=== PATIENT | female | born 1935 | race American Indian/Alaskan Native ===

== ENCOUNTER 2017-08-05 22:50 | Inpatient (IN) | payer MEDICARE ==
--- NOTE | 2017-08-06 00:02 | Emergency Department Report ---
HPI - General Chief Complaint: Dyspnea/Respdistress Time Seen by Provider: 08/05/17 23:47 - HPI HPI: Room 22 The patient is an 82-year-old female presenting with a chief complaint of chest pain or shortness of breath. The patient is a very poor historian but acknowledges she's felt short of breath the past 3 days. There has been a cough. Patient also acknowledges she has chest pain but will not respond when asked about the details of her chest pain. The patient denies any history of fever. Family states the patient also has lost her appetite for the past 3 days. Location: Lungs, chest, see above Duration: 3 days Quality: Shortness of breath Severity: Moderate Modifying factors: [see above] Context: [see above] Mode of transportation: [not driving] ED Past Medical Hx - Past Medical History Previous Medical History?: Yes Hx Hypertension: Yes - Surgical History Past Surgical History?: Yes Additional Surgical History: left knee replacement. - Family History Family history: no significant - Social History Smoking Status: Never Smoker Substance Use Type: Alcohol (rarely) ED Review of Systems ROS: Stated complaint: CP Other details as noted in HPI Comment: Unobtainable due to pts medical conditions (patient reported historian and does not answer all questions) Respiratory: shortness of breath Cardiovascular: chest pain Physical Exam - Physical Exam Vital Signs: Vital Signs 08/05/17 23:37 Temperature 98.2 F Pulse Rate 99 H Respiratory 24 Rate Blood Pressure 90/59 O2 Sat by Pulse 64 L Oximetry Physical Exam: GENERAL: The patient is well-developed well-nourished elderly female lying on stretcher not appearing to be in acute distress. [] HEENT: Normocephalic. Atraumatic. Extraocular motions are intact. Patient has moist mucous membranes. NECK: Supple. Trachea midline CHEST/LUNGS: Clear to auscultation. There is no respiratory distress noted. HEART/CARDIOVASCULAR: Regular. There is no tachycardia. There is no gallop rub or murmur. ABDOMEN: Abdomen is soft, nontender. Patient has normal bowel sounds. There is no abdominal distention. SKIN: There is no rash. There is 2+ bilateral lower extremity pitting edema. There is no diaphoresis. NEURO: The patient is awake and alert. The patient is intermittently cooperative. The patient has normal speech MUSCULOSKELETAL: There is no evidence of acute injury. ED Course Vital Signs 08/05/17 23:37 Temperature 98.2 F Pulse Rate 99 H Respiratory 24 Rate Blood Pressure 90/59 O2 Sat by Pulse 64 L Oximetry ED Medical Decision Making - Lab Data Result diagrams: 08/06/17 00:21 08/06/17 00:21 - EKG Data -: EKG Interpreted by Me EKG shows normal: sinus rhythm Rate: normal - EKG Data When compared to previous EKG there are: previous EKG unavailable Interpretation: nonspecific ST-T wave eun (T-wave inversion in lead aVL, V2, V3) - Radiology Data Radiology results: report reviewed (VQ scan), image reviewed (chest x-ray, VQ scan) interpreted by me: Chest x-ray- indistinct right hemidiaphragm. Possible early infiltrate versus effusion/CHF [facility] [address] [place] [address] Nuclear Medicine Report Signed Patient: ROSALES BECKHAM MR#: [id number] : 1935 Acct:[id number] Age/Sex: 82 / F ADM Date: 08/05/17 Loc: ED Attending Dr: Ordering Physician: CASA JACOBSEN MD Date of Service: 08/06/17 Procedure(s): NM lung scan perf/vent Accession Number(s): [id number] cc: CASA JACOBSEN MD FINAL REPORT PROCEDURE: NM LUNG SCAN PERF/VENT TECHNIQUE: Five mCi Tc-99m MAA was injected IV for pulmonary perfusion imaging in multiple projections. Fifteen mCi XE-133 was inhaled for pulmonary ventilation imaging in multiple projections. Injection site: RIGHT antecubital fossa. CPT 04758 REGULATORY GUIDELINES: The patient was released based upon guidelines established in [place] State Regulations for Protection Against Radiation, Chapter 1199-04-25-35, Release of Individuals Containing Radioactive Drugs or Implants. HISTORY: hypoxia, chest pain COMPARISON: No prior studies are available for comparison. FINDINGS: Perfusion: No defects . Ventilation: No defects . IMPRESSION: Normal Examination Transcribed By: CO Dictated By: FANTA GU MD Electronically Authenticated By: FANTA GU MD Signed Date/Time: 08/06/17340 DD/ 0 TD/TT: 08/06/17340 - Differential Diagnosis congestive heart failure, ACS, pericarditis, pneumonia Critical care attestation.: If time is entered above; I have spent that time in minutes in the direct care of this critically ill patient, excluding procedure time. ED Disposition Clinical Impression: Chest pain, Shortness of breath, Congestive heart failure, Renal insufficiency , Hypoxia Disposition: OP ADMIT IP TO THIS HOSP Is pt being admited?: Yes Does the pt Need Aspirin: No (renal insufficiency) Condition: Serious Instructions: Chest Pain (ED) Time of Disposition: 03:54 (hospitalist paged (Dr. Larisa Ortiz))
[2017-08-06 00:43] LABS: Hematocrit 35.1 % (30.3-42.9); Hemoglobin 10.8 gm/dl (10.1-14.3); Mean Corpuscular Volume 83 fl (79-97); Red Blood Count 4.21 M/mm3 (3.65-5.03)
[2017-08-06 00:44] LABS: Mean Corpuscular HGB Conc 31 % (30-34); Mean Corpuscular Hemoglobin 26 pg (28-32); Platelet Count 250 K/mm3 (140-440)
[2017-08-06 00:47] LABS: INR 0.96 (0.87-1.13)
[2017-08-06 00:48] LABS: Partial Thromboplastin Time 24.2 Sec. (24.2-36.6)
[2017-08-06 01:02] LABS: BUN/Creatinine Ratio 14; Blood Urea Nitrogen 33 mg/dL (7-17); Calcium 8.6 mg/dL (8.4-10.2); Hemolysis Index 2
[2017-08-06 01:28] LABS: Creatine Kinase MB < 1.0 ng/mL (0.0-4.0)
--- NOTE | 2017-08-06 02:06 | XRay Report ---
FINAL REPORT EXAM: XR CHEST 1V AP HISTORY: Shortness of breath. TECHNIQUE: A single frontal portable radiograph of the chest was obtained. No prior studies are available for comparison. FINDINGS: The heart is enlarged, and the aorta is mildly tortuous. There is mild central pulmonary vascular congestion. There are mild bibasilar patchy infiltrates, and probable small bilateral pleural effusions. There is superimposed mild patchy infiltrate in the lateral right midlung. Taken together, these findings may indicate pulmonary edema/CHF, though superimposed pneumonia is not excluded. There is no pneumothorax. Mild spondylotic changes are seen in the spine. IMPRESSION: Cardiomegaly and mild pulmonary vascular congestion. Bilateral infiltrates, most prominent at the bases, with small bilateral pleural effusions. These findings may be on the basis of pulmonary edema/CHF versus pneumonia.
[2017-08-06 02:38] LABS: Band Neutrophils # (Manual) 0.2 K/mm3; Basophils % (Manual) 0 % (0.0-1.8); Eosinophils % (Manual) 0 % (0.0-4.3); Myelocytes # (Manual) 0.1 K/mm3; Total Cells Counted 100
[2017-08-06 02:39] LABS: Hypochromasia 1+; Platelet Estimate Consistent w Auto; Target Cells Few
[2017-08-06] MEDS ORDERED: LASIX IV ONE (03:26)
--- NOTE | 2017-08-06 03:46 | Nuclear Medicine Report ---
FINAL REPORT PROCEDURE: NM LUNG SCAN PERF/VENT TECHNIQUE: Five mCi Tc-99m MAA was injected IV for pulmonary perfusion imaging in multiple projections. Fifteen mCi XE-133 was inhaled for pulmonary ventilation imaging in multiple projections. Injection site: RIGHT antecubital fossa. CPT 22672 REGULATORY GUIDELINES: The patient was released based upon guidelines established in [place] State Regulations for Protection Against Radiation, Chapter 5203-87-19-35, Release of Individuals Containing Radioactive Drugs or Implants. HISTORY: hypoxia, chest pain COMPARISON: No prior studies are available for comparison. FINDINGS: Perfusion: No defects . Ventilation: No defects . IMPRESSION: Normal Examination
[2017-08-06] MEDS ORDERED: LASIX ONE (04:55)
[2017-08-06] MEDS ORDERED: LEVAQUIN 750MG/150ML 750 MG/150 ML BAG IV SCH ×2 (06:00→11:00)
[2017-08-06] MEDS ORDERED: TYLENOL PO PRN (06:22)
[2017-08-06] MEDS ORDERED: ZOFRAN IV PRN (06:22)
[2017-08-06] MEDS ORDERED: SODIUM CHLORIDE FLUSH SYRINGE 10 ML IV PRN (06:22)
--- NOTE | 2017-08-06 06:28 | History and Physical Report ---
History of Present Illness Date of examination: 08/06/17 Date of admission: 08/06/17 04:21 History of present illness: 82-year-old woman comes emergency room with complaints of shortness of breath. She is unable to give a history, probably has underlying dementia. Her chest x- ray shows she has CHF and pneumonia. Review of system is unobtainable PAST MEDICAL HISTORY: Unknown PAST SURGICAL HISTORY: Unknown SOCIAL HISTORY: Unknown FAMILY HISTORY: Unknown Medications and Allergies Allergies Allergy/AdvReac Type Severity Reaction Status Date / Time No Known Allergies Allergy Verified 08/05/17 23:41 Home Medications Medication Instructions Recorded Confirmed Last Taken Type Unobtainable 08/06/17 08/06/17 Unknown History Active Meds: Active Medications Enoxaparin Sodium (Lovenox) 30 mg SUB-Q QDAY [facility] Levofloxacin/Dextrose (Levaquin 750mg/150ml) 750 mg in 150 mls @ 100 mls/hr IV Q48H [facility]; Protocol Exam - Physical Exam Narrative exam: Gen. appearance: Patient lying in bed, no apparent distress HEENT: Normocephalic, atraumatic, pupils equally round and reactive to light, extraocular movement intact, and no sclericterus,. No JVD or thyromegaly or nodule,neck supple, no carotid bruit ,mucous membranes moist, no exudate or erythema Heart: S1, S2, regular rate and rhythm Lungs: Crackles bilaterally, breathing comfortable Abdomen: Positive bowel sounds, nontender, nondistended, no organomegaly Extremity: No edema, cyanosis, clubbing Skin: No rash, nodules, warm, dry Neuro: Oriented 3, cranial nerves II-12 intact, speech is fluent, motor and sensory intact - Constitutional Vitals: Temp Pulse Resp BP Pulse Ox 97.4 F L 72 20 105/64 95 08/06/17 06:06 08/06/17 06:06 08/06/17 06:06 08/06/17 06:06 08/06/17 06:06 Results - Labs CBC & Chem 7: 08/09/17 16:32 08/09/17 16:32 Labs: Abnormal lab results 08/06/17 08/06/17 08/06/17 Range/Units 00:15 00:21 00:21 MCH 26 L (28-32) pg RDW 18.0 H (13.2-15.2) % Seg Neuts % (Manual) 84.0 H (40.0-70.0) % Lymphocytes % (Manual) 6.0 L (13.4-35.0) % Nucleated RBC % 4.0 H (0.0-0.9) % Seg Neutrophils # Man 8.1 H (1.8-7.7) K/mm3 Lymphocytes # (Manual) 0.6 L (1.2-5.4) K/mm3 D-Dimer (0-234) ng/mlDDU POC ABG pCO2 57.0 H (35-45) POC ABG pO2 41 L (80-105) Chloride 94.5 L (98-107) mmol/L Carbon Dioxide 32 H (22-30) mmol/L BUN 33 H (7-17) mg/dL Creatinine 2.4 H (0.7-1.2) mg/dL Glucose 128 H (65-100) mg/dL 08/06/17 Range/Units 00:21 MCH (28-32) pg RDW (13.2-15.2) % Seg Neuts % (Manual) (40.0-70.0) % Lymphocytes % (Manual) (13.4-35.0) % Nucleated RBC % (0.0-0.9) % Seg Neutrophils # Man (1.8-7.7) K/mm3 Lymphocytes # (Manual) (1.2-5.4) K/mm3 D-Dimer 765.25 H (0-234) ng/mlDDU POC ABG pCO2 (35-45) POC ABG pO2 (80-105) Chloride (98-107) mmol/L Carbon Dioxide (22-30) mmol/L BUN (7-17) mg/dL Creatinine (0.7-1.2) mg/dL Glucose (65-100) mg/dL - Imaging and Cardiology EKG: image reviewed Chest x-ray: image reviewed Assessment and Plan Assessment CHF, probably acute on chronic diastolic dysfunction Community-acquired pneumonia Chronic kidney disease Plan Admit to medicine Start IV Levaquin, obtain blood cultures Diurese with IV Lasix, start aspirin Hold beta elias, MESFIN inhibitor for now, blood pressure will not tolerate Cardiac enzymes, echo 2. She prophylaxis
[2017-08-06 08:00] LABS: Creatine Kinase MB < 1.0 ng/mL (0.0-4.0)
[2017-08-06] MEDS: BABY ASPIRIN PO SCH (10:48)
[2017-08-06] MEDS: LOVENOX SUB-Q SCH (10:50)
--- NOTE | 2017-08-06 12:31 | Consultation ---
History of Present Illness Consult date: 08/06/17 Consult reason: congestive heart failure History of present illness: This is an 82yr old women who was brought in with shortness of breath, admitted with CHF exacerbation. History is unobtainable. There were no reports of chest pain. Labs notable for renal insufficiency, creatinine of 2.4. Chest xray documents cardiomegaly with vascular congestion. 12 lead ECG is atrial fibrillation with a well controlled ventricular rate. It is unclear if the patient is on oral anticoagualtion therapy, there are no home medications listed. A cardiac consultation was requested for CHF management. Medications and Allergies Allergies Allergy/AdvReac Type Severity Reaction Status Date / Time No Known Allergies Allergy Verified 08/05/17 23:41 Home Medications Medication Instructions Recorded Confirmed Last Taken Type Unobtainable 08/06/17 08/06/17 Unknown History Active Meds: Active Medications Acetaminophen (Tylenol) 650 mg PO Q4H PRN PRN Reason: Pain MILD(1-3)/Fever >100.5/HARRISON Aspirin (Baby Aspirin) 81 mg PO QDAY [facility] Last Admin: 08/06/17 10:48 Dose: 81 mg Enoxaparin Sodium (Lovenox) 30 mg SUB-Q QDAY [facility] Last Admin: 08/06/17 10:50 Dose: 30 mg Furosemide (Lasix) 20 mg IV BID@0600,1800 [facility] Levofloxacin/Dextrose (Levaquin 750mg/150ml) 750 mg in 150 mls @ 100 mls/hr IV Q48HR [facility]; Protocol Last Admin: 08/06/17 10:48 Dose: 100 mls/hr Ondansetron HCl (Zofran) 4 mg IV Q8H PRN PRN Reason: Nausea And Vomiting Sodium Chloride (Sodium Chloride Flush Syringe 10 Ml) 10 ml IV BID [facility] Sodium Chloride (Sodium Chloride Flush Syringe 10 Ml) 10 ml IV PRN PRN PRN Reason: LINE FLUSH Physical Examination Vital Signs Temp Pulse Resp BP Pulse Ox 98.2 F 99 H 24 90/59 64 L 08/05/17 23:37 08/05/17 23:37 08/05/17 23:37 08/05/17 23:37 08/05/17 23:37 General appearance: no acute distress Cardiac: Positive: irregularly irregular Results 08/06/17 00:21 05/21/18 00:21 Cardiac Enzymes 08/06/17 08/06/17 Range/Units 00:21 06:36 CK-MB (CK-2) < 1.0 < 1.0 (0.0-4.0) ng/mL Coagulation 08/06/17 Range/Units 00:21 PT 13.3 (12.2-14.9) Sec. INR 0.96 (0.87-1.13) APTT 24.2 (24.2-36.6) Sec. CBC 08/06/17 Range/Units 00:21 WBC 9.7 (4.5-11.0) K/mm3 RBC 4.21 (3.65-5.03) M/mm3 Hgb 10.8 (10.1-14.3) gm/dl Hct 35.1 (30.3-42.9) % Plt Count 250 (140-440) K/mm3 Lymph # Residential Substance Abuse Counselor [place] # Residential Substance Abuse Counselor Eos # Residential Substance Abuse Counselor Baso # Residential Substance Abuse Counselor Comprehensive Metabolic Panel 08/06/17 Range/Units 00:21 Sodium 140 (137-145) mmol/L Potassium 3.7 (3.6-5.0) mmol/L Chloride 94.5 L (98-107) mmol/L Carbon Dioxide 32 H (22-30) mmol/L BUN 33 H (7-17) mg/dL Creatinine 2.4 H (0.7-1.2) mg/dL Glucose 128 H (65-100) mg/dL Calcium 8.6 (8.4-10.2) mg/dL Assessment and Plan Acute heart failure Atrial fibrillation, rate control Acute renal failure
[2017-08-06 14:12] LABS: Creatine Kinase MB < 1.0 ng/mL (0.0-4.0)
--- NOTE | 2017-08-06 16:27 | Event Note ---
Date: 08/06/17 82-year-old -[place] female with medical history significant for dementia, morbid obesity was admitted yesterday after she was presented with shortness of breath. Patient is diagnosed with pneumonia and CHF and A. fib. Patient is on IV antibiotics, IV lasix, cardiology consult appreciated. Continue management per H&P. Patient was seen and evaluated this morning, labs imaging and H&P were reviewed.
[2017-08-06] MEDS: LASIX IV SCH (17:46)
[2017-08-06] MEDS: SODIUM CHLORIDE FLUSH SYRINGE 10 ML IV SCH ×2 (17:47→22:55)
[2017-08-07] MEDS: LASIX IV SCH ×2 (05:55→17:38)
[2017-08-07 08:21] LABS: Calcium 8.4 mg/dL (8.4-10.2)
[2017-08-07 08:24] LABS: Hematocrit 31.9 % (30.3-42.9); Mean Corpuscular HGB Conc 31 % (30-34); Mean Corpuscular Hemoglobin 26 pg (28-32); Mean Corpuscular Volume 83 fl (79-97); Platelet Count 192 K/mm3 (140-440); Red Blood Count 3.83 M/mm3 (3.65-5.03); Red Cell Distribution Width 17.5 % (13.2-15.2)
[2017-08-07 08:26] LABS: Basophils % (Auto) 0.2 % (0.0-1.8); Eosinophils % (Auto) 0.1 % (0.0-4.3); Lymphocytes # (Auto) 0.8 K/mm3 (1.2-5.4); Monocytes # (Auto) 1.2 K/mm3 (0.0-0.8); Monocytes % (Auto) 12.5 % (0.0-7.3)
--- NOTE | 2017-08-07 10:07 | Progress Note ---
Assessment and Plan Assessment and plan: 82 year old -Dominican female with medical history significant for dementia, HIV/AIDS, A. fib on anticoagulation was brought to the emergency department for the complains of shortness of breath. In the emergency department chest x-ray was done and showed pulmonary congestion, elevated creatinine Congestive heart failure - Diastolic CHF - Patient is on IV Lasix - Blood pressure is marginal and couldn't tolerate any other blood pressure medication Atrial fibrillation - EKG showed atrial fibrillation, couldn't get previous EKG - We'll continue Coumadin TREY, ?CKD - No baseline to compare - Creatinine decreased from 2.4 yesterday to 1.7 today, likely due to cardiorenal syndrome Hyperkalemia - Kayexalate - We'll check BMP in the morning Dementia - supportive care HIV/AIDS - Restart home medication DVT prophylaxis - On heparin Disposition -Continue inpatient care History Interval history: Patient is still complaining shortness of breath. Her was in the room and have discussed the management plan with the patient and her . I get the medical record from [facility]. Hospitalist Physical - Physical exam Narrative exam: Not in cardiopulmonary distress. The patient is morbidly obese. Vital signs as documented. Head exam is unremarkable. No scleral icterus . Neck is without jugular venous distension, thyromegaly, or carotid bruits. Lungs are clear to auscultation. Cardiac exam reveals irregular rate and Rhythm. Abdominal exam reveals normal bowel sounds. Extremities are nonedematous and both femoral and pedal pulses are normal. [employer]: Alert and oriented 1. No focal weakness. - Constitutional Vitals: Temp Pulse Resp BP Pulse Ox 98.5 F 91 H 24 146/77 94 08/07/17 07:46 08/07/17 07:46 08/07/17 07:46 08/07/17 07:46 08/07/17 08:19 General appearance: Present: no acute distress Results - Labs CBC & Chem 7: 08/07/17 06:38 08/07/17 06:38 Labs: Laboratory Last Values WBC 9.2 K/mm3 (4.5-11.0) 08/07/17 06:38 RBC 3.83 M/mm3 (3.65-5.03) 08/07/17 06:38 Hgb 10.0 gm/dl (10.1-14.3) L 08/07/17 06:38 Hct 31.9 % (30.3-42.9) 08/07/17 06:38 MCV 83 fl (79-97) 08/07/17 06:38 MCH 26 pg (28-32) L 08/07/17 06:38 MCHC 31 % (30-34) 08/07/17 06:38 RDW 17.5 % (13.2-15.2) H 08/07/17 06:38 Plt Count 192 K/mm3 (140-440) 08/07/17 06:38 Lymph % (Auto) 9.0 % (13.4-35.0) L 08/07/17 06:38 [place] % (Auto) 12.5 % (0.0-7.3) H 08/07/17 06:38 Eos % (Auto) 0.1 % (0.0-4.3) 08/07/17 06:38 Baso % (Auto) 0.2 % (0.0-1.8) 08/07/17 06:38 Lymph # 0.8 K/mm3 (1.2-5.4) L 08/07/17 06:38 [place] # 1.2 K/mm3 (0.0-0.8) H 08/07/17 06:38 Eos # 0.0 K/mm3 (0.0-0.4) 08/07/17 06:38 Baso # 0.0 K/mm3 (0.0-0.1) 08/07/17 06:38 Add Manual Diff Complete 08/06/17 00:21 Total Counted 100 08/06/17 00:21 Seg Neutrophils % 78.2 % (40.0-70.0) H 08/07/17 06:38 Seg Neuts % (Manual) 84.0 % (40.0-70.0) H 08/06/17 00:21 Band Neutrophils % 2.0 % 08/06/17 00:21 Lymphocytes % (Manual) 6.0 % (13.4-35.0) L 08/06/17 00:21 Reactive Lymphs % (Man) 0 % 08/06/17 00:21 Monocytes % (Manual) 7.0 % (0.0-7.3) 08/06/17 00:21 Eosinophils % (Manual) 0 % (0.0-4.3) 08/06/17 00:21 Basophils % (Manual) 0 % (0.0-1.8) 08/06/17 00:21 Metamyelocytes % 0 % 08/06/17 00:21 Myelocytes % 1.0 % 08/06/17 00:21 Promyelocytes % 0 % 08/06/17 00:21 Blast Cells % 0 % 08/06/17 00:21 Nucleated RBC % 4.0 % (0.0-0.9) H 08/06/17 00:21 Seg Neutrophils # 7.2 K/mm3 (1.8-7.7) 08/07/17 06:38 Seg Neutrophils # Man 8.1 K/mm3 (1.8-7.7) H 08/06/17 00:21 Band Neutrophils # 0.2 K/mm3 08/06/17 00:21 Lymphocytes # (Manual) 0.6 K/mm3 (1.2-5.4) L 08/06/17 00:21 Abs React Lymphs (Man) 0.0 K/mm3 08/06/17 00:21 Monocytes # (Manual) 0.7 K/mm3 (0.0-0.8) 08/06/17 00:21 Eosinophils # (Manual) 0.0 K/mm3 (0.0-0.4) 08/06/17 00:21 Basophils # (Manual) 0.0 K/mm3 (0.0-0.1) 08/06/17 00:21 Metamyelocytes # 0.0 K/mm3 08/06/17 00:21 Myelocytes # 0.1 K/mm3 08/06/17 00:21 Promyelocytes # 0.0 K/mm3 08/06/17 00:21 Blast Cells # 0.0 K/mm3 08/06/17 00:21 WBC Morphology Not Reportable 08/06/17 00:21 Hypersegmented Neuts Not Reportable 08/06/17 00:21 Hyposegmented Neuts Not Reportable 08/06/17 00:21 Hypogranular Neuts Not Reportable 08/06/17 00:21 Smudge Cells Not Reportable 08/06/17 00:21 Toxic Granulation Not Reportable 08/06/17 00:21 Toxic Vacuolation Not Reportable 08/06/17 00:21 Dohle Bodies Not Reportable 08/06/17 00:21 Pelger-Huet Anomaly Not Reportable 08/06/17 00:21 Bryant Rods Not Reportable 08/06/17 00:21 Platelet Estimate Consistent w auto 08/06/17 00:21 Clumped Platelets Not Reportable 08/06/17 00:21 Plt Clumps, EDTA Not Reportable 08/06/17 00:21 Large Platelets Not Reportable 08/06/17 00:21 Giant Platelets Not Reportable 08/06/17 00:21 Platelet Satelliting Not Reportable 08/06/17 00:21 Plt Morphology Comment Not Reportable 08/06/17 00:21 RBC Morphology Not Reportable 08/06/17 00:21 Dimorphic RBCs Not Reportable 08/06/17 00:21 Polychromasia Not Reportable 08/06/17 00:21 Hypochromasia 1+ 08/06/17 00:21 Poikilocytosis Not Reportable 08/06/17 00:21 Anisocytosis Not Reportable 08/06/17 00:21 Microcytosis Not Reportable 08/06/17 00:21 Macrocytosis Not Reportable 08/06/17 00:21 Spherocytes Not Reportable 08/06/17 00:21 Pappenheimer Bodies Not Reportable 08/06/17 00:21 Sickle Cells Not Reportable 08/06/17 00:21 Target Cells Few 08/06/17 00:21 Tear Drop Cells Not Reportable 08/06/17 00:21 Ovalocytes Not Reportable 08/06/17 00:21 Helmet Cells Not Reportable 08/06/17 00:21 [place] Bodies Not Reportable 08/06/17 00:21 [place] Rings Not Reportable 08/06/17 00:21 [place] Cells Not Reportable 08/06/17 00:21 Bite Cells Not Reportable 08/06/17 00:21 Crenated Cell Not Reportable 08/06/17 00:21 Elliptocytes Not Reportable 08/06/17 00:21 Acanthocytes (Spur) Not Reportable 08/06/17 00:21 Rouleaux Not Reportable 08/06/17 00:21 Hemoglobin C Crystals Not Reportable 08/06/17 00:21 Schistocytes Not Reportable 08/06/17 00:21 Malaria parasites Not Reportable 08/06/17 00:21 Carlo Bodies Not Reportable 08/06/17 00:21 Hem Pathologist Commnt No 08/06/17 00:21 PT 13.3 Sec. (12.2-14.9) 08/06/17 00:21 INR 0.96 (0.87-1.13) 08/06/17 00:21 APTT 24.2 Sec. (24.2-36.6) 08/06/17 00:21 D-Dimer 765.25 ng/mlDDU (0-234) H 08/06/17 00:21 POC ABG pH 7.395 (7.35-7.45) 08/06/17 00:15 POC ABG pCO2 57.0 (35-45) H 08/06/17 00:15 POC ABG pO2 41 (80-105) L 08/06/17 00:15 POC ABG HCO3 34.9 08/06/17 00:15 POC ABG Total CO2 37 08/06/17 00:15 POC ABG O2 Sat 75 08/06/17 00:15 POC ABG Base Excess 10 08/06/17 00:15 FiO2 21 % 08/06/17 00:15 Sodium 139 mmol/L (137-145) 08/07/17 06:38 Potassium 5.5 mmol/L (3.6-5.0) H D 08/07/17 06:38 Chloride 98.4 mmol/L (98-107) 08/07/17 06:38 Carbon Dioxide 31 mmol/L (22-30) H 08/07/17 06:38 Anion Gap 15 mmol/L 08/07/17 06:38 BUN 41 mg/dL (7-17) H 08/07/17 06:38 Creatinine 1.7 mg/dL (0.7-1.2) H 08/07/17 06:38 Estimated GFR 35 ml/min 08/07/17 06:38 BUN/Creatinine Ratio 24 % 08/07/17 06:38 Glucose 88 mg/dL (65-100) 08/07/17 06:38 Calcium 8.4 mg/dL (8.4-10.2) 08/07/17 06:38 Total Creatine Kinase 37 units/L (30-135) 05/21/18 12:45 CK-MB (CK-2) < 1.0 ng/mL (0.0-4.0) 08/06/17 12:45 CK-MB (CK-2) Rel Index 2.7 (0-4) 08/06/17 12:45 Troponin T < 0.010 ng/mL (0.00-0.029) 08/06/17 12:45
[2017-08-07] MEDS: BABY ASPIRIN PO SCH (10:51)
[2017-08-07] MEDS: LOVENOX SUB-Q SCH (10:51)
[2017-08-07] MEDS: SODIUM CHLORIDE FLUSH SYRINGE 10 ML IV SCH ×2 (10:51→22:00)
--- NOTE | 2017-08-07 13:14 | Progress Note ---
Assessment and Plan Acute heart failure normal LVEF 55-60% by echo 01/2017 Chronic Atrial fibrillation, rate control reports of warfarin for oral anticoagulation as an outpatient. It is unclear on compliance, INR sub-therapeutic at 0.96 on presentation. Acute renal failure Hx of HIV infection Recommendations: Echocardiogram will be done for reassessment of LVEF. Optimal diuretic therapy for heart failure and fluid overload. Resume oral anticoagulation for stroke prevention. Subjective Date of service: 08/07/17 Interval history: No interval changes. Records reviewed from [facility]. Objective Vital Signs Temp Pulse Pulse Resp BP BP Pulse Ox 08/07/17 12:20 98.5 F 107 H 20 110/79 93 08/07/17 08:19 94 08/07/17 07:46 98.5 F 91 H 24 146/77 97 08/07/17 04:57 98.9 F 106 H 18 110/66 96 08/07/17 04:21 116 H 104/46 96 08/07/17 00:21 98.9 F 104 H 18 103/36 95 08/06/17 23:26 103/31 08/06/17 23:00 84 08/06/17 21:50 104 H 26 H 100 08/06/17 21:45 86 08/06/17 21:03 80 16 93 08/06/17 19:54 98.2 F 84 20 97/56 91 08/06/17 19:26 95 H 97/56 92 08/06/17 17:00 97.6 F 74 22 109/79 93 08/06/17 15:10 97.6 F 77 22 109/79 93 - Physical Examination General: No Apparent Distress Cardiac: Positive: irregularly irregular - Labs and Meds Cardiac Enzymes 08/06/17 Range/Units 12:45 CK-MB (CK-2) < 1.0 (0.0-4.0) ng/mL CBC 08/07/17 Range/Units 06:38 WBC 9.2 (4.5-11.0) K/mm3 RBC 3.83 (3.65-5.03) M/mm3 Hgb 10.0 L (10.1-14.3) gm/dl Hct 31.9 (30.3-42.9) % Plt Count 192 (140-440) K/mm3 Lymph # 0.8 L (1.2-5.4) K/mm3 [place] # 1.2 H (0.0-0.8) K/mm3 Eos # 0.0 (0.0-0.4) K/mm3 Baso # 0.0 (0.0-0.1) K/mm3 Comprehensive Metabolic Panel 08/07/17 Range/Units 06:38 Sodium 139 (137-145) mmol/L Potassium 5.5 H D (3.6-5.0) mmol/L Chloride 98.4 (98-107) mmol/L Carbon Dioxide 31 H (22-30) mmol/L BUN 41 H (7-17) mg/dL Creatinine 1.7 H (0.7-1.2) mg/dL Glucose 88 (65-100) mg/dL Calcium 8.4 (8.4-10.2) mg/dL - Imaging and Cardiology EKG: image reviewed
[2017-08-07] MEDS ORDERED: TIVICAY 50 MG PO SCH (16:00)
[2017-08-07] MEDS ORDERED: PREZCOBIX PO SCH (16:00)
[2017-08-07] MEDS ORDERED: KIONEX PO ONE (17:00)
[2017-08-07] MEDS: ZIAGEN PO SCH (17:40)
[2017-08-07] MEDS: TIVICAY (NF) PO SCH (17:40)
[2017-08-07] MEDS: PREZISTA PO SCH (17:41)
[2017-08-07] MEDS: COUMADIN PO SCH (17:42)
[2017-08-08] MEDS: LASIX IV SCH ×2 (06:26→18:24)
[2017-08-08 07:03] LABS: Basophils # (Auto) 0.1 K/mm3 (0.0-0.1); Basophils % (Auto) 0.6 % (0.0-1.8); Hematocrit 28.6 % (30.3-42.9); Hemoglobin 8.9 gm/dl (10.1-14.3); Lymphocytes # (Auto) 1.1 K/mm3 (1.2-5.4); Lymphocytes % (Auto) 10.2 % (13.4-35.0); Mean Corpuscular HGB Conc 31 % (30-34); Mean Corpuscular Volume 82 fl (79-97); Monocytes # (Auto) 1.2 K/mm3 (0.0-0.8); Monocytes % (Auto) 10.9 % (0.0-7.3); Platelet Count 202 K/mm3 (140-440); Red Blood Count 3.47 M/mm3 (3.65-5.03); Red Cell Distribution Width 17.3 % (13.2-15.2)
[2017-08-08 07:08] LABS: INR 1.1 (0.87-1.13)
[2017-08-08 07:22] LABS: BUN/Creatinine Ratio 32; Blood Urea Nitrogen 32 mg/dL (7-17); Calcium 8.5 mg/dL (8.4-10.2); Hemolysis Index 27
[2017-08-08 07:37] LABS: Mean Corpuscular Hemoglobin 26 pg (28-32)
[2017-08-08] MEDS ORDERED: LEVAQUIN PO SCH (10:00)
--- NOTE | 2017-08-08 10:24 | Progress Note ---
Assessment and Plan Pulmonary edema ventilation perfusion study of the lungs was negative for pulmonary embolism. Chronic Atrial fibrillation, rate control reports of warfarin for oral anticoagulation as an outpatient. It is unclear on compliance, INR sub- therapeutic at 0.96 on presentation. Acute renal failure Hx of HIV infection Echocardiogram shows severe dilatation of the right heart chambers, moderate tricuspid regurgitation, and moderate pulmonary hypertension with pulmonary artery systolic pressures of 55 mmHg. Findings are consistent with chronic cor pulmonale. In addition to right heart findings, there is marked dilatation of the left atrium. There is at least mild to moderate mitral regurgitation. Left ventricular chamber size and systolic function are normal with an ejection fraction of 55%. Continue optimal rate controlling agents and oral anticoagulation for chronic atrial fibrillation. Otherwise, conservative cardiac management. Subjective Date of service: 08/08/17 Interval history: Patient reports her breathing is better. Family member at bedside. Objective Vital Signs Temp Pulse Resp BP BP Pulse Ox 08/08/17 08:36 99.7 F H 108 H 22 126/76 94 08/08/17 05:06 97.9 F 111 H 18 104/55 98 08/08/17 02:01 92 H 26 H 100 08/08/17 00:12 98.2 F 114 H 18 127/68 99 08/07/17 23:18 94 H 22 100 08/07/17 23:15 90 08/07/17 22:00 18 08/07/17 19:22 98.2 F 18 138/78 08/07/17 16:55 98.2 F 117 H 20 131/66 93 08/07/17 12:20 98.5 F 107 H 20 110/79 93 - Physical Examination General: No Apparent Distress Cardiac: Positive: irregularly irregular - Labs and Meds Coagulation 08/08/17 Range/Units 06:36 PT 14.8 (12.2-14.9) Sec. INR 1.10 (0.87-1.13) CBC 08/08/17 Range/Units 06:36 WBC 11.2 H (4.5-11.0) K/mm3 RBC 3.47 L (3.65-5.03) M/mm3 Hgb 8.9 L (10.1-14.3) gm/dl Hct 28.6 L (30.3-42.9) % Plt Count 202 (140-440) K/mm3 Lymph # 1.1 L (1.2-5.4) K/mm3 [place] # 1.2 H (0.0-0.8) K/mm3 Eos # 0.0 (0.0-0.4) K/mm3 Baso # 0.1 (0.0-0.1) K/mm3 Comprehensive Metabolic Panel 08/08/17 Range/Units 06:36 Sodium 150 H D (137-145) mmol/L Potassium 4.0 D (3.6-5.0) mmol/L Chloride 100.6 (98-107) mmol/L Carbon Dioxide 41 H* D (22-30) mmol/L BUN 32 H (7-17) mg/dL Creatinine 1.0 (0.7-1.2) mg/dL Glucose 124 H (65-100) mg/dL Calcium 8.5 (8.4-10.2) mg/dL
[2017-08-08] MEDS: PREZISTA PO SCH (10:39)
[2017-08-08] MEDS: BABY ASPIRIN PO SCH (10:39)
[2017-08-08] MEDS: ZIAGEN PO SCH (10:40)
[2017-08-08] MEDS: TIVICAY (NF) PO SCH (10:40)
[2017-08-08] MEDS: SODIUM CHLORIDE FLUSH SYRINGE 10 ML IV SCH ×2 (10:43→22:16)
--- NOTE | 2017-08-08 17:02 | Progress Note ---
Assessment and Plan Assessment and plan: 82 year old -British female with medical history significant for dementia, HIV/AIDS, A. fib on anticoagulation was brought to the emergency department for the complains of shortness of breath. In the emergency department chest x-ray was done and showed pulmonary congestion, elevated creatinine Congestive heart failure - Diastolic CHF - Patient is on IV Lasix - Blood pressure is marginal and couldn't tolerate any other blood pressure medication Cor pulmonale - Pulmonary consulted Atrial fibrillation - EKG showed atrial fibrillation, couldn't get previous EKG - We'll continue Coumadin TREY, ?CKD - No baseline to compare - Creatinine decreased from 2.4 yesterday to 1.7 today, likely due to cardiorenal syndrome Hyperkalemia - Kayexalate - We'll check BMP in the morning Dementia - supportive care HIV/AIDS - Restart home medication DVT prophylaxis - On Coumadin Disposition -Continue inpatient care History Interval history: Patient is still complaining shortness of breath. Her was in the room and have discussed the management plan with the patient and her . Hospitalist Physical - Physical exam Narrative exam: Not in cardiopulmonary distress. The patient is morbidly obese. Vital signs as documented. Head exam is unremarkable. No scleral icterus . Neck is without jugular venous distension, thyromegaly, or carotid bruits. Lungs are clear to auscultation. Cardiac exam reveals irregular rate and Rhythm. Abdominal exam reveals normal bowel sounds. Extremities are nonedematous and both femoral and pedal pulses are normal. 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 No focal weakness. - Constitutional Vitals: Temp Pulse Resp BP Pulse Ox 99.7 F H 108 H 22 126/76 94 08/08/17 08:36 08/08/17 08:36 08/08/17 08:36 08/08/17 08:36 08/08/17 08:36 General appearance: Present: no acute distress Results - Labs CBC & Chem 7: 08/08/17 06:36 08/08/17 06:36 Labs: Laboratory Last Values WBC 11.2 K/mm3 (4.5-11.0) H 08/08/17 06:36 RBC 3.47 M/mm3 (3.65-5.03) L 08/08/17 06:36 Hgb 8.9 gm/dl (10.1-14.3) L 08/08/17 06:36 Hct 28.6 % (30.3-42.9) L 08/08/17 06:36 MCV 82 fl (79-97) 08/08/17 06:36 MCH 26 pg (28-32) L 08/08/17 06:36 MCHC 31 % (30-34) 08/08/17 06:36 RDW 17.3 % (13.2-15.2) H 08/08/17 06:36 Plt Count 202 K/mm3 (140-440) 08/08/17 06:36 Lymph % (Auto) 10.2 % (13.4-35.0) L 08/08/17 06:36 [place] % (Auto) 10.9 % (0.0-7.3) H 08/08/17 06:36 Eos % (Auto) 0.0 % (0.0-4.3) 08/08/17 06:36 Baso % (Auto) 0.6 % (0.0-1.8) 08/08/17 06:36 Lymph # 1.1 K/mm3 (1.2-5.4) L 08/08/17 06:36 [place] # 1.2 K/mm3 (0.0-0.8) H 08/08/17 06:36 Eos # 0.0 K/mm3 (0.0-0.4) 08/08/17 06:36 Baso # 0.1 K/mm3 (0.0-0.1) 08/08/17 06:36 Add Manual Diff Complete 08/06/17 00:21 Total Counted 100 08/06/17 00:21 Seg Neutrophils % 78.3 % (40.0-70.0) H 08/08/17 06:36 Seg Neuts % (Manual) 84.0 % (40.0-70.0) H 08/06/17 00:21 Band Neutrophils % 2.0 % 08/06/17 00:21 Lymphocytes % (Manual) 6.0 % (13.4-35.0) L 08/06/17 00:21 Reactive Lymphs % (Man) 0 % 08/06/17 00:21 Monocytes % (Manual) 7.0 % (0.0-7.3) 08/06/17 00:21 Eosinophils % (Manual) 0 % (0.0-4.3) 08/06/17 00:21 Basophils % (Manual) 0 % (0.0-1.8) 08/06/17 00:21 Metamyelocytes % 0 % 08/06/17 00:21 Myelocytes % 1.0 % 08/06/17 00:21 Promyelocytes % 0 % 08/06/17 00:21 Blast Cells % 0 % 08/06/17 00:21 Nucleated RBC % 4.0 % (0.0-0.9) H 08/06/17 00:21 Seg Neutrophils # 8.8 K/mm3 (1.8-7.7) H 08/08/17 06:36 Seg Neutrophils # Man 8.1 K/mm3 (1.8-7.7) H 08/06/17 00:21 Band Neutrophils # 0.2 K/mm3 08/06/17 00:21 Lymphocytes # (Manual) 0.6 K/mm3 (1.2-5.4) L 08/06/17 00:21 Abs React Lymphs (Man) 0.0 K/mm3 08/06/17 00:21 Monocytes # (Manual) 0.7 K/mm3 (0.0-0.8) 08/06/17 00:21 Eosinophils # (Manual) 0.0 K/mm3 (0.0-0.4) 08/06/17 00:21 Basophils # (Manual) 0.0 K/mm3 (0.0-0.1) 08/06/17 00:21 Metamyelocytes # 0.0 K/mm3 08/06/17 00:21 Myelocytes # 0.1 K/mm3 08/06/17 00:21 Promyelocytes # 0.0 K/mm3 08/06/17 00:21 Blast Cells # 0.0 K/mm3 08/06/17 00:21 WBC Morphology Not Reportable 08/06/17 00:21 Hypersegmented Neuts Not Reportable 08/06/17 00:21 Hyposegmented Neuts Not Reportable 08/06/17 00:21 Hypogranular Neuts Not Reportable 08/06/17 00:21 Smudge Cells Not Reportable 08/06/17 00:21 Toxic Granulation Not Reportable 08/06/17 00:21 Toxic Vacuolation Not Reportable 08/06/17 00:21 Dohle Bodies Not Reportable 08/06/17 00:21 Pelger-Huet Anomaly Not Reportable 08/06/17 00:21 Bryant Rods Not Reportable 08/06/17 00:21 Platelet Estimate Consistent w auto 08/06/17 00:21 Clumped Platelets Not Reportable 08/06/17 00:21 Plt Clumps, EDTA Not Reportable 08/06/17 00:21 Large Platelets Not Reportable 08/06/17 00:21 Giant Platelets Not Reportable 08/06/17 00:21 Platelet Satelliting Not Reportable 08/06/17 00:21 Plt Morphology Comment Not Reportable 08/06/17 00:21 RBC Morphology Not Reportable 08/06/17 00:21 Dimorphic RBCs Not Reportable 08/06/17 00:21 Polychromasia Not Reportable 08/06/17 00:21 Hypochromasia 1+ 08/06/17 00:21 Poikilocytosis Not Reportable 08/06/17 00:21 Anisocytosis Not Reportable 08/06/17 00:21 Microcytosis Not Reportable 08/06/17 00:21 Macrocytosis Not Reportable 08/06/17 00:21 Spherocytes Not Reportable 08/06/17 00:21 Pappenheimer Bodies Not Reportable 08/06/17 00:21 Sickle Cells Not Reportable 08/06/17 00:21 Target Cells Few 08/06/17 00:21 Tear Drop Cells Not Reportable 08/06/17 00:21 Ovalocytes Not Reportable 08/06/17 00:21 Helmet Cells Not Reportable 08/06/17 00:21 Cheek-Lyden Bodies Not Reportable 08/06/17 00:21 [place] Rings Not Reportable 08/06/17 00:21 [place] Cells Not Reportable 08/06/17 00:21 Bite Cells Not Reportable 08/06/17 00:21 Crenated Cell Not Reportable 08/06/17 00:21 Elliptocytes Not Reportable 08/06/17 00:21 Acanthocytes (Spur) Not Reportable 08/06/17 00:21 Rouleaux Not Reportable 08/06/17 00:21 Hemoglobin C Crystals Not Reportable 08/06/17 00:21 Schistocytes Not Reportable 08/06/17 00:21 Malaria parasites Not Reportable 08/06/17 00:21 Carlo Bodies Not Reportable 08/06/17 00:21 Hem Pathologist Commnt No 08/06/17 00:21 PT 14.8 Sec. (12.2-14.9) 08/08/17 06:36 INR 1.10 (0.87-1.13) 08/08/17 06:36 APTT 24.2 Sec. (24.2-36.6) 08/06/17 00:21 D-Dimer 765.25 ng/mlDDU (0-234) H 08/06/17 00:21 POC ABG pH 7.520 (7.35-7.45) H 08/08/17 10:06 POC ABG pCO2 59.5 (35-45) H 08/08/17 10:06 POC ABG pO2 59 (80-105) L 08/08/17 10:06 POC ABG HCO3 48.7 08/08/17 10:06 POC ABG Total CO2 > 50 08/08/17 10:06 POC ABG O2 Sat 92 08/08/17 10:06 POC ABG Base Excess 26 08/08/17 10:06 FiO2 36 % 08/08/17 10:06 Sodium 150 mmol/L (137-145) H D 08/08/17 06:36 Potassium 4.0 mmol/L (3.6-5.0) D 08/08/17 06:36 Chloride 100.6 mmol/L (98-107) 08/08/17 06:36 Carbon Dioxide 41 mmol/L (22-30) H* D 08/08/17 06:36 Anion Gap 12 mmol/L 08/08/17 06:36 BUN 32 mg/dL (7-17) H 08/08/17 06:36 Creatinine 1.0 mg/dL (0.7-1.2) 08/08/17 06:36 Estimated GFR > 60 ml/min 08/08/17 06:36 BUN/Creatinine Ratio 32 % 08/08/17 06:36 Glucose 124 mg/dL (65-100) H 08/08/17 06:36 Calcium 8.5 mg/dL (8.4-10.2) 08/08/17 06:36 Total Creatine Kinase 37 units/L (30-135) 08/06/17 12:45 CK-MB (CK-2) < 1.0 ng/mL (0.0-4.0) 08/06/17 12:45 CK-MB (CK-2) Rel Index 2.7 (0-4) 08/06/17 12:45 Troponin T < 0.010 ng/mL (0.00-0.029) 08/06/17 12:45
[2017-08-08] MEDS: COUMADIN PO SCH (17:23)
--- NOTE | 2017-08-08 17:24 | Consultation ---
History of Present Illness Consult date: 08/08/17 Requesting physician: OMAR LOWE Reason for consult: pulmonary hypertension History of present illness: 82 y/o,morbidly obese female with known HIV and Dementia, admitted with shortness of breath. Patient found to have pulmonary hypertension on echo and pulmonary was consulted. Currently she is in the room, alone, on venti-mask. She cannot provide any history. No family at bedside as mentioned. CXR shows cardiomegaly with some pulmonary vascular congestion. Past History Past Medical History: HIV/AIDS, hypertension Medications and Allergies Allergies Allergy/AdvReac Type Severity Reaction Status Date / Time No Known Allergies Allergy Verified 08/05/17 23:41 Home Medications Medication Instructions Recorded Confirmed Last Taken Type Unobtainable 08/06/17 08/06/17 Unknown History Active Meds: Active Medications Abacavir Sulfate (Ziagen) 600 mg PO DAILY [facility] Last Admin: 08/08/17 10:40 Dose: 600 mg Acetaminophen (Tylenol) 650 mg PO Q4H PRN PRN Reason: Pain MILD(1-3)/Fever >100.5/HARRISON Aspirin (Baby Aspirin) 81 mg PO QDAY [facility] Last Admin: 08/08/17 10:39 Dose: 81 mg Darunavir (Prezista) 800 mg PO QDAY [facility] Last Admin: 08/08/17 10:39 Dose: 800 mg Furosemide (Lasix) 20 mg IV BID@0600,1800 [facility] Last Admin: 08/08/17 06:26 Dose: 20 mg Levofloxacin (Levaquin) 750 mg PO Q24HR [facility] Ondansetron HCl (Zofran) 4 mg IV Q8H PRN PRN Reason: Nausea And Vomiting Sodium Chloride (Sodium Chloride Flush Syringe 10 Ml) 10 ml IV BID [facility] Last Admin: 08/08/17 10:43 Dose: 10 ml Sodium Chloride (Sodium Chloride Flush Syringe 10 Ml) 10 ml IV PRN PRN PRN Reason: LINE FLUSH Warfarin Sodium (Coumadin Pharmacy To Dose) 1 each PO PKCONSULT [facility]; Protocol Warfarin Sodium (Coumadin) 5 mg PO DAILY@1700 [facility] Last Admin: 08/07/17 17:42 Dose: 5 mg Review of Systems ROS unobtainable: due to mental status Physical Examination Vital signs: Vital Signs Temp Pulse Resp BP Pulse Ox 98.2 F 99 H 24 90/59 64 L 08/05/17 23:37 08/05/17 23:37 08/05/17 23:37 08/05/17 23:37 08/05/17 23:37 General appearance: no acute distress, appears uncomfortable, other (morbidly obese) Neck: other (short, large in circumference) Ascultation: Bilateral: diminished breath sounds Percussion: Bilateral: not dull Cardiovascular: regular rate and rhythm Gastrointestinal: other (obese) unable to assess Results - Laboratory Findings CBC and BMP: 08/08/17 06:36 08/08/17 06:36 ABG POC ABG pH 7.520 (7.35-7.45) H 08/08/17 10:06 POC ABG pCO2 59.5 (35-45) H 08/08/17 10:06 POC ABG pO2 59 (80-105) L 08/08/17 10:06 POC ABG HCO3 48.7 08/08/17 10:06 POC ABG Total CO2 > 50 08/08/17 10:06 POC ABG O2 Sat 92 08/08/17 10:06 PT/INR, D-dimer PT 14.8 Sec. (12.2-14.9) 08/08/17 06:36 INR 1.10 (0.87-1.13) 08/08/17 06:36 D-Dimer 765.25 ng/mlDDU (0-234) H 08/06/17 00:21 Abnormal lab findings: Abnormal Labs 08/06/17 08/06/17 08/06/17 00:15 00:21 00:21 WBC RBC Hgb Hct MCH 26 L RDW 18.0 H Lymph % (Auto) [place] % (Auto) Lymph # [place] # Seg Neutrophils % Seg Neuts % (Manual) 84.0 H Lymphocytes % (Manual) 6.0 L Nucleated RBC % 4.0 H Seg Neutrophils # Seg Neutrophils # Man 8.1 H Lymphocytes # (Manual) 0.6 L D-Dimer POC ABG pH POC ABG pCO2 57.0 H POC ABG pO2 41 L Sodium Potassium Chloride 94.5 L Carbon Dioxide 32 H BUN 33 H Creatinine 2.4 H Glucose 128 H 08/06/17 08/07/17 08/07/17 00:21 06:38 06:38 WBC RBC Hgb 10.0 L Hct MCH 26 L RDW 17.5 H Lymph % (Auto) 9.0 L [place] % (Auto) 12.5 H Lymph # 0.8 L [place] # 1.2 H Seg Neutrophils % 78.2 H Seg Neuts % (Manual) Lymphocytes % (Manual) Nucleated RBC % Seg Neutrophils # Seg Neutrophils # Man Lymphocytes # (Manual) D-Dimer 765.25 H POC ABG pH POC ABG pCO2 POC ABG pO2 Sodium Potassium 5.5 H D Chloride Carbon Dioxide 31 H BUN 41 H Creatinine 1.7 H Glucose 08/08/17 08/08/17 08/08/17 06:36 06:36 10:06 WBC 11.2 H RBC 3.47 L Hgb 8.9 L Hct 28.6 L MCH 26 L RDW 17.3 H Lymph % (Auto) 10.2 L [place] % (Auto) 10.9 H Lymph # 1.1 L [place] # 1.2 H Seg Neutrophils % 78.3 H Seg Neuts % (Manual) Lymphocytes % (Manual) Nucleated RBC % Seg Neutrophils # 8.8 H Seg Neutrophils # Man Lymphocytes # (Manual) D-Dimer POC ABG pH 7.520 H POC ABG pCO2 59.5 H POC ABG pO2 59 L Sodium 150 H D Potassium Chloride Carbon Dioxide 41 H* D BUN 32 H Creatinine Glucose 124 H - Diagnostic Findings Chest x-ray: image reviewed (mild cardiomegaly with pulmonary vascular congestion) Assessment and Plan 82 y/o female with HIV, dementia and newly diagnosed pulmonary hypertension with cor pumonale 1. Etiology is likely multifactorial. 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 The patient is not able to give any history to help with diagnosis. She does appear to be volume overloaded and I feel adequate diuresis is the first appropriate step in treating this disease. She is hypoxic based on her ABG from earlier today. We will place patient on nightly bipap starting tonight. Will consider repeat ABG in the am. Agree with HIV therapy. NO definite infiltrate on CXR, if abx therapy is for lungs, would suggest stopping.
[2017-08-09] MEDS: LASIX IV SCH (05:58)
[2017-08-09 07:13] LABS: Hematocrit 24.9 % (30.3-42.9); Hemoglobin 7.9 gm/dl (10.1-14.3); Mean Corpuscular HGB Conc 32 % (30-34); Mean Corpuscular Volume 82 fl (79-97); Platelet Count 175 K/mm3 (140-440); Red Blood Count 3.05 M/mm3 (3.65-5.03); Red Cell Distribution Width 17.2 % (13.2-15.2)
[2017-08-09 07:20] LABS: INR 1.1 (0.87-1.13)
[2017-08-09 07:24] LABS: Mean Corpuscular Hemoglobin 26 pg (28-32)
[2017-08-09] MEDS: BABY ASPIRIN PO SCH (12:11)
[2017-08-09] MEDS: LEVAQUIN PO SCH (12:11)
[2017-08-09] MEDS: TIVICAY (NF) PO SCH (12:11)
[2017-08-09] MEDS: ZIAGEN PO SCH (12:12)
[2017-08-09] MEDS: PREZISTA PO SCH (12:12)
[2017-08-09] MEDS: SODIUM CHLORIDE FLUSH SYRINGE 10 ML IV SCH ×2 (12:13→22:00)
--- NOTE | 2017-08-09 12:29 | Progress Note ---
Assessment and Plan - Patient Problems (1) Cor pulmonale Current Visit: Yes Status: Acute Plan to address problem: Continue optimal medical therapy for chronic cor pulmonale manifested by dilatation of the right heart chambers and moderate severity pulmonary hypertension. (2) Heart failure with preserved ejection fraction Current Visit: Yes Status: Acute Plan to address problem: Continue medical therapy and optimal blood pressure control. (3) Atrial fibrillation Current Visit: Yes Status: Acute Plan to address problem: Coumadin therapy was initiated, but due to the developing anemia, I will place Coumadin and baby aspirin on hold until following optimal GI and hematology evaluation of anemia. Subjective Date of service: 08/09/17 Interval history: Patient is comfortable, no further chest pain, shortness of breath is improved. She is ambulating on the floor with physical therapy. On her laboratory values, there is a progressive developing anemia. Hematocrit was 35 on presentation, currently 24. She is on a baby aspirin and although Coumadin was initiated several days ago, INR is subtherapeutic at 1.1. Objective Vital Signs Temp Pulse Resp BP BP Pulse Ox 08/09/17 09:05 99 08/09/17 08:29 98.7 F 90 28 H 102/49 100 08/09/17 04:56 98.0 F 24 100/57 08/09/17 03:00 115 H 08/08/17 23:30 115 H 27 H 98 08/08/17 21:00 98.5 F 115 H 24 93/54 100 08/08/17 19:54 98.7 F 104 H 24 116/68 99 08/08/17 17:19 98.5 F 129 H 22 128/65 99 08/08/17 12:32 98.3 F 24 124/65 - Physical Examination General: No Apparent Distress HEENT: Positive: PERRL Neck: Positive: neck supple Cardiac: Positive: irregularly irregular Lungs: Positive: Decreased Breath Sounds Neuro: Positive: Grossly Intact Abdomen: Positive: Soft Skin: Positive: Clear Extremities: Present: edema (trace) - Labs and Meds Coagulation 08/09/17 Range/Units 06:07 PT 14.8 (12.2-14.9) Sec. INR 1.10 (0.87-1.13) CBC 08/09/17 Range/Units 06:11 WBC 12.6 H (4.5-11.0) K/mm3 RBC 3.05 L (3.65-5.03) M/mm3 Hgb 7.9 L (10.1-14.3) gm/dl Hct 24.9 L (30.3-42.9) % Plt Count 175 (140-440) K/mm3 - Imaging and Cardiology EKG: image reviewed
--- NOTE | 2017-08-09 14:13 | Progress Note ---
Assessment and Plan 82 y/o female with HIV, dementia and newly diagnosed pulmonary hypertension with cor pumonale 1. Continue PPV, will adjust settings now 2. Continue net negative state daily 3. Wean FiO2 as tolerated 4. if patient does not have PPV at home, suggest asking CM to see if she qualifies for a machine, like a trilogy. 1. Etiology is likely multifactorial. 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 The patient is not able to give any history to help with diagnosis. She does appear to be volume overloaded and I feel adequate diuresis is the first appropriate step in treating this disease. She is hypoxic based on her ABG from earlier today. We will place patient on nightly bipap starting tonight. Will consider repeat ABG in the am. Agree with HIV therapy. NO definite infiltrate on CXR, if abx therapy is for lungs, would suggest stopping. Subjective Date of service: 08/09/17 Interval history: Patient wore PPV last night. ABG this am is likely venous. Patient is stable, down to 3 liters NC. Awake and alert. Appears more comfortable. Objective Vital Signs - 12hr 08/09/17 08/09/17 08/09/17 03:00 04:56 08:29 Temperature 98.0 F 98.7 F Pulse Rate 115 H 90 Respiratory 24 28 H Rate Blood Pressure 100/57 102/49 O2 Sat by Pulse 100 Oximetry 08/09/17 09:05 Temperature Pulse Rate Respiratory Rate Blood Pressure O2 Sat by Pulse 99 Oximetry Constitutional: no acute distress, appears uncomfortable, other (morbidly obese) Neck: other (short, large in circumference) Ascultation: Bilateral: diminished breath sounds Percussion: Bilateral: not dull Cardiovascular: regular rate and rhythm Gastrointestinal: other (obese) Neurologic: unable to assess CBC and BMP: 08/09/17 06:11 08/08/17 06:36 ABG, PT/INR, D-dimer: ABG POC ABG pH 7.625 (7.35-7.45) H 08/09/17 12:46 POC ABG pCO2 45.7 (35-45) H 08/09/17 12:46 POC ABG pO2 30 (80-105) L 08/09/17 12:46 POC ABG HCO3 47.5 08/09/17 12:46 POC ABG Total CO2 49 08/09/17 12:46 POC ABG O2 Sat 69 08/09/17 12:46 PT/INR, D-dimer PT 14.8 Sec. (12.2-14.9) 08/09/17 06:07 INR 1.10 (0.87-1.13) 08/09/17 06:07 D-Dimer 765.25 ng/mlDDU (0-234) H 08/06/17 00:21 Abnormal lab findings: Abnormal Labs 08/06/17 08/06/17 08/06/17 00:15 00:21 00:21 WBC RBC Hgb Hct MCH 26 L RDW 18.0 H Lymph % (Auto) [place] % (Auto) Lymph # [place] # Seg Neutrophils % Seg Neuts % (Manual) 84.0 H Lymphocytes % (Manual) 6.0 L Nucleated RBC % 4.0 H Seg Neutrophils # Seg Neutrophils # Man 8.1 H Lymphocytes # (Manual) 0.6 L D-Dimer POC ABG pH POC ABG pCO2 57.0 H POC ABG pO2 41 L Sodium Potassium Chloride 94.5 L Carbon Dioxide 32 H BUN 33 H Creatinine 2.4 H Glucose 128 H 08/06/17 08/07/17 08/07/17 00:21 06:38 06:38 WBC RBC Hgb 10.0 L Hct MCH 26 L RDW 17.5 H Lymph % (Auto) 9.0 L [place] % (Auto) 12.5 H Lymph # 0.8 L [place] # 1.2 H Seg Neutrophils % 78.2 H Seg Neuts % (Manual) Lymphocytes % (Manual) Nucleated RBC % Seg Neutrophils # Seg Neutrophils # Man Lymphocytes # (Manual) D-Dimer 765.25 H POC ABG pH POC ABG pCO2 POC ABG pO2 Sodium Potassium 5.5 H D Chloride Carbon Dioxide 31 H BUN 41 H Creatinine 1.7 H Glucose 08/08/17 08/08/17 08/08/17 06:36 06:36 10:06 WBC 11.2 H RBC 3.47 L Hgb 8.9 L Hct 28.6 L MCH 26 L RDW 17.3 H Lymph % (Auto) 10.2 L [place] % (Auto) 10.9 H Lymph # 1.1 L [place] # 1.2 H Seg Neutrophils % 78.3 H Seg Neuts % (Manual) Lymphocytes % (Manual) Nucleated RBC % Seg Neutrophils # 8.8 H Seg Neutrophils # Man Lymphocytes # (Manual) D-Dimer POC ABG pH 7.520 H POC ABG pCO2 59.5 H POC ABG pO2 59 L Sodium 150 H D Potassium Chloride Carbon Dioxide 41 H* D BUN 32 H Creatinine Glucose 124 H 08/09/17 08/09/17 06:11 12:46 WBC 12.6 H RBC 3.05 L Hgb 7.9 L Hct 24.9 L MCH 26 L RDW 17.2 H Lymph % (Auto) [place] % (Auto) Lymph # [place] # Seg Neutrophils % Seg Neuts % (Manual) Lymphocytes % (Manual) Nucleated RBC % Seg Neutrophils # Seg Neutrophils # Man Lymphocytes # (Manual) D-Dimer POC ABG pH 7.625 H POC ABG pCO2 45.7 H POC ABG pO2 30 L Sodium Potassium Chloride Carbon Dioxide BUN Creatinine Glucose
--- NOTE | 2017-08-09 14:43 | Gastroenterology Consultation ---
Addendum entered and electronically signed by AMBAR VILLANUEVA COMBINE INSPECTOR 08/09/17 15: 18: Called and spoke with pt's Kristopher Lozano at [phone]. Discussed with him the recommendation for pt to undergo an EGD/colonoscopy to include the nature of the procedure, details of technique, benefits, purpose, and risks including perforation, bleeding, and independent risks of anesthesia. Understanding was voiced and he is in agreement to proceed with procedures. Original Note: <AMBAR VILLANUEVA - Last Filed: 08/09/17 15:02> History of Present Illness - Reason for Consult Consult date: 08/09/17 GI bleed Requesting physician: OMAR LOWE - History of Present Illness Patient is a 82 y/o female with PMH of dementia, HIV/AIDS, and A-Fib who presented to ED with c/o SOB. Chest x-ray showed pulmonary congestion and she was admitted for CHF and TREY. GI has been consulted for a GI bleed with H/H trending down from 10.8/35.1 to now 7.9/24.9. This afternoon patient was resting in bed w/o acute distress with no family at bedside. Alert and oriented to person but noted to be a poor historian. Denies active signs of bleeding such as hematemesis, melena, or hematochezia, however upon rectal exam dark red bloody stool was found. States SOB is now improved. Denies CP, dizziness, wt loss, abd pain, N/V, diarrhea, or constipation. Previous GI history unknown. Past History Past Medical History: HIV/AIDS, hypertension Past Surgical History: Other (unknown) Medications and Allergies Allergies Allergy/AdvReac Type Severity Reaction Status Date / Time No Known Allergies Allergy Verified 08/05/17 23:41 Home Medications Medication Instructions Recorded Confirmed Last Taken Type Unobtainable 08/06/17 08/06/17 Unknown History Active Meds: Active Medications Abacavir Sulfate (Ziagen) 600 mg PO DAILY [facility] Last Admin: 08/09/17 12:12 Dose: 600 mg Acetaminophen (Tylenol) 650 mg PO Q4H PRN PRN Reason: Pain MILD(1-3)/Fever >100.5/HARRISON Darunavir (Prezista) 800 mg PO QDAY [facility] Last Admin: 08/09/17 12:12 Dose: 800 mg Furosemide (Lasix) 20 mg IV BID@0600,1800 [facility] Last Admin: 08/09/17 05:58 Dose: 20 mg Levofloxacin (Levaquin) 750 mg PO Q24HR [facility] Last Admin: 08/09/17 12:11 Dose: 750 mg Ondansetron HCl (Zofran) 4 mg IV Q8H PRN PRN Reason: Nausea And Vomiting Sodium Chloride (Sodium Chloride Flush Syringe 10 Ml) 10 ml IV BID [facility] Last Admin: 08/09/17 12:13 Dose: 10 ml Sodium Chloride (Sodium Chloride Flush Syringe 10 Ml) 10 ml IV PRN PRN PRN Reason: LINE FLUSH Review of Systems - Review of Systems ROS unobtainable: due to mental status Exam - Constitutional Vital Signs: Temp Pulse Resp BP Pulse Ox 98.7 F 90 28 H 102/49 99 08/09/17 08:29 08/09/17 08:29 08/09/17 08:29 08/09/17 08:29 08/09/17 09:05 General appearance: no acute distress - Respiratory Respiratory: bilateral: diminished (anterior) - Cardiovascular Rhythm: irregularly irregular Heart Sounds: Present: S1 & S2 - Gastrointestinal General gastrointestinal: Present: soft, non-tender, normal bowel sounds Rectal Exam: other (dark red bloody stool) - Neurologic Neurological: oriented to person - Labs CBC & Chem 7: 08/09/17 06:11 08/08/17 06:36 Lab Results: Laboratory Results - last 24 hr 08/09/17 08/09/17 08/09/17 06:07 06:11 12:46 WBC 12.6 H RBC 3.05 L Hgb 7.9 L Hct 24.9 L MCV 82 MCH 26 L MCHC 32 RDW 17.2 H Plt Count 175 PT 14.8 INR 1.10 POC ABG pH 7.625 H POC ABG pCO2 45.7 H POC ABG pO2 30 L POC ABG HCO3 47.5 POC ABG Total CO2 49 POC ABG O2 Sat 69 POC ABG Base Excess 26 FiO2 21 Assessment and Plan 1.GI bleed 2.CHF 3.A-fib 4.TREY, CKD? 5.Dementia 6.HIV/AIDS -HGB 7.9-trending down -continue to monitor H/H and transfuse as needed -hold blood thinning medications -rectal exam revealed dark red bloody stool -currently HD stable -etiology unclear -will schedule an EGD/colonoscopy for tomorrow pending family consent -start on PPI -continue supportive care -will follow <CONCHIS PAUL - Last Filed: 08/09/17 16:24> Medications and Allergies Active Meds: Active Medications Abacavir Sulfate (Ziagen) 600 mg PO DAILY [facility] Last Admin: 08/09/17 12:12 Dose: 600 mg Acetaminophen (Tylenol) 650 mg PO Q4H PRN PRN Reason: Pain MILD(1-3)/Fever >100.5/HARRISON Darunavir (Prezista) 800 mg PO QDAY [facility] Last Admin: 08/09/17 12:12 Dose: 800 mg Furosemide (Lasix) 20 mg IV BID@0600,1800 [facility] Last Admin: 08/09/17 05:58 Dose: 20 mg Levofloxacin (Levaquin) 750 mg PO Q24HR [facility] Last Admin: 08/09/17 12:11 Dose: 750 mg Ondansetron HCl (Zofran) 4 mg IV Q8H PRN PRN Reason: Nausea And Vomiting Pantoprazole Sodium (Protonix) 40 mg IV BID [facility] Sodium Chloride (Sodium Chloride Flush Syringe 10 Ml) 10 ml IV BID [facility] Last Admin: 08/09/17 12:13 Dose: 10 ml Sodium Chloride (Sodium Chloride Flush Syringe 10 Ml) 10 ml IV PRN PRN PRN Reason: LINE FLUSH Exam - Constitutional Vital Signs: Temp Pulse Resp BP Pulse Ox 98.7 F 90 28 H 102/49 99 08/09/17 08:29 08/09/17 08:29 08/09/17 08:29 08/09/17 08:29 08/09/17 09:05 - Labs CBC & Chem 7: 08/09/17 06:11 08/08/17 06:36 Lab Results: Laboratory Results - last 24 hr 08/09/17 08/09/17 08/09/17 06:07 06:11 12:46 WBC 12.6 H RBC 3.05 L Hgb 7.9 L Hct 24.9 L MCV 82 MCH 26 L MCHC 32 RDW 17.2 H Plt Count 175 PT 14.8 INR 1.10 POC ABG pH 7.625 H POC ABG pCO2 45.7 H POC ABG pO2 30 L POC ABG HCO3 47.5 POC ABG Total CO2 49 POC ABG O2 Sat 69 POC ABG Base Excess 26 FiO2 21 Assessment and Plan Pt seen and examined. Plan as noted.
[2017-08-09] MEDS ORDERED: GOLYTELY PO ONE (15:16)
--- NOTE | 2017-08-09 16:33 | Progress Note ---
Assessment and Plan Assessment and plan: 82 year old -[place] female with medical history significant for dementia, HIV/AIDS, A. fib on anticoagulation was brought to the emergency department for the complains of shortness of breath. In the emergency department chest x-ray was done and showed pulmonary congestion, elevated creatinine Congestive heart failure - Diastolic CHF - Patient is on IV Lasix - Blood pressure is marginal and couldn't tolerate any other blood pressure medication Cor pulmonale - Pulmonary consulted Atrial fibrillation - Held Coumadin because of A. fib TREY - Resolved Hyperkalemia - Kayexalate - We'll check BMP in the morning Dementia - supportive care HIV/AIDS - Restart home medication GI bleed - Gl was consulted and they going to do EGD and colonoscopy tomorrow - Follow H/H DVT prophylaxis - SCDs because of GI bleed Disposition -Continue inpatient care History Interval history: Patient has rectal bleed overnight. Patient has severe dementia and she can't state her name. Hospitalist Physical - Physical exam Narrative exam: Not in cardiopulmonary distress. The patient is morbidly obese. Vital signs as documented. Head exam is unremarkable. No scleral icterus . Neck is without jugular venous distension, thyromegaly, or carotid bruits. Lungs are clear to auscultation. Cardiac exam reveals irregular rate and Rhythm. Abdominal exam reveals normal bowel sounds. Extremities are nonedematous and both femoral and pedal pulses are normal. STEERER: Alert and not oriented. No focal weakness. - Constitutional Vitals: Temp Pulse Resp BP Pulse Ox 98.7 F 90 28 H 102/49 99 08/09/17 08:29 08/09/17 08:29 08/09/17 08:29 08/09/17 08:29 08/09/17 09:05 General appearance: Present: no acute distress Results - Labs CBC & Chem 7: 08/09/17 06:11 08/08/17 06:36 Labs: Laboratory Last Values WBC 12.6 K/mm3 (4.5-11.0) H 08/09/17 06:11 RBC 3.05 M/mm3 (3.65-5.03) L 08/09/17 06:11 Hgb 7.9 gm/dl (10.1-14.3) L 08/09/17 06:11 Hct 24.9 % (30.3-42.9) L 08/09/17 06:11 MCV 82 fl (79-97) 08/09/17 06:11 MCH 26 pg (28-32) L 08/09/17 06:11 MCHC 32 % (30-34) 08/09/17 06:11 RDW 17.2 % (13.2-15.2) H 08/09/17 06:11 Plt Count 175 K/mm3 (140-440) 08/09/17 06:11 Lymph % (Auto) 10.2 % (13.4-35.0) L 08/08/17 06:36 [place] % (Auto) 10.9 % (0.0-7.3) H 08/08/17 06:36 Eos % (Auto) 0.0 % (0.0-4.3) 08/08/17 06:36 Baso % (Auto) 0.6 % (0.0-1.8) 08/08/17 06:36 Lymph # 1.1 K/mm3 (1.2-5.4) L 08/08/17 06:36 [place] # 1.2 K/mm3 (0.0-0.8) H 08/08/17 06:36 Eos # 0.0 K/mm3 (0.0-0.4) 08/08/17 06:36 Baso # 0.1 K/mm3 (0.0-0.1) 08/08/17 06:36 Add Manual Diff Complete 08/06/17 00:21 Total Counted 100 08/06/17 00:21 Seg Neutrophils % 78.3 % (40.0-70.0) H 08/08/17 06:36 Seg Neuts % (Manual) 84.0 % (40.0-70.0) H 08/06/17 00:21 Band Neutrophils % 2.0 % 08/06/17 00:21 Lymphocytes % (Manual) 6.0 % (13.4-35.0) L 08/06/17 00:21 Reactive Lymphs % (Man) 0 % 08/06/17 00:21 Monocytes % (Manual) 7.0 % (0.0-7.3) 08/06/17 00:21 Eosinophils % (Manual) 0 % (0.0-4.3) 08/06/17 00:21 Basophils % (Manual) 0 % (0.0-1.8) 08/06/17 00:21 Metamyelocytes % 0 % 08/06/17 00:21 Myelocytes % 1.0 % 08/06/17 00:21 Promyelocytes % 0 % 08/06/17 00:21 Blast Cells % 0 % 08/06/17 00:21 Nucleated RBC % 4.0 % (0.0-0.9) H 08/06/17 00:21 Seg Neutrophils # 8.8 K/mm3 (1.8-7.7) H 08/08/17 06:36 Seg Neutrophils # Man 8.1 K/mm3 (1.8-7.7) H 08/06/17 00:21 Band Neutrophils # 0.2 K/mm3 08/06/17 00:21 Lymphocytes # (Manual) 0.6 K/mm3 (1.2-5.4) L 08/06/17 00:21 Abs React Lymphs (Man) 0.0 K/mm3 08/06/17 00:21 Monocytes # (Manual) 0.7 K/mm3 (0.0-0.8) 08/06/17 00:21 Eosinophils # (Manual) 0.0 K/mm3 (0.0-0.4) 08/06/17 00:21 Basophils # (Manual) 0.0 K/mm3 (0.0-0.1) 08/06/17 00:21 Metamyelocytes # 0.0 K/mm3 08/06/17 00:21 Myelocytes # 0.1 K/mm3 08/06/17 00:21 Promyelocytes # 0.0 K/mm3 08/06/17 00:21 Blast Cells # 0.0 K/mm3 08/06/17 00:21 WBC Morphology Not Reportable 08/06/17 00:21 Hypersegmented Neuts Not Reportable 08/06/17 00:21 Hyposegmented Neuts Not Reportable 08/06/17 00:21 Hypogranular Neuts Not Reportable 08/06/17 00:21 Smudge Cells Not Reportable 08/06/17 00:21 Toxic Granulation Not Reportable 08/06/17 00:21 Toxic Vacuolation Not Reportable 08/06/17 00:21 Dohle Bodies Not Reportable 08/06/17 00:21 Pelger-Huet Anomaly Not Reportable 08/06/17 00:21 [place] Rods Not Reportable 08/06/17 00:21 Platelet Estimate Consistent w auto 08/06/17 00:21 Clumped Platelets Not Reportable 08/06/17 00:21 Plt Clumps, EDTA Not Reportable 08/06/17 00:21 Large Platelets Not Reportable 08/06/17 00:21 Giant Platelets Not Reportable 08/06/17 00:21 Platelet Satelliting Not Reportable 08/06/17 00:21 Plt Morphology Comment Not Reportable 08/06/17 00:21 RBC Morphology Not Reportable 08/06/17 00:21 Dimorphic RBCs Not Reportable 08/06/17 00:21 Polychromasia Not Reportable 08/06/17 00:21 Hypochromasia 1+ 08/06/17 00:21 Poikilocytosis Not Reportable 08/06/17 00:21 Anisocytosis Not Reportable 08/06/17 00:21 Microcytosis Not Reportable 08/06/17 00:21 Macrocytosis Not Reportable 08/06/17 00:21 Spherocytes Not Reportable 08/06/17 00:21 Pappenheimer Bodies Not Reportable 08/06/17 00:21 Sickle Cells Not Reportable 08/06/17 00:21 Target Cells Few 08/06/17 00:21 Tear Drop Cells Not Reportable 08/06/17 00:21 Ovalocytes Not Reportable 08/06/17 00:21 Helmet Cells Not Reportable 08/06/17 00:21 Cheek-[place] Bodies Not Reportable 08/06/17 00:21 [place] Rings Not Reportable 08/06/17 00:21 [place] Cells Not Reportable 08/06/17 00:21 Bite Cells Not Reportable 08/06/17 00:21 Crenated Cell Not Reportable 08/06/17 00:21 Elliptocytes Not Reportable 08/06/17 00:21 Acanthocytes (Spur) Not Reportable 08/06/17 00:21 Rouleaux Not Reportable 08/06/17 00:21 Hemoglobin C Crystals Not Reportable 08/06/17 00:21 Schistocytes Not Reportable 08/06/17 00:21 Malaria parasites Not Reportable 08/06/17 00:21 Carlo Bodies Not Reportable 08/06/17 00:21 Hem Pathologist Commnt No 08/06/17 00:21 PT 14.8 Sec. (12.2-14.9) 08/09/17 06:07 INR 1.10 (0.87-1.13) 08/09/17 06:07 APTT 24.2 Sec. (24.2-36.6) 08/06/17 00:21 D-Dimer 765.25 ng/mlDDU (0-234) H 08/06/17 00:21 POC ABG pH 7.625 (7.35-7.45) H 08/09/17 12:46 POC ABG pCO2 45.7 (35-45) H 08/09/17 12:46 POC ABG pO2 30 (80-105) L 08/09/17 12:46 POC ABG HCO3 47.5 08/09/17 12:46 POC ABG Total CO2 49 08/09/17 12:46 POC ABG O2 Sat 69 08/09/17 12:46 POC ABG Base Excess 26 08/09/17 12:46 FiO2 21 % 08/09/17 12:46 Sodium 150 mmol/L (137-145) H D 08/08/17 06:36 Potassium 4.0 mmol/L (3.6-5.0) D 08/08/17 06:36 Chloride 100.6 mmol/L (98-107) 08/08/17 06:36 Carbon Dioxide 41 mmol/L (22-30) H* D 08/08/17 06:36 Anion Gap 12 mmol/L 08/08/17 06:36 BUN 32 mg/dL (7-17) H 08/08/17 06:36 Creatinine 1.0 mg/dL (0.7-1.2) 08/08/17 06:36 Estimated GFR > 60 ml/min 08/08/17 06:36 BUN/Creatinine Ratio 32 % 08/08/17 06:36 Glucose 124 mg/dL (65-100) H 08/08/17 06:36 Calcium 8.5 mg/dL (8.4-10.2) 08/08/17 06:36 Total Creatine Kinase 37 units/L (30-135) 08/06/17 12:45 CK-MB (CK-2) < 1.0 ng/mL (0.0-4.0) 08/06/17 12:45 CK-MB (CK-2) Rel Index 2.7 (0-4) 08/06/17 12:45 Troponin T < 0.010 ng/mL (0.00-0.029) 08/06/17 12:45
[2017-08-09 17:00] LABS: Hematocrit 23.3 % (30.3-42.9); Hemoglobin 7.5 gm/dl (10.1-14.3); Lymphocytes # (Auto) 1.1 K/mm3 (1.2-5.4); Lymphocytes % (Auto) 8.8 % (13.4-35.0); Mean Corpuscular HGB Conc 32 % (30-34); Mean Corpuscular Hemoglobin 26 pg (28-32); Mean Corpuscular Volume 81 fl (79-97); Monocytes # (Auto) 1.8 K/mm3 (0.0-0.8); Monocytes % (Auto) 14.9 % (0.0-7.3); Platelet Count 165 K/mm3 (140-440); Red Blood Count 2.88 M/mm3 (3.65-5.03); Red Cell Distribution Width 17.5 % (13.2-15.2)
[2017-08-09] MEDS ORDERED: NACL 0.9% 500 ML 500 ML IV ONE (17:04)
[2017-08-09 17:12] LABS: BUN/Creatinine Ratio 33; Blood Urea Nitrogen 33 mg/dL (7-17); Calcium 8.5 mg/dL (8.4-10.2); Hemolysis Index 9
[2017-08-10] MEDS ORDERED: NACL 0.9% 500 ML 500 ML IV ONE (01:15)
[2017-08-10 01:28] LABS: Hematocrit 21.7 % (30.3-42.9); Hemoglobin 6.9 gm/dl (10.1-14.3)
[2017-08-10] MEDS: PROTONIX IV SCH ×3 (02:18→20:17)
[2017-08-10] MEDS: LASIX IV SCH ×3 (06:28→20:19)
[2017-08-10] MEDS ORDERED: NACL 0.9% 500 ML 500 ML IV NR (07:56)
[2017-08-10] MEDS ORDERED: D5W 1,000 ML IV SCH (08:00)
[2017-08-10 08:14] LABS: Basophils % (Auto) 0.2 % (0.0-1.8); Eosinophils % (Auto) 0.2 % (0.0-4.3); Hematocrit 25.8 % (30.3-42.9); Hemoglobin 8.2 gm/dl (10.1-14.3); Lymphocytes # (Auto) 1.5 K/mm3 (1.2-5.4); Mean Corpuscular HGB Conc 32 % (30-34); Mean Corpuscular Hemoglobin 26 pg (28-32); Mean Corpuscular Volume 82 fl (79-97); Monocytes # (Auto) 1.2 K/mm3 (0.0-0.8); Monocytes % (Auto) 11.8 % (0.0-7.3); Platelet Count 151 K/mm3 (140-440); Red Blood Count 3.14 M/mm3 (3.65-5.03); Red Cell Distribution Width 17.1 % (13.2-15.2)
[2017-08-10 08:26] LABS: INR 1.12 (0.87-1.13)
[2017-08-10 08:33] LABS: BUN/Creatinine Ratio 23; Blood Urea Nitrogen 21 mg/dL (7-17); Calcium 8.1 mg/dL (8.4-10.2); Hemolysis Index 32
--- NOTE | 2017-08-10 11:57 | Progress Note ---
Assessment and Plan Pulmonary edema ventilation perfusion study of the lungs was negative for pulmonary embolism. Chronic Atrial fibrillation, rate control Warfarin discontinued due to anemia and dropping Hb Cor-pulmonale Obesity hypoventilation syndrome/LINDA Anemia, new onset s/p PRBC transfusion Acute renal failure - resolved Hx of HIV infection Echocardiogram shows severe dilatation of the right heart chambers, moderate tricuspid regurgitation, and moderate pulmonary hypertension with pulmonary artery systolic pressures of 55 mmHg. Findings are consistent with chronic cor pulmonale. In addition to right heart findings, there is marked dilatation of the left atrium. There is at least mild to moderate mitral regurgitation. Left ventricular chamber size and systolic function are normal with an ejection fraction of 55%. Recommendations: Agree with GI work-up for acute drop in H/H Agree with blood transfusion Continue to hold OAC Start low dose metoprolol for rate control Subjective Date of service: 08/10/17 Principal diagnosis: CHF Interval history: Patient denies chest pain or shortness of breath Tele is showing rate controlled afib Objective Vital Signs Temp Pulse Pulse Resp BP Pulse Ox 08/10/17 10:00 97 08/10/17 08:16 98.1 F 88 16 118/60 98 08/10/17 04:25 98.1 F 82 18 115/65 08/10/17 03:55 98.4 F 86 20 112/54 98 08/10/17 03:25 98.0 F 100 H 20 122/57 99 08/10/17 02:55 98.7 F 90 18 105/50 98 08/10/17 02:25 98.7 F 90 18 98/50 98 08/10/17 02:10 98.4 F 92 H 18 110/70 98 08/10/17 00:31 99.0 F 117 H 20 126/58 95 08/09/17 22:00 78 20 97 08/09/17 20:13 98.9 F 112 H 20 90/40 100 08/09/17 17:58 98.2 F 89 22 94/54 97 08/09/17 13:12 98.0 F 103 H 24 95/49 100 - Physical Examination General: No Apparent Distress HEENT: Positive: PERRL Neck: Positive: neck supple Cardiac: Positive: irregularly irregular Lungs: Positive: Decreased Breath Sounds Neuro: Positive: Grossly Intact Abdomen: Positive: Soft Skin: Positive: Clear Extremities: Present: edema (trace) - Labs and Meds Coagulation 08/10/17 Range/Units 07:02 PT 15.0 H (12.2-14.9) Sec. INR 1.12 (0.87-1.13) CBC 08/09/17 08/10/17 08/10/17 Range/Units 16:32 01:00 07:02 WBC 12.0 H 10.5 (4.5-11.0) K/mm3 RBC 2.88 L 3.14 L (3.65-5.03) M/mm3 Hgb 7.5 L 6.9 L 8.2 L (10.1-14.3) gm/dl Hct 23.3 L 21.7 L 25.8 L (30.3-42.9) % Plt Count 165 151 (140-440) K/mm3 Lymph # 1.1 L 1.5 (1.2-5.4) K/mm3 [place] # 1.8 H 1.2 H (0.0-0.8) K/mm3 Eos # 0.0 0.0 (0.0-0.4) K/mm3 Baso # 0.0 0.0 (0.0-0.1) K/mm3 Comprehensive Metabolic Panel 08/09/17 08/10/17 Range/Units 16:32 07:02 Sodium 153 H 152 H (137-145) mmol/L Potassium 4.2 3.5 L (3.6-5.0) mmol/L Chloride 102.3 100.6 (98-107) mmol/L Carbon Dioxide 45 H* 44 H* (22-30) mmol/L BUN 33 H 21 H (7-17) mg/dL Creatinine 1.0 0.9 (0.7-1.2) mg/dL Glucose 109 H 111 H (65-100) mg/dL Calcium 8.5 8.1 L (8.4-10.2) mg/dL - Imaging and Cardiology EKG: image reviewed
[2017-08-10] MEDS ORDERED: WATER FOR IRRIG STERILE IR ONE (12:59)
--- NOTE | 2017-08-10 12:59 | Anesthesia Consultation ---
Anesthesia Consult and Med Hx - Cardiovascular System Hx Hypertension: Yes
[2017-08-10] MEDS ORDERED: XYLOCAINE MPF 2% ONE (13:00)
[2017-08-10] MEDS ORDERED: WATER FOR IRRIG STERILE ONE (13:00)
[2017-08-10] MEDS ORDERED: NACL 0.9% 1000 ML 1,000 ML ONE (13:03)
--- NOTE | 2017-08-10 13:07 | Anesthesia Consultation ---
Anesthesia Consult and Med Hx Date of service: 08/10/17 - Airway Anesthetic Teeth Evaluation: Dentures Mental/Hyoid Distance: Inadequate Mallampati Class: Class III Intubation Access Assessment: Possibly Difficult - Pulmonary Exam CTA: Yes (diminished, essentially clear) - Cardiac Exam Anesthetic Concerns: S1S2, irregular - Pre-Operative Health Status ASA Pre-Surgery Classification: ASA4 Proposed Anesthetic Plan: MAC - Pulmonary Hx Smoking: No Hx Asthma: No Hx Respiratory Symptoms: Yes (pulmonary hypertension) SOB: Yes (admitted w/ SOB, hypoxia) COPD: No Home Oxygen Therapy: No Hx Pneumonia: No Hx Sleep Apnea: No - Cardiovascular System Hx Hypertension: Yes Hx Coronary Artery Disease: No Hx Heart Attack/AMI: No Hx Angina: No Hx Percutaneous Transluminal Coronary Angioplasty (PTCA): No Hx Cardia Arrhythmia: Yes (A-fib; CHF; cor pulmonale) Hx Pacemaker: No Hx Internal Defibrillator: No Hx Valvular Heart Disease: Yes (mild- mod MR, mod TR; EF 50-55%) Hx Heart Murmur: No Hx Peripheral Vascular Disease: No - Central Nervous System Hx Neuromuscular Disorder: No Hx Seizures: No CVA: No Hx Back Pain: No Hx Psychiatric Problems: No - Gastrointestinal Hx Ulcer: No Hx Gastroesophageal Reflux Disease: No - Endocrine Hx Renal Disease: Yes (Renal Insufficiency) Hx End Stage Renal Disease: No Hx Cirrhosis: No Hx Liver Disease: No Hx Insulin Dependent Diabetes: No Hx Non-Insulin Dependent Diabetes: No Hx Thyroid Disease: No Hx Hypothyroidism: No Hx Hyperthyroidism: No - Hematic Hx Anemia: No Hx Sickle Cell Disease: No - Other Systems Hx Alcohol Use: No Hx Substance Use: No Hx Cancer: No Hx Obesity: No
[2017-08-10] MEDS ORDERED: DIPRIVAN 10 MG/ML IV ONE ×2 (13:08)
--- NOTE | 2017-08-10 13:53 | Progress Note ---
Assessment and Plan 82 y/o female with HIV, dementia and newly diagnosed pulmonary hypertension with cor pumonale 1. Continue PPV at night. Can use PRN if needed 2. Continue net negative state daily 3. Wean FiO2 as tolerated 4. if patient does not have PPV at home, suggest asking CM to see if she qualifies for a machine, like a trilogy. 1. Etiology is likely multifactorial. 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 The patient is not able to give any history to help with diagnosis. She does appear to be volume overloaded and I feel adequate diuresis is the first appropriate step in treating this disease. She is hypoxic based on her ABG from earlier today. We will place patient on nightly bipap starting tonight. Will consider repeat ABG in the am. Agree with HIV therapy. NO definite infiltrate on CXR, if abx therapy is for lungs, would suggest stopping. Subjective Date of service: 08/10/17 Principal diagnosis: CHF Interval history: Had an acute drop in H/H Objective Vital Signs - 12hr 08/10/17 08/10/17 08/10/17 02:10 02:25 02:55 Temperature 98.4 F 98.7 F 98.7 F Pulse Rate 92 H 90 90 Respiratory 18 18 18 Rate Blood Pressure 110/70 98/50 105/50 O2 Sat by Pulse 98 98 98 Oximetry 08/10/17 08/10/17 08/10/17 03:25 03:55 04:25 Temperature 98.0 F 98.4 F 98.1 F Pulse Rate 100 H 86 82 Respiratory 20 20 18 Rate Blood Pressure 122/57 112/54 115/65 O2 Sat by Pulse 99 98 Oximetry 08/10/17 08/10/17 08/10/17 08:16 10:00 12:26 Temperature 98.1 F Pulse Rate 88 89 Respiratory 16 91 H Rate Blood Pressure 118/60 110/64 O2 Sat by Pulse 98 97 96 Oximetry Constitutional: no acute distress, appears uncomfortable, other (morbidly obese) Neck: other (short, large in circumference) Ascultation: Bilateral: diminished breath sounds Percussion: Bilateral: not dull Cardiovascular: regular rate and rhythm Gastrointestinal: other (obese) Neurologic: unable to assess CBC and BMP: 08/10/17 07:02 08/10/17 07:02 ABG, PT/INR, D-dimer: ABG POC ABG pH 7.625 (7.35-7.45) H 08/09/17 12:46 POC ABG pCO2 45.7 (35-45) H 08/09/17 12:46 POC ABG pO2 30 (80-105) L 08/09/17 12:46 POC ABG HCO3 47.5 08/09/17 12:46 POC ABG Total CO2 49 08/09/17 12:46 POC ABG O2 Sat 69 08/09/17 12:46 PT/INR, D-dimer PT 15.0 Sec. (12.2-14.9) H 08/10/17 07:02 INR 1.12 (0.87-1.13) 08/10/17 07:02 D-Dimer 765.25 ng/mlDDU (0-234) H 08/06/17 00:21 Abnormal lab findings: Abnormal Labs 08/06/17 08/06/17 08/06/17 00:15 00:21 00:21 WBC RBC Hgb Hct MCH 26 L RDW 18.0 H Lymph % (Auto) [place] % (Auto) Lymph # [place] # Seg Neutrophils % Seg Neuts % (Manual) 84.0 H Lymphocytes % (Manual) 6.0 L Nucleated RBC % 4.0 H Seg Neutrophils # Seg Neutrophils # Man 8.1 H Lymphocytes # (Manual) 0.6 L PT D-Dimer POC ABG pH POC ABG pCO2 57.0 H POC ABG pO2 41 L Sodium Potassium Chloride 94.5 L Carbon Dioxide 32 H BUN 33 H Creatinine 2.4 H Glucose 128 H Calcium Crossmatch 08/06/17 08/07/17 08/07/17 00:21 06:38 06:38 WBC RBC Hgb 10.0 L Hct MCH 26 L RDW 17.5 H Lymph % (Auto) 9.0 L [place] % (Auto) 12.5 H Lymph # 0.8 L [place] # 1.2 H Seg Neutrophils % 78.2 H Seg Neuts % (Manual) Lymphocytes % (Manual) Nucleated RBC % Seg Neutrophils # Seg Neutrophils # Man Lymphocytes # (Manual) PT D-Dimer 765.25 H POC ABG pH POC ABG pCO2 POC ABG pO2 Sodium Potassium 5.5 H D Chloride Carbon Dioxide 31 H BUN 41 H Creatinine 1.7 H Glucose Calcium Crossmatch 08/08/17 08/08/17 08/08/17 06:36 06:36 10:06 WBC 11.2 H RBC 3.47 L Hgb 8.9 L Hct 28.6 L MCH 26 L RDW 17.3 H Lymph % (Auto) 10.2 L [place] % (Auto) 10.9 H Lymph # 1.1 L [place] # 1.2 H Seg Neutrophils % 78.3 H Seg Neuts % (Manual) Lymphocytes % (Manual) Nucleated RBC % Seg Neutrophils # 8.8 H Seg Neutrophils # Man Lymphocytes # (Manual) PT D-Dimer POC ABG pH 7.520 H POC ABG pCO2 59.5 H POC ABG pO2 59 L Sodium 150 H D Potassium Chloride Carbon Dioxide 41 H* D BUN 32 H Creatinine Glucose 124 H Calcium Crossmatch 08/09/17 08/09/17 08/09/17 06:11 12:46 16:32 WBC 12.6 H 12.0 H RBC 3.05 L 2.88 L Hgb 7.9 L 7.5 L Hct 24.9 L 23.3 L MCH 26 L 26 L RDW 17.2 H 17.5 H Lymph % (Auto) 8.8 L [place] % (Auto) 14.9 H Lymph # 1.1 L [place] # 1.8 H Seg Neutrophils % 76.3 H Seg Neuts % (Manual) Lymphocytes % (Manual) Nucleated RBC % Seg Neutrophils # 9.1 H Seg Neutrophils # Man Lymphocytes # (Manual) PT D-Dimer POC ABG pH 7.625 H POC ABG pCO2 45.7 H POC ABG pO2 30 L Sodium Potassium Chloride Carbon Dioxide BUN Creatinine Glucose Calcium Crossmatch 08/09/17 08/09/17 08/10/17 16:32 19:52 01:00 WBC RBC Hgb 6.9 L Hct 21.7 L MCH RDW Lymph % (Auto) [place] % (Auto) Lymph # [place] # Seg Neutrophils % Seg Neuts % (Manual) Lymphocytes % (Manual) Nucleated RBC % Seg Neutrophils # Seg Neutrophils # Man Lymphocytes # (Manual) PT D-Dimer POC ABG pH POC ABG pCO2 POC ABG pO2 Sodium 153 H Potassium Chloride Carbon Dioxide 45 H* BUN 33 H Creatinine Glucose 109 H Calcium Crossmatch See Detail 08/10/17 08/10/17 08/10/17 07:02 07:02 07:02 WBC RBC 3.14 L Hgb 8.2 L Hct 25.8 L MCH 26 L RDW 17.1 H Lymph % (Auto) [place] % (Auto) 11.8 H Lymph # [place] # 1.2 H Seg Neutrophils % 73.8 H Seg Neuts % (Manual) Lymphocytes % (Manual) Nucleated RBC % Seg Neutrophils # Seg Neutrophils # Man Lymphocytes # (Manual) PT 15.0 H D-Dimer POC ABG pH POC ABG pCO2 POC ABG pO2 Sodium 152 H Potassium 3.5 L Chloride Carbon Dioxide 44 H* BUN 21 H Creatinine Glucose 111 H Calcium 8.1 L Crossmatch
--- NOTE | 2017-08-10 13:53 | Post Operative Note ---
Pre-op diagnosis: GI bleed Post-op diagnosis: other (2 large deep duodenal bulb ulcers) Findings: 1. 2 deep 2-3 cm ulcers in duodenal bulb, one with red spot stigmata, no amenable to clipping due to fibrotic base. No active bleeding. 2. Otherwise normal EGD. Procedure: EGD Anesthesia: MAC Surgeon: CONCHIS PAUL Estimated blood loss: none Pathology: none Condition: stable Disposition: floor (Colonoscopy not done due to findings above. Needs to be on PPI drip.)
--- NOTE | 2017-08-10 14:26 | Post Anesthesia Evaluation ---
- Post Anesthesia Evaluation Patient Participated: Yes Airway Patent: Yes Stable Respiratory Function: Yes Nausea/Vomiting: No Temp > 96.8F: Yes Pain Manageable: Yes Adequeate Hydration: Yes Anesthesia Complications: No
--- NOTE | 2017-08-10 15:16 | Operative Report ---
PROCEDURE: Upper endoscopy. PREOPERATIVE DIAGNOSIS: Gastrointestinal bleed. POSTOPERATIVE DIAGNOSIS: Duodenal bulb ulcers. SEDATION: MAC by Anesthesia. HISTORY: The patient is an 82-year-old woman who presents with GI bleed. She has had a hemoglobin that has been dropping slowly. She initially came in with shortness of breath. Procedure, indications, risks, and benefits were explained and consent was obtained from the patient's family by phone. The patient was placed in left lateral decubitus position and sedated. [place] video upper endoscope was passed through the mouth and oropharynx into the descending duodenum. Scope was then gradually withdrawn with close inspection of the mucosa. FINDINGS: 1. Normal appearing esophagus. 2. Normal appearing gastric antrum, fundus, body, and cardia. 3. Two large deep duodenal bulb ulcers noted on either side of the lumen. These measured 2-3 cm in diameter and were deep and excavated with a white fibrotic base. One of them had a red spot stigmata suggestive of a bleeding source. There was no active bleeding noted. 4. Remainder of duodenum was normal appearing. The patient tolerated the procedure well without immediate complication. IMPRESSION: Two deep duodenal bulb ulcers -- likely source of bleeding with stigmata on one of them. They were not actively bleeding. PLAN: 1. IV Protonix drip. 2. Monitor H and H and transfuse as needed. 3. Because of the above findings, a colonoscopy was not performed. JOB# [id number] [facility]
--- NOTE | 2017-08-10 16:01 | Progress Note ---
Assessment and Plan Assessment and plan: 82 year old -[place] female with medical history significant for dementia, HIV/AIDS, A. fib on anticoagulation was brought to the emergency department for the complains of shortness of breath. In the emergency department chest x-ray was done and showed pulmonary congestion, elevated creatinine Congestive heart failure - Diastolic CHF - Patient is on IV Lasix - Blood pressure is marginal and couldn't tolerate any other blood pressure medication Cor pulmonale - Pulmonary consulted Atrial fibrillation - Held Coumadin because of GI bleed TREY - Resolved Hypokalemia - will replace and check in the morning Dementia - supportive care HIV/AIDS - Restart home medication GI bleed - Gl was consulted and they did EGD and showed 2 deep ulcers with fibrous base, no active bleeding - ON Pantoprazole drip - NPO, will start with clear liquid diet in the morning DVT prophylaxis - SCDs because of GI bleed Disposition -Continue inpatient care History Interval history: Patient has severe dementia and she she answer yes to every question. The shunt was transfused with packed RBC overnight. Hospitalist Physical - Physical exam Narrative exam: Not in cardiopulmonary distress. The patient is morbidly obese. Vital signs as documented. Head exam is unremarkable. No scleral icterus . Neck is without jugular venous distension, thyromegaly, or carotid bruits. Lungs are clear to auscultation. Cardiac exam reveals irregular rate and Rhythm. Abdominal exam reveals normal bowel sounds. Extremities are nonedematous and both femoral and pedal pulses are normal. 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 No focal weakness. - Constitutional Vitals: Temp Pulse Resp BP Pulse Ox 98.8 F 91 H 25 H 115/61 94 08/10/17 12:45 08/10/17 12:45 08/10/17 12:45 08/10/17 12:45 08/10/17 12:45 General appearance: Present: no acute distress Results - Labs CBC & Chem 7: 08/10/17 07:02 08/10/17 07:02 Labs: Laboratory Last Values WBC 10.5 K/mm3 (4.5-11.0) 08/10/17 07:02 RBC 3.14 M/mm3 (3.65-5.03) L 08/10/17 07:02 Hgb 8.2 gm/dl (10.1-14.3) L 08/10/17 07:02 Hct 25.8 % (30.3-42.9) L 08/10/17 07:02 MCV 82 fl (79-97) 08/10/17 07:02 MCH 26 pg (28-32) L 08/10/17 07:02 MCHC 32 % (30-34) 08/10/17 07:02 RDW 17.1 % (13.2-15.2) H 08/10/17 07:02 Plt Count 151 K/mm3 (140-440) 08/10/17 07:02 Lymph % (Auto) 14.0 % (13.4-35.0) 08/10/17 07:02 [place] % (Auto) 11.8 % (0.0-7.3) H 08/10/17 07:02 Eos % (Auto) 0.2 % (0.0-4.3) 08/10/17 07:02 Baso % (Auto) 0.2 % (0.0-1.8) 08/10/17 07:02 Lymph # 1.5 K/mm3 (1.2-5.4) 08/10/17 07:02 [place] # 1.2 K/mm3 (0.0-0.8) H 08/10/17 07:02 Eos # 0.0 K/mm3 (0.0-0.4) 08/10/17 07:02 Baso # 0.0 K/mm3 (0.0-0.1) 08/10/17 07:02 Add Manual Diff Complete 08/06/17 00:21 Total Counted 100 08/06/17 00:21 Seg Neutrophils % 73.8 % (40.0-70.0) H 08/10/17 07:02 Seg Neuts % (Manual) 84.0 % (40.0-70.0) H 08/06/17 00:21 Band Neutrophils % 2.0 % 08/06/17 00:21 Lymphocytes % (Manual) 6.0 % (13.4-35.0) L 08/06/17 00:21 Reactive Lymphs % (Man) 0 % 08/06/17 00:21 Monocytes % (Manual) 7.0 % (0.0-7.3) 08/06/17 00:21 Eosinophils % (Manual) 0 % (0.0-4.3) 08/06/17 00:21 Basophils % (Manual) 0 % (0.0-1.8) 08/06/17 00:21 Metamyelocytes % 0 % 08/06/17 00:21 Myelocytes % 1.0 % 08/06/17 00:21 Promyelocytes % 0 % 08/06/17 00:21 Blast Cells % 0 % 08/06/17 00:21 Nucleated RBC % 4.0 % (0.0-0.9) H 08/06/17 00:21 Seg Neutrophils # 7.7 K/mm3 (1.8-7.7) 08/10/17 07:02 Seg Neutrophils # Man 8.1 K/mm3 (1.8-7.7) H 08/06/17 00:21 Band Neutrophils # 0.2 K/mm3 08/06/17 00:21 Lymphocytes # (Manual) 0.6 K/mm3 (1.2-5.4) L 08/06/17 00:21 Abs React Lymphs (Man) 0.0 K/mm3 08/06/17 00:21 Monocytes # (Manual) 0.7 K/mm3 (0.0-0.8) 08/06/17 00:21 Eosinophils # (Manual) 0.0 K/mm3 (0.0-0.4) 08/06/17 00:21 Basophils # (Manual) 0.0 K/mm3 (0.0-0.1) 08/06/17 00:21 Metamyelocytes # 0.0 K/mm3 08/06/17 00:21 Myelocytes # 0.1 K/mm3 08/06/17 00:21 Promyelocytes # 0.0 K/mm3 08/06/17 00:21 Blast Cells # 0.0 K/mm3 08/06/17 00:21 WBC Morphology Not Reportable 08/06/17 00:21 Hypersegmented Neuts Not Reportable 08/06/17 00:21 Hyposegmented Neuts Not Reportable 08/06/17 00:21 Hypogranular Neuts Not Reportable 08/06/17 00:21 Smudge Cells Not Reportable 08/06/17 00:21 Toxic Granulation Not Reportable 08/06/17 00:21 Toxic Vacuolation Not Reportable 08/06/17 00:21 Dohle Bodies Not Reportable 08/06/17 00:21 Pelger-Huet Anomaly Not Reportable 08/06/17 00:21 [place] Rods Not Reportable 08/06/17 00:21 Platelet Estimate Consistent w auto 08/06/17 00:21 Clumped Platelets Not Reportable 08/06/17 00:21 Plt Clumps, EDTA Not Reportable 08/06/17 00:21 Large Platelets Not Reportable 08/06/17 00:21 Giant Platelets Not Reportable 08/06/17 00:21 Platelet Satelliting Not Reportable 08/06/17 00:21 Plt Morphology Comment Not Reportable 08/06/17 00:21 RBC Morphology Not Reportable 08/06/17 00:21 Dimorphic RBCs Not Reportable 08/06/17 00:21 Polychromasia Not Reportable 08/06/17 00:21 Hypochromasia 1+ 08/06/17 00:21 Poikilocytosis Not Reportable 08/06/17 00:21 Anisocytosis Not Reportable 08/06/17 00:21 Microcytosis Not Reportable 08/06/17 00:21 Macrocytosis Not Reportable 08/06/17 00:21 Spherocytes Not Reportable 08/06/17 00:21 Pappenheimer Bodies Not Reportable 08/06/17 00:21 Sickle Cells Not Reportable 08/06/17 00:21 Target Cells Few 08/06/17 00:21 Tear Drop Cells Not Reportable 08/06/17 00:21 Ovalocytes Not Reportable 08/06/17 00:21 Helmet Cells Not Reportable 08/06/17 00:21 Cheek-[place]uthers Bodies Not Reportable 08/06/17 00:21 [place] Rings Not Reportable 08/06/17 00:21 [place] Cells Not Reportable 08/06/17 00:21 Bite Cells Not Reportable 08/06/17 00:21 Crenated Cell Not Reportable 08/06/17 00:21 Elliptocytes Not Reportable 08/06/17 00:21 Acanthocytes (Spur) Not Reportable 08/06/17 00:21 Rouleaux Not Reportable 08/06/17 00:21 Hemoglobin C Crystals Not Reportable 08/06/17 00:21 Schistocytes Not Reportable 08/06/17 00:21 Malaria parasites Not Reportable 08/06/17 00:21 Carlo Bodies Not Reportable 08/06/17 00:21 Hem Pathologist Commnt No 08/06/17 00:21 PT 15.0 Sec. (12.2-14.9) H 08/10/17 07:02 INR 1.12 (0.87-1.13) 08/10/17 07:02 APTT 24.2 Sec. (24.2-36.6) 08/06/17 00:21 D-Dimer 765.25 ng/mlDDU (0-234) H 08/06/17 00:21 POC ABG pH 7.625 (7.35-7.45) H 08/09/17 12:46 POC ABG pCO2 45.7 (35-45) H 08/09/17 12:46 POC ABG pO2 30 (80-105) L 08/09/17 12:46 POC ABG HCO3 47.5 08/09/17 12:46 POC ABG Total CO2 49 08/09/17 12:46 POC ABG O2 Sat 69 08/09/17 12:46 POC ABG Base Excess 26 08/09/17 12:46 FiO2 21 % 08/09/17 12:46 Sodium 152 mmol/L (137-145) H 08/10/17 07:02 Potassium 3.5 mmol/L (3.6-5.0) L 08/10/17 07:02 Chloride 100.6 mmol/L (98-107) 08/10/17 07:02 Carbon Dioxide 44 mmol/L (22-30) H* 08/10/17 07:02 Anion Gap 11 mmol/L 08/10/17 07:02 BUN 21 mg/dL (7-17) H 08/10/17 07:02 Creatinine 0.9 mg/dL (0.7-1.2) 08/10/17 07:02 Estimated GFR > 60 ml/min 08/10/17 07:02 BUN/Creatinine Ratio 23 % 08/10/17 07:02 Glucose 111 mg/dL (65-100) H 08/10/17 07:02 Calcium 8.1 mg/dL (8.4-10.2) L 08/10/17 07:02 Total Creatine Kinase 37 units/L (30-135) 08/06/17 12:45 CK-MB (CK-2) < 1.0 ng/mL (0.0-4.0) 08/06/17 12:45 CK-MB (CK-2) Rel Index 2.7 (0-4) 08/06/17 12:45 Troponin T < 0.010 ng/mL (0.00-0.029) 08/06/17 12:45 Blood Type A POSITIVE 08/09/17 19:52 Antibody Screen Negative 08/09/17 19:52 Crossmatch See Detail 08/09/17 19:52
[2017-08-10 18:05] LABS: Hemoglobin 8.7 gm/dl (10.1-14.3)
[2017-08-10] MEDS: PREZISTA PO SCH (18:11)
[2017-08-10] MEDS: SODIUM CHLORIDE FLUSH SYRINGE 10 ML IV SCH (18:13)
[2017-08-10] MEDS: ZIAGEN PO SCH (18:15)
[2017-08-10] MEDS: TIVICAY (NF) PO SCH (18:15)
[2017-08-10] MEDS: NACL 0.9% 1000 ML 1,000 ML IV SCH (18:16)
[2017-08-10] MEDS: LEVAQUIN PO SCH (20:17)
[2017-08-10] MEDS: LOPRESSOR PO SCH (21:31)
[2017-08-10 21:35] LABS: Hematocrit 25.6 % (30.3-42.9); Hemoglobin 8.2 gm/dl (10.1-14.3)
[2017-08-11] MEDS: SODIUM CHLORIDE FLUSH SYRINGE 10 ML IV SCH ×2 (01:02→18:29)
[2017-08-11] MEDS: PROTONIX 80 MG in NACL 0.9% 100 ML IV SCH ×2 (03:25→14:50)
[2017-08-11] MEDS: LASIX IV SCH ×2 (06:36→18:30)
--- NOTE | 2017-08-11 08:51 | Progress Note ---
Assessment and Plan 1. Chronic atrial fibrillation with controlled ventricular response 2. Chronic cor pulmonale with right sided heart failure and severe pulmonary hypertension. 3. History of HIV 4. Obesity 5. Obstructive sleep apnea Plan. Patient is undergoing GI workup for anemia anticoagulation on hold. Subjective Date of service: 08/11/17 Principal diagnosis: CHF Interval history: No cardiac symptoms Objective Vital Signs Temp Pulse Resp BP BP Pulse Ox 08/11/17 08:21 98.1 F 80 19 127/68 99 08/11/17 05:41 98.5 F 77 18 125/59 99 08/11/17 04:59 79 125/59 99 08/11/17 00:55 97.8 F 86 20 113/64 99 08/10/17 23:30 100 H 21 98 08/10/17 21:31 64 114/58 08/10/17 21:30 18 08/10/17 20:07 98 F 64 18 114/58 94 08/10/17 19:27 102 H 114/58 95 08/10/17 15:37 98.1 F 83 16 114/66 100 08/10/17 12:45 98.8 F 91 H 25 H 115/61 94 08/10/17 12:26 89 91 H 110/64 96 08/10/17 10:00 97 - Physical Examination General: Appears Well, No Apparent Distress HEENT: Positive: PERRL, Normocephaly Neck: Positive: neck supple. Negative: JVD/HJR Cardiac: Positive: Regular Rate, S1/S2, S3. Negative: PMI, Dilated, Laterally Displaced Lungs: Positive: clear to auscultation, No Wheeze, Rales, Rhonchi Neuro: Positive: Grossly Intact Abdomen: Positive: Unremarkable, Soft Skin: Positive: Clear Extremities: Present: edema (trace) - Labs and Meds CBC 08/10/17 08/10/17 Range/Units 17:16 21:20 Hgb 8.7 L 8.2 L (10.1-14.3) gm/dl Hct 27.0 L 25.6 L (30.3-42.9) % Comprehensive Metabolic Panel 08/10/17 Range/Units 07:02 Carbon Dioxide 44 H* (22-30) mmol/L - Imaging and Cardiology EKG: image reviewed
[2017-08-11 09:06] LABS: BUN/Creatinine Ratio 19; Basophils % (Auto) 0.3 % (0.0-1.8); Blood Urea Nitrogen 17 mg/dL (7-17); Eosinophils % (Auto) 0.5 % (0.0-4.3); Hematocrit 25.7 % (30.3-42.9); Hemoglobin 8.2 gm/dl (10.1-14.3); Hemolysis Index 18; Lymphocytes # (Auto) 1.4 K/mm3 (1.2-5.4); Mean Corpuscular HGB Conc 32 % (30-34); Mean Corpuscular Hemoglobin 27 pg (28-32); Mean Corpuscular Volume 83 fl (79-97); Monocytes # (Auto) 1.2 K/mm3 (0.0-0.8); Monocytes % (Auto) 12.1 % (0.0-7.3); Platelet Count 142 K/mm3 (140-440); Red Blood Count 3.09 M/mm3 (3.65-5.03); Red Cell Distribution Width 16.7 % (13.2-15.2)
[2017-08-11 09:31] LABS: INR 1.08 (0.87-1.13)
--- NOTE | 2017-08-11 10:04 | Progress Note ---
Assessment and Plan 82 y/o female with HIV, dementia and newly diagnosed pulmonary hypertension with cor pumonale No new recs for today 1. Continue PPV at night. Can use PRN if needed 2. Continue net negative state daily 3. Wean FiO2 as tolerated 4. if patient does not have PPV at home, suggest asking CM to see if she qualifies for a machine, like a trilogy. 1. Etiology is likely multifactorial. 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 The patient is not able to give any history to help with diagnosis. She does appear to be volume overloaded and I feel adequate diuresis is the first appropriate step in treating this disease. She is hypoxic based on her ABG from earlier today. We will place patient on nightly bipap starting tonight. Will consider repeat ABG in the am. Agree with HIV therapy. NO definite infiltrate on CXR, if abx therapy is for lungs, would suggest stopping. Subjective Date of service: 08/11/17 Principal diagnosis: CHF Interval history: Asleep and at bedside asleep. Had scope yesterday by GI. Objective Vital Signs - 12hr 08/10/17 08/11/17 08/11/17 23:30 00:55 04:59 Temperature 97.8 F Pulse Rate 100 H 86 79 Respiratory 21 20 Rate Blood Pressure 125/59 Blood Pressure 113/64 [Left] O2 Sat by Pulse 98 99 99 Oximetry 08/11/17 08/11/17 05:41 08:21 Temperature 98.5 F 98.1 F Pulse Rate 77 80 Respiratory 18 19 Rate Blood Pressure 127/68 Blood Pressure 125/59 [Left] O2 Sat by Pulse 99 99 Oximetry Constitutional: no acute distress, appears uncomfortable, other (morbidly obese) Neck: other (short, large in circumference) Ascultation: Bilateral: diminished breath sounds Percussion: Bilateral: not dull Cardiovascular: regular rate and rhythm Gastrointestinal: other (obese) Neurologic: unable to assess CBC and BMP: 08/11/17 07:51 08/11/17 07:51 ABG, PT/INR, D-dimer: ABG POC ABG pH 7.625 (7.35-7.45) H 08/09/17 12:46 POC ABG pCO2 45.7 (35-45) H 08/09/17 12:46 POC ABG pO2 30 (80-105) L 08/09/17 12:46 POC ABG HCO3 47.5 08/09/17 12:46 POC ABG Total CO2 49 08/09/17 12:46 POC ABG O2 Sat 69 08/09/17 12:46 PT/INR, D-dimer PT 14.6 Sec. (12.2-14.9) 08/11/17 07:51 INR 1.08 (0.87-1.13) 08/11/17 07:51 D-Dimer 765.25 ng/mlDDU (0-234) H 08/06/17 00:21 Abnormal lab findings: Abnormal Labs 08/06/17 08/06/17 08/06/17 00:15 00:21 00:21 WBC RBC Hgb Hct MCH 26 L RDW 18.0 H Lymph % (Auto) [place] % (Auto) Lymph # [place] # Seg Neutrophils % Seg Neuts % (Manual) 84.0 H Lymphocytes % (Manual) 6.0 L Nucleated RBC % 4.0 H Seg Neutrophils # Seg Neutrophils # Man 8.1 H Lymphocytes # (Manual) 0.6 L PT D-Dimer POC ABG pH POC ABG pCO2 57.0 H POC ABG pO2 41 L Sodium Potassium Chloride 94.5 L Carbon Dioxide 32 H BUN 33 H Creatinine 2.4 H Glucose 128 H Calcium Crossmatch 08/06/17 08/07/17 08/07/17 00:21 06:38 06:38 WBC RBC Hgb 10.0 L Hct MCH 26 L RDW 17.5 H Lymph % (Auto) 9.0 L [place] % (Auto) 12.5 H Lymph # 0.8 L [place] # 1.2 H Seg Neutrophils % 78.2 H Seg Neuts % (Manual) Lymphocytes % (Manual) Nucleated RBC % Seg Neutrophils # Seg Neutrophils # Man Lymphocytes # (Manual) PT D-Dimer 765.25 H POC ABG pH POC ABG pCO2 POC ABG pO2 Sodium Potassium 5.5 H D Chloride Carbon Dioxide 31 H BUN 41 H Creatinine 1.7 H Glucose Calcium Crossmatch 08/08/17 08/08/17 08/08/17 06:36 06:36 10:06 WBC 11.2 H RBC 3.47 L Hgb 8.9 L Hct 28.6 L MCH 26 L RDW 17.3 H Lymph % (Auto) 10.2 L [place] % (Auto) 10.9 H Lymph # 1.1 L [place] # 1.2 H Seg Neutrophils % 78.3 H Seg Neuts % (Manual) Lymphocytes % (Manual) Nucleated RBC % Seg Neutrophils # 8.8 H Seg Neutrophils # Man Lymphocytes # (Manual) PT D-Dimer POC ABG pH 7.520 H POC ABG pCO2 59.5 H POC ABG pO2 59 L Sodium 150 H D Potassium Chloride Carbon Dioxide 41 H* D BUN 32 H Creatinine Glucose 124 H Calcium Crossmatch 08/09/17 08/09/17 08/09/17 06:11 12:46 16:32 WBC 12.6 H 12.0 H RBC 3.05 L 2.88 L Hgb 7.9 L 7.5 L Hct 24.9 L 23.3 L MCH 26 L 26 L RDW 17.2 H 17.5 H Lymph % (Auto) 8.8 L [place] % (Auto) 14.9 H Lymph # 1.1 L [place] # 1.8 H Seg Neutrophils % 76.3 H Seg Neuts % (Manual) Lymphocytes % (Manual) Nucleated RBC % Seg Neutrophils # 9.1 H Seg Neutrophils # Man Lymphocytes # (Manual) PT D-Dimer POC ABG pH 7.625 H POC ABG pCO2 45.7 H POC ABG pO2 30 L Sodium Potassium Chloride Carbon Dioxide BUN Creatinine Glucose Calcium Crossmatch 08/09/17 08/09/17 08/10/17 16:32 19:52 01:00 WBC RBC Hgb 6.9 L Hct 21.7 L MCH RDW Lymph % (Auto) [place] % (Auto) Lymph # [place] # Seg Neutrophils % Seg Neuts % (Manual) Lymphocytes % (Manual) Nucleated RBC % Seg Neutrophils # Seg Neutrophils # Man Lymphocytes # (Manual) PT D-Dimer POC ABG pH POC ABG pCO2 POC ABG pO2 Sodium 153 H Potassium Chloride Carbon Dioxide 45 H* BUN 33 H Creatinine Glucose 109 H Calcium Crossmatch See Detail 08/10/17 08/10/17 08/10/17 07:02 07:02 07:02 WBC RBC 3.14 L Hgb 8.2 L Hct 25.8 L MCH 26 L RDW 17.1 H Lymph % (Auto) [place] % (Auto) 11.8 H Lymph # [place] # 1.2 H Seg Neutrophils % 73.8 H Seg Neuts % (Manual) Lymphocytes % (Manual) Nucleated RBC % Seg Neutrophils # Seg Neutrophils # Man Lymphocytes # (Manual) PT 15.0 H D-Dimer POC ABG pH POC ABG pCO2 POC ABG pO2 Sodium 152 H Potassium 3.5 L Chloride Carbon Dioxide 44 H* BUN 21 H Creatinine Glucose 111 H Calcium 8.1 L Crossmatch 08/10/17 08/10/17 08/11/17 17:16 21:20 07:51 WBC RBC 3.09 L Hgb 8.7 L 8.2 L 8.2 L Hct 27.0 L 25.6 L 25.7 L MCH 27 L RDW 16.7 H Lymph % (Auto) [place] % (Auto) 12.1 H Lymph # [place] # 1.2 H Seg Neutrophils % 73.1 H Seg Neuts % (Manual) Lymphocytes % (Manual) Nucleated RBC % Seg Neutrophils # Seg Neutrophils # Man Lymphocytes # (Manual) PT D-Dimer POC ABG pH POC ABG pCO2 POC ABG pO2 Sodium Potassium Chloride Carbon Dioxide BUN Creatinine Glucose Calcium Crossmatch 08/11/17 07:51 WBC RBC Hgb Hct MCH RDW Lymph % (Auto) [place] % (Auto) Lymph # [place] # Seg Neutrophils % Seg Neuts % (Manual) Lymphocytes % (Manual) Nucleated RBC % Seg Neutrophils # Seg Neutrophils # Man Lymphocytes # (Manual) PT D-Dimer POC ABG pH POC ABG pCO2 POC ABG pO2 Sodium 149 H Potassium Chloride Carbon Dioxide 40 H BUN Creatinine Glucose Calcium 8.0 L Crossmatch
[2017-08-11] MEDS: PREZISTA PO SCH (11:19)
[2017-08-11] MEDS: LOPRESSOR PO SCH ×2 (11:19→21:53)
[2017-08-11] MEDS: TIVICAY (NF) PO SCH (11:21)
[2017-08-11] MEDS: ZIAGEN PO SCH (11:21)
--- NOTE | 2017-08-11 12:51 | Gastroenterology Progress Note ---
Assessment and Plan GI: UGI bleed w/ PUD on egd - continue PPI iv - follow h/h, transfuse as needed - advance diet - if stable in am ok to d/c from GI standpoint Subjective Date of service: 08/11/17 Principal diagnosis: CHF Interval history: - no signs bleeding overnight. Denies GI complaints Objective - Constitutional Vitals: Temp Pulse Resp BP Pulse Ox 98.1 F 80 19 127/68 99 08/11/17 08:21 08/11/17 08:21 08/11/17 08:21 08/11/17 08:21 08/11/17 08:21 General appearance: no acute distress - EENT Eyes: PERRL - Respiratory Respiratory: bilateral: CTA - Cardiovascular Rhythm: regular Heart Sounds: Present: S1 & S2 - Gastrointestinal General gastrointestinal: Present: soft, non-tender, non-distended - Labs CBC & Chem 7: 08/11/17 07:51 08/11/17 07:51 Labs: Laboratory Results - last 24 hr 08/10/17 08/10/17 08/11/17 17:16 21:20 07:51 WBC RBC Hgb 8.7 L 8.2 L Hct 27.0 L 25.6 L MCV MCH MCHC RDW Plt Count Lymph % (Auto) [place] % (Auto) Eos % (Auto) Baso % (Auto) Lymph # [place] # Eos # Baso # Seg Neutrophils % Seg Neutrophils # PT 14.6 INR 1.08 Sodium Potassium Chloride Carbon Dioxide Anion Gap BUN Creatinine Estimated GFR BUN/Creatinine Ratio Glucose Calcium 08/11/17 08/11/17 07:51 07:51 WBC 10.3 RBC 3.09 L Hgb 8.2 L Hct 25.7 L MCV 83 MCH 27 L MCHC 32 RDW 16.7 H Plt Count 142 Lymph % (Auto) 14.0 [place] % (Auto) 12.1 H Eos % (Auto) 0.5 Baso % (Auto) 0.3 Lymph # 1.4 [place] # 1.2 H Eos # 0.0 Baso # 0.0 Seg Neutrophils % 73.1 H Seg Neutrophils # 7.5 PT INR Sodium 149 H Potassium 3.8 Chloride 100.5 Carbon Dioxide 40 H Anion Gap 12 BUN 17 Creatinine 0.9 Estimated GFR > 60 BUN/Creatinine Ratio 19 Glucose 90 Calcium 8.0 L
--- NOTE | 2017-08-11 16:29 | Progress Note ---
Assessment and Plan Assessment and plan: 82 year old -[place] female with medical history significant for dementia, HIV/AIDS, A. fib on anticoagulation was brought to the emergency department for the complains of shortness of breath. In the emergency department chest x-ray was done and showed pulmonary congestion, elevated creatinine Congestive heart failure - Diastolic CHF - Patient is on IV Lasix - Blood pressure is marginal and couldn't tolerate any other blood pressure medication Cor pulmonale - Pulmonary consulted Atrial fibrillation - Held Coumadin because of GI bleed TREY - Resolved Hypokalemia - will replace and check in the morning Dementia - supportive care HIV/AIDS - Restart home medication GI bleed - Gl was consulted and they did EGD and showed 2 deep ulcers with fibrous base, no active bleeding - ON Pantoprazole drip - NPO, will start with clear liquid diet in the morning DVT prophylaxis - SCDs because of GI bleed Disposition -Continue inpatient care History Interval history: Patient has severe dementia and she she answer yes to every question. Hospitalist Physical - Physical exam Narrative exam: Not in cardiopulmonary distress. The patient is morbidly obese. Vital signs as documented. Head exam is unremarkable. No scleral icterus . Neck is without jugular venous distension, thyromegaly, or carotid bruits. Lungs are clear to auscultation. Cardiac exam reveals irregular rate and Rhythm. Abdominal exam reveals normal bowel sounds. Extremities are nonedematous and both femoral and pedal pulses are normal. TRAPEZE ARTIST: Alert and not oriented. No focal weakness. - Constitutional Vitals: Temp Pulse Resp BP Pulse Ox 98.1 F 84 19 116/57 92 08/11/17 12:31 08/11/17 12:31 08/11/17 12:31 08/11/17 12:31 08/11/17 12:31 General appearance: Present: no acute distress Results - Labs CBC & Chem 7: 08/11/17 07:51 08/11/17 07:51 Labs: Laboratory Last Values WBC 10.3 K/mm3 (4.5-11.0) 08/11/17 07:51 RBC 3.09 M/mm3 (3.65-5.03) L 08/11/17 07:51 Hgb 8.2 gm/dl (10.1-14.3) L 08/11/17 07:51 Hct 25.7 % (30.3-42.9) L 08/11/17 07:51 MCV 83 fl (79-97) 08/11/17 07:51 MCH 27 pg (28-32) L 08/11/17 07:51 MCHC 32 % (30-34) 08/11/17 07:51 RDW 16.7 % (13.2-15.2) H 08/11/17 07:51 Plt Count 142 K/mm3 (140-440) 08/11/17 07:51 Lymph % (Auto) 14.0 % (13.4-35.0) 08/11/17 07:51 [place] % (Auto) 12.1 % (0.0-7.3) H 08/11/17 07:51 Eos % (Auto) 0.5 % (0.0-4.3) 08/11/17 07:51 Baso % (Auto) 0.3 % (0.0-1.8) 08/11/17 07:51 Lymph # 1.4 K/mm3 (1.2-5.4) 08/11/17 07:51 [place] # 1.2 K/mm3 (0.0-0.8) H 08/11/17 07:51 Eos # 0.0 K/mm3 (0.0-0.4) 08/11/17 07:51 Baso # 0.0 K/mm3 (0.0-0.1) 08/11/17 07:51 Add Manual Diff Complete 08/06/17 00:21 Total Counted 100 08/06/17 00:21 Seg Neutrophils % 73.1 % (40.0-70.0) H 08/11/17 07:51 Seg Neuts % (Manual) 84.0 % (40.0-70.0) H 08/06/17 00:21 Band Neutrophils % 2.0 % 08/06/17 00:21 Lymphocytes % (Manual) 6.0 % (13.4-35.0) L 08/06/17 00:21 Reactive Lymphs % (Man) 0 % 08/06/17 00:21 Monocytes % (Manual) 7.0 % (0.0-7.3) 08/06/17 00:21 Eosinophils % (Manual) 0 % (0.0-4.3) 08/06/17 00:21 Basophils % (Manual) 0 % (0.0-1.8) 08/06/17 00:21 Metamyelocytes % 0 % 08/06/17 00:21 Myelocytes % 1.0 % 08/06/17 00:21 Promyelocytes % 0 % 08/06/17 00:21 Blast Cells % 0 % 08/06/17 00:21 Nucleated RBC % 4.0 % (0.0-0.9) H 08/06/17 00:21 Seg Neutrophils # 7.5 K/mm3 (1.8-7.7) 08/11/17 07:51 Seg Neutrophils # Man 8.1 K/mm3 (1.8-7.7) H 08/06/17 00:21 Band Neutrophils # 0.2 K/mm3 08/06/17 00:21 Lymphocytes # (Manual) 0.6 K/mm3 (1.2-5.4) L 08/06/17 00:21 Abs React Lymphs (Man) 0.0 K/mm3 08/06/17 00:21 Monocytes # (Manual) 0.7 K/mm3 (0.0-0.8) 08/06/17 00:21 Eosinophils # (Manual) 0.0 K/mm3 (0.0-0.4) 08/06/17 00:21 Basophils # (Manual) 0.0 K/mm3 (0.0-0.1) 08/06/17 00:21 Metamyelocytes # 0.0 K/mm3 08/06/17 00:21 Myelocytes # 0.1 K/mm3 08/06/17 00:21 Promyelocytes # 0.0 K/mm3 08/06/17 00:21 Blast Cells # 0.0 K/mm3 08/06/17 00:21 WBC Morphology Not Reportable 08/06/17 00:21 Hypersegmented Neuts Not Reportable 08/06/17 00:21 Hyposegmented Neuts Not Reportable 08/06/17 00:21 Hypogranular Neuts Not Reportable 08/06/17 00:21 Smudge Cells Not Reportable 08/06/17 00:21 Toxic Granulation Not Reportable 08/06/17 00:21 Toxic Vacuolation Not Reportable 08/06/17 00:21 Dohle Bodies Not Reportable 08/06/17 00:21 Pelger-Huet Anomaly Not Reportable 08/06/17 00:21 Bryant Rods Not Reportable 08/06/17 00:21 Platelet Estimate Consistent w auto 08/06/17 00:21 Clumped Platelets Not Reportable 08/06/17 00:21 Plt Clumps, EDTA Not Reportable 08/06/17 00:21 Large Platelets Not Reportable 08/06/17 00:21 Giant Platelets Not Reportable 08/06/17 00:21 Platelet Satelliting Not Reportable 08/06/17 00:21 Plt Morphology Comment Not Reportable 08/06/17 00:21 RBC Morphology Not Reportable 08/06/17 00:21 Dimorphic RBCs Not Reportable 08/06/17 00:21 Polychromasia Not Reportable 08/06/17 00:21 Hypochromasia 1+ 08/06/17 00:21 Poikilocytosis Not Reportable 08/06/17 00:21 Anisocytosis Not Reportable 08/06/17 00:21 Microcytosis Not Reportable 08/06/17 00:21 Macrocytosis Not Reportable 08/06/17 00:21 Spherocytes Not Reportable 08/06/17 00:21 Pappenheimer Bodies Not Reportable 08/06/17 00:21 Sickle Cells Not Reportable 08/06/17 00:21 Target Cells Few 08/06/17 00:21 Tear Drop Cells Not Reportable 08/06/17 00:21 Ovalocytes Not Reportable 08/06/17 00:21 Helmet Cells Not Reportable 08/06/17 00:21 Cheek-Chamberlain Bodies Not Reportable 08/06/17 00:21 [place] Rings Not Reportable 08/06/17 00:21 Hermes Cells Not Reportable 08/06/17 00:21 Bite Cells Not Reportable 08/06/17 00:21 Crenated Cell Not Reportable 08/06/17 00:21 Elliptocytes Not Reportable 08/06/17 00:21 Acanthocytes (Spur) Not Reportable 08/06/17 00:21 Rouleaux Not Reportable 08/06/17 00:21 Hemoglobin C Crystals Not Reportable 08/06/17 00:21 Schistocytes Not Reportable 08/06/17 00:21 Malaria parasites Not Reportable 08/06/17 00:21 Carlo Bodies Not Reportable 08/06/17 00:21 Hem Pathologist Commnt No 08/06/17 00:21 PT 14.6 Sec. (12.2-14.9) 08/11/17 07:51 INR 1.08 (0.87-1.13) 08/11/17 07:51 APTT 24.2 Sec. (24.2-36.6) 08/06/17 00:21 D-Dimer 765.25 ng/mlDDU (0-234) H 08/06/17 00:21 POC ABG pH 7.625 (7.35-7.45) H 08/09/17 12:46 POC ABG pCO2 45.7 (35-45) H 08/09/17 12:46 POC ABG pO2 30 (80-105) L 08/09/17 12:46 POC ABG HCO3 47.5 08/09/17 12:46 POC ABG Total CO2 49 08/09/17 12:46 POC ABG O2 Sat 69 08/09/17 12:46 POC ABG Base Excess 26 08/09/17 12:46 FiO2 21 % 08/09/17 12:46 Sodium 149 mmol/L (137-145) H 08/11/17 07:51 Potassium 3.8 mmol/L (3.6-5.0) 08/11/17 07:51 Chloride 100.5 mmol/L (98-107) 08/11/17 07:51 Carbon Dioxide 40 mmol/L (22-30) H 08/11/17 07:51 Anion Gap 12 mmol/L 08/11/17 07:51 BUN 17 mg/dL (7-17) 08/11/17 07:51 Creatinine 0.9 mg/dL (0.7-1.2) 08/11/17 07:51 Estimated GFR > 60 ml/min 08/11/17 07:51 BUN/Creatinine Ratio 19 % 08/11/17 07:51 Glucose 90 mg/dL (65-100) 08/11/17 07:51 Calcium 8.0 mg/dL (8.4-10.2) L 08/11/17 07:51 Total Creatine Kinase 37 units/L (30-135) 08/06/17 12:45 CK-MB (CK-2) < 1.0 ng/mL (0.0-4.0) 08/06/17 12:45 CK-MB (CK-2) Rel Index 2.7 (0-4) 08/06/17 12:45 Troponin T < 0.010 ng/mL (0.00-0.029) 08/06/17 12:45 Blood Type A POSITIVE 08/09/17 19:52 Antibody Screen Negative 08/09/17 19:52 Crossmatch See Detail 08/09/17 19:52
[2017-08-11] MEDS: NACL 0.9% 1000 ML 1,000 ML IV SCH (18:31)
[2017-08-12] MEDS: LASIX IV SCH ×2 (05:40→17:57)
[2017-08-12 08:29] LABS: Basophils % (Auto) 0.4 % (0.0-1.8); Eosinophils # (Auto) 0.1 K/mm3 (0.0-0.4); Hematocrit 26.5 % (30.3-42.9); Hemoglobin 8.2 gm/dl (10.1-14.3); Lymphocytes # (Auto) 1.5 K/mm3 (1.2-5.4); Lymphocytes % (Auto) 12.9 % (13.4-35.0); Mean Corpuscular HGB Conc 31 % (30-34); Mean Corpuscular Volume 84 fl (79-97); Monocytes # (Auto) 1.3 K/mm3 (0.0-0.8); Monocytes % (Auto) 11.4 % (0.0-7.3); Platelet Count 147 K/mm3 (140-440); Red Blood Count 3.17 M/mm3 (3.65-5.03); Red Cell Distribution Width 16.9 % (13.2-15.2)
[2017-08-12 08:37] LABS: INR 1.11 (0.87-1.13)
[2017-08-12 08:42] LABS: Mean Corpuscular Hemoglobin 26 pg (28-32)
[2017-08-12 08:55] LABS: BUN/Creatinine Ratio 19; Blood Urea Nitrogen 17 mg/dL (7-17); Calcium 7.9 mg/dL (8.4-10.2); Hemolysis Index 20
--- NOTE | 2017-08-12 09:08 | Progress Note ---
Assessment and Plan 1. Chronic atrial fibrillation with controlled ventricular response 2. Chronic cor pulmonale with right sided heart failure and severe pulmonary hypertension. 3. History of HIV 4. Obesity 5. Obstructive sleep apnea Plan. Patient is undergoing GI workup for anemia anticoagulation on hold. Subjective Date of service: 08/12/17 Principal diagnosis: CHF Interval history: No cardiac symptoms wants to go home Objective Vital Signs Temp Pulse Resp BP BP Pulse Ox 08/12/17 08:00 98.4 F 81 20 105/62 95 08/12/17 04:31 98.0 F 85 18 117/65 99 08/12/17 00:24 71 23 100 08/11/17 22:56 98.2 F 74 18 116/65 100 08/11/17 22:26 98 08/11/17 20:07 98.2 F 93 H 20 115/67 93 08/11/17 17:32 98.4 F 83 20 102/49 98 08/11/17 12:31 98.1 F 84 19 116/57 92 - Physical Examination General: Appears Well, No Apparent Distress, Other (obese) HEENT: Positive: PERRL, Normocephaly Neck: Positive: neck supple. Negative: JVD/HJR Cardiac: Positive: Reg Rate and Rhythm, Regular Rate, S1/S2, S3, PMI, Laterally Displaced Lungs: Positive: clear to auscultation, No Wheeze, Rales, Rhonchi Neuro: Positive: Grossly Intact Abdomen: Positive: Unremarkable, Soft Skin: Positive: Clear Extremities: Present: edema (trace) - Labs and Meds Coagulation 08/11/17 08/12/17 Range/Units 07:51 07:29 PT 14.6 14.9 (12.2-14.9) Sec. INR 1.08 1.11 (0.87-1.13) CBC 08/11/17 08/12/17 Range/Units 07:51 07:29 WBC 10.3 11.3 H (4.5-11.0) K/mm3 RBC 3.09 L 3.17 L (3.65-5.03) M/mm3 Hgb 8.2 L 8.2 L (10.1-14.3) gm/dl Hct 25.7 L 26.5 L (30.3-42.9) % Plt Count 142 147 (140-440) K/mm3 Lymph # 1.4 1.5 (1.2-5.4) K/mm3 [place] # 1.2 H 1.3 H (0.0-0.8) K/mm3 Eos # 0.0 0.1 (0.0-0.4) K/mm3 Baso # 0.0 0.0 (0.0-0.1) K/mm3 Comprehensive Metabolic Panel 08/11/17 08/12/17 Range/Units 07:51 07:29 Sodium 149 H 159 H D (137-145) mmol/L Potassium 3.8 3.9 (3.6-5.0) mmol/L Chloride 100.5 109.9 H (98-107) mmol/L Carbon Dioxide 40 H 37 H (22-30) mmol/L BUN 17 17 (7-17) mg/dL Creatinine 0.9 0.9 (0.7-1.2) mg/dL Glucose 90 86 (65-100) mg/dL Calcium 8.0 L 7.9 L (8.4-10.2) mg/dL - Imaging and Cardiology EKG: image reviewed
[2017-08-12] MEDS: LOPRESSOR PO SCH ×2 (09:44→21:59)
[2017-08-12] MEDS: PREZISTA PO SCH (09:45)
[2017-08-12] MEDS: ZIAGEN PO SCH (09:45)
[2017-08-12] MEDS: SODIUM CHLORIDE FLUSH SYRINGE 10 ML IV SCH (09:48)
[2017-08-12] MEDS: TIVICAY (NF) PO SCH (10:54)
[2017-08-12] MEDS: PROTONIX 80 MG in NACL 0.9% 100 ML IV SCH (10:54)
--- NOTE | 2017-08-12 12:55 | Progress Note ---
Assessment and Plan 82 y/o female with HIV, dementia and newly diagnosed pulmonary hypertension with cor pumonale No new recs for today 1. Continue PPV at night. Can use PRN if needed 2. Continue net negative state daily 3. Wean FiO2 as tolerated 4. if patient does not have PPV at home, suggest asking CM to see if she qualifies for a machine, like a trilogy. 1. Etiology is likely multifactorial. 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 The patient is not able to give any history to help with diagnosis. She does appear to be volume overloaded and I feel adequate diuresis is the first appropriate step in treating this disease. She is hypoxic based on her ABG from earlier today. We will place patient on nightly bipap starting tonight. Will consider repeat ABG in the am. Agree with HIV therapy. NO definite infiltrate on CXR, if abx therapy is for lungs, would suggest stopping. Subjective Date of service: 08/12/17 Principal diagnosis: CHF Interval history: No acute events Objective Vital Signs - 12hr 08/12/17 08/12/17 08/12/17 04:31 08:00 09:44 Temperature 98.0 F 98.4 F Pulse Rate 85 81 81 Respiratory 18 20 Rate Blood Pressure 117/65 105/62 Blood Pressure 105/62 [Left] O2 Sat by Pulse 99 95 Oximetry 08/12/17 09:55 Temperature Pulse Rate Respiratory Rate Blood Pressure Blood Pressure [Left] O2 Sat by Pulse 92 Oximetry Constitutional: no acute distress, appears uncomfortable, other (morbidly obese) Neck: other (short, large in circumference) Ascultation: Bilateral: diminished breath sounds Percussion: Bilateral: not dull Cardiovascular: regular rate and rhythm Gastrointestinal: other (obese) Neurologic: unable to assess CBC and BMP: 08/12/17 07:29 08/12/17 07:29 ABG, PT/INR, D-dimer: ABG POC ABG pH 7.625 (7.35-7.45) H 08/09/17 12:46 POC ABG pCO2 45.7 (35-45) H 08/09/17 12:46 POC ABG pO2 30 (80-105) L 08/09/17 12:46 POC ABG HCO3 47.5 08/09/17 12:46 POC ABG Total CO2 49 08/09/17 12:46 POC ABG O2 Sat 69 08/09/17 12:46 PT/INR, D-dimer PT 14.9 Sec. (12.2-14.9) 08/12/17 07:29 INR 1.11 (0.87-1.13) 08/12/17 07:29 D-Dimer 765.25 ng/mlDDU (0-234) H 08/06/17 00:21 Abnormal lab findings: Abnormal Labs 08/06/17 08/06/17 08/06/17 00:15 00:21 00:21 WBC RBC Hgb Hct MCH 26 L RDW 18.0 H Lymph % (Auto) [place] % (Auto) Lymph # [place] # Seg Neutrophils % Seg Neuts % (Manual) 84.0 H Lymphocytes % (Manual) 6.0 L Nucleated RBC % 4.0 H Seg Neutrophils # Seg Neutrophils # Man 8.1 H Lymphocytes # (Manual) 0.6 L PT D-Dimer POC ABG pH POC ABG pCO2 57.0 H POC ABG pO2 41 L Sodium Potassium Chloride 94.5 L Carbon Dioxide 32 H BUN 33 H Creatinine 2.4 H Glucose 128 H Calcium Crossmatch 08/06/17 08/07/17 08/07/17 00:21 06:38 06:38 WBC RBC Hgb 10.0 L Hct MCH 26 L RDW 17.5 H Lymph % (Auto) 9.0 L [place] % (Auto) 12.5 H Lymph # 0.8 L [place] # 1.2 H Seg Neutrophils % 78.2 H Seg Neuts % (Manual) Lymphocytes % (Manual) Nucleated RBC % Seg Neutrophils # Seg Neutrophils # Man Lymphocytes # (Manual) PT D-Dimer 765.25 H POC ABG pH POC ABG pCO2 POC ABG pO2 Sodium Potassium 5.5 H D Chloride Carbon Dioxide 31 H BUN 41 H Creatinine 1.7 H Glucose Calcium Crossmatch 08/08/17 08/08/17 08/08/17 06:36 06:36 10:06 WBC 11.2 H RBC 3.47 L Hgb 8.9 L Hct 28.6 L MCH 26 L RDW 17.3 H Lymph % (Auto) 10.2 L [place] % (Auto) 10.9 H Lymph # 1.1 L [place] # 1.2 H Seg Neutrophils % 78.3 H Seg Neuts % (Manual) Lymphocytes % (Manual) Nucleated RBC % Seg Neutrophils # 8.8 H Seg Neutrophils # Man Lymphocytes # (Manual) PT D-Dimer POC ABG pH 7.520 H POC ABG pCO2 59.5 H POC ABG pO2 59 L Sodium 150 H D Potassium Chloride Carbon Dioxide 41 H* D BUN 32 H Creatinine Glucose 124 H Calcium Crossmatch 08/09/17 08/09/17 08/09/17 06:11 12:46 16:32 WBC 12.6 H 12.0 H RBC 3.05 L 2.88 L Hgb 7.9 L 7.5 L Hct 24.9 L 23.3 L MCH 26 L 26 L RDW 17.2 H 17.5 H Lymph % (Auto) 8.8 L [place] % (Auto) 14.9 H Lymph # 1.1 L [place] # 1.8 H Seg Neutrophils % 76.3 H Seg Neuts % (Manual) Lymphocytes % (Manual) Nucleated RBC % Seg Neutrophils # 9.1 H Seg Neutrophils # Man Lymphocytes # (Manual) PT D-Dimer POC ABG pH 7.625 H POC ABG pCO2 45.7 H POC ABG pO2 30 L Sodium Potassium Chloride Carbon Dioxide BUN Creatinine Glucose Calcium Crossmatch 08/09/17 08/09/17 08/10/17 16:32 19:52 01:00 WBC RBC Hgb 6.9 L Hct 21.7 L MCH RDW Lymph % (Auto) [place] % (Auto) Lymph # [place] # Seg Neutrophils % Seg Neuts % (Manual) Lymphocytes % (Manual) Nucleated RBC % Seg Neutrophils # Seg Neutrophils # Man Lymphocytes # (Manual) PT D-Dimer POC ABG pH POC ABG pCO2 POC ABG pO2 Sodium 153 H Potassium Chloride Carbon Dioxide 45 H* BUN 33 H Creatinine Glucose 109 H Calcium Crossmatch See Detail 08/10/17 08/10/17 08/10/17 07:02 07:02 07:02 WBC RBC 3.14 L Hgb 8.2 L Hct 25.8 L MCH 26 L RDW 17.1 H Lymph % (Auto) [place] % (Auto) 11.8 H Lymph # [place] # 1.2 H Seg Neutrophils % 73.8 H Seg Neuts % (Manual) Lymphocytes % (Manual) Nucleated RBC % Seg Neutrophils # Seg Neutrophils # Man Lymphocytes # (Manual) PT 15.0 H D-Dimer POC ABG pH POC ABG pCO2 POC ABG pO2 Sodium 152 H Potassium 3.5 L Chloride Carbon Dioxide 44 H* BUN 21 H Creatinine Glucose 111 H Calcium 8.1 L Crossmatch 08/10/17 08/10/17 08/11/17 17:16 21:20 07:51 WBC RBC 3.09 L Hgb 8.7 L 8.2 L 8.2 L Hct 27.0 L 25.6 L 25.7 L MCH 27 L RDW 16.7 H Lymph % (Auto) [place] % (Auto) 12.1 H Lymph # [place] # 1.2 H Seg Neutrophils % 73.1 H Seg Neuts % (Manual) Lymphocytes % (Manual) Nucleated RBC % Seg Neutrophils # Seg Neutrophils # Man Lymphocytes # (Manual) PT D-Dimer POC ABG pH POC ABG pCO2 POC ABG pO2 Sodium Potassium Chloride Carbon Dioxide BUN Creatinine Glucose Calcium Crossmatch 08/11/17 08/12/17 08/12/17 07:51 07:29 07:29 WBC 11.3 H RBC 3.17 L Hgb 8.2 L Hct 26.5 L MCH 26 L RDW 16.9 H Lymph % (Auto) 12.9 L [place] % (Auto) 11.4 H Lymph # [place] # 1.3 H Seg Neutrophils % 74.3 H Seg Neuts % (Manual) Lymphocytes % (Manual) Nucleated RBC % Seg Neutrophils # 8.4 H Seg Neutrophils # Man Lymphocytes # (Manual) PT D-Dimer POC ABG pH POC ABG pCO2 POC ABG pO2 Sodium 149 H 159 H D Potassium Chloride 109.9 H Carbon Dioxide 40 H 37 H BUN Creatinine Glucose Calcium 8.0 L 7.9 L Crossmatch
--- NOTE | 2017-08-12 13:30 | Gastroenterology Progress Note ---
Assessment and Plan GI: pt w/o further signs bleeding - continue PPI bid - diet as tolerated - ok to d/c from GI standpoint - will sign off, call if needed Subjective Date of service: 08/12/17 Principal diagnosis: CHF Interval history: - no GI issues overnight Objective - Constitutional Vitals: Temp Pulse Resp BP Pulse Ox 98.4 F 81 20 105/62 92 08/12/17 08:00 08/12/17 09:44 08/12/17 08:00 08/12/17 09:44 08/12/17 09:55 General appearance: no acute distress - EENT Eyes: PERRL - Respiratory Respiratory: bilateral: CTA - Cardiovascular Rhythm: regular Heart Sounds: Present: S1 & S2 - Gastrointestinal General gastrointestinal: Present: soft, non-tender, non-distended - Labs CBC & Chem 7: 08/12/17 07:29 08/12/17 07:29 Labs: Laboratory Results - last 24 hr 08/12/17 08/12/17 08/12/17 07:29 07:29 07:29 WBC 11.3 H RBC 3.17 L Hgb 8.2 L Hct 26.5 L MCV 84 MCH 26 L MCHC 31 RDW 16.9 H Plt Count 147 Lymph % (Auto) 12.9 L [place] % (Auto) 11.4 H Eos % (Auto) 1.0 Baso % (Auto) 0.4 Lymph # 1.5 [place] # 1.3 H Eos # 0.1 Baso # 0.0 Seg Neutrophils % 74.3 H Seg Neutrophils # 8.4 H PT 14.9 INR 1.11 Sodium 159 H D Potassium 3.9 Chloride 109.9 H Carbon Dioxide 37 H Anion Gap 16 BUN 17 Creatinine 0.9 Estimated GFR > 60 BUN/Creatinine Ratio 19 Glucose 86 Calcium 7.9 L
--- NOTE | 2017-08-12 16:37 | Progress Note ---
Assessment and Plan Assessment and plan: 82 year old -Thai female with medical history significant for dementia, HIV/AIDS, A. fib on anticoagulation was brought to the emergency department for the complains of shortness of breath. In the emergency department chest x-ray was done and showed pulmonary congestion, elevated creatinine Congestive heart failure - Diastolic CHF - Patient is on IV Lasix - Blood pressure is marginal and couldn't tolerate any other blood pressure medication Cor pulmonale - Pulmonary consulted Atrial fibrillation - Held Coumadin because of GI bleed TREY - Resolved Hypokalemia - will replace and check in the morning Dementia - supportive care HIV/AIDS - Restart home medication GI bleed - Gl was consulted and they did EGD and showed 2 deep ulcers with fibrous base, no active bleeding - ON Pantoprazole drip - Advance diet Hypernatremia - D5W DVT prophylaxis - SCDs because of GI bleed Disposition -Continue inpatient care History Interval history: Patient has severe dementia and she she answer yes to every question. Hospitalist Physical - Physical exam Narrative exam: Not in cardiopulmonary distress. The patient is morbidly obese. Vital signs as documented. Head exam is unremarkable. No scleral icterus . Neck is without jugular venous distension, thyromegaly, or carotid bruits. Lungs are clear to auscultation. Cardiac exam reveals irregular rate and Rhythm. Abdominal exam reveals normal bowel sounds. Extremities are nonedematous and both femoral and pedal pulses are normal. ORTHOPEDIC DENTIST: Alert and not oriented. No focal weakness. - Constitutional Vitals: Temp Pulse Resp BP Pulse Ox 98.4 F 81 20 105/62 92 08/12/17 08:00 08/12/17 09:44 08/12/17 08:00 08/12/17 09:44 08/12/17 09:55 General appearance: Present: no acute distress Results - Labs CBC & Chem 7: 08/12/17 07:29 08/12/17 07:29 Labs: Laboratory Last Values WBC 11.3 K/mm3 (4.5-11.0) H 08/12/17 07:29 RBC 3.17 M/mm3 (3.65-5.03) L 08/12/17 07:29 Hgb 8.2 gm/dl (10.1-14.3) L 08/12/17 07:29 Hct 26.5 % (30.3-42.9) L 08/12/17 07: MCV 84 fl (79-97) 08/12/17 07: MCH 26 pg (28-32) L 08/12/17 07: MCHC 31 % (30-34) 08/12/17 07: RDW 16.9 % (13.2-15.2) H 08/12/17 07:29 Plt Count 147 K/mm3 (140-440) 08/12/17 07: Lymph % (Auto) 12.9 % (13.4-35.0) L 08/12/17 07: [place] % (Auto) 11.4 % (0.0-7.3) H 08/12/17 07: Eos % (Auto) 1.0 % (0.0-4.3) 08/12/17 07: Baso % (Auto) 0.4 % (0.0-1.8) 08/12/17 07: Lymph # 1.5 K/mm3 (1.2-5.4) 08/12/17 07: [place] # 1.3 K/mm3 (0.0-0.8) H 08/12/17 07: Eos # 0.1 K/mm3 (0.0-0.4) 08/12/17 07: Baso # 0.0 K/mm3 (0.0-0.1) 08/12/17 07:29 Add Manual Diff Complete 08/06/17 00:21 Total Counted 100 08/06/17 00:21 Seg Neutrophils % 74.3 % (40.0-70.0) H 08/12/17 07:29 Seg Neuts % (Manual) 84.0 % (40.0-70.0) H 08/06/17 00:21 Band Neutrophils % 2.0 % 08/06/17 00:21 Lymphocytes % (Manual) 6.0 % (13.4-35.0) L 08/06/17 00:21 Reactive Lymphs % (Man) 0 % 08/06/17 00:21 Monocytes % (Manual) 7.0 % (0.0-7.3) 08/06/17 00:21 Eosinophils % (Manual) 0 % (0.0-4.3) 08/06/17 00:21 Basophils % (Manual) 0 % (0.0-1.8) 08/06/17 00:21 Metamyelocytes % 0 % 08/06/17 00:21 Myelocytes % 1.0 % 08/06/17 00:21 Promyelocytes % 0 % 08/06/17 00:21 Blast Cells % 0 % 08/06/17 00:21 Nucleated RBC % 4.0 % (0.0-0.9) H 08/06/17 00:21 Seg Neutrophils # 8.4 K/mm3 (1.8-7.7) H 08/12/17 07:29 Seg Neutrophils # Man 8.1 K/mm3 (1.8-7.7) H 08/06/17 00:21 Band Neutrophils # 0.2 K/mm3 08/06/17 00:21 Lymphocytes # (Manual) 0.6 K/mm3 (1.2-5.4) L 08/06/17 00:21 Abs React Lymphs (Man) 0.0 K/mm3 08/06/17 00:21 Monocytes # (Manual) 0.7 K/mm3 (0.0-0.8) 08/06/17 00:21 Eosinophils # (Manual) 0.0 K/mm3 (0.0-0.4) 08/06/17 00:21 Basophils # (Manual) 0.0 K/mm3 (0.0-0.1) 08/06/17 00:21 Metamyelocytes # 0.0 K/mm3 08/06/17 00:21 Myelocytes # 0.1 K/mm3 08/06/17 00:21 Promyelocytes # 0.0 K/mm3 08/06/17 00:21 Blast Cells # 0.0 K/mm3 08/06/17 00:21 WBC Morphology Not Reportable 08/06/17 00:21 Hypersegmented Neuts Not Reportable 08/06/17 00:21 Hyposegmented Neuts Not Reportable 08/06/17 00:21 Hypogranular Neuts Not Reportable 08/06/17 00:21 Smudge Cells Not Reportable 08/06/17 00:21 Toxic Granulation Not Reportable 08/06/17 00:21 Toxic Vacuolation Not Reportable 08/06/17 00:21 Dohle Bodies Not Reportable 08/06/17 00:21 Pelger-Huet Anomaly Not Reportable 08/06/17 00:21 Bryant Rods Not Reportable 08/06/17 00:21 Platelet Estimate Consistent w auto 08/06/17 00:21 Clumped Platelets Not Reportable 08/06/17 00:21 Plt Clumps, EDTA Not Reportable 08/06/17 00:21 Large Platelets Not Reportable 08/06/17 00:21 Giant Platelets Not Reportable 08/06/17 00:21 Platelet Satelliting Not Reportable 08/06/17 00:21 Plt Morphology Comment Not Reportable 08/06/17 00:21 RBC Morphology Not Reportable 08/06/17 00:21 Dimorphic RBCs Not Reportable 08/06/17 00:21 Polychromasia Not Reportable 08/06/17 00:21 Hypochromasia 1+ 08/06/17 00:21 Poikilocytosis Not Reportable 08/06/17 00:21 Anisocytosis Not Reportable 08/06/17 00:21 Microcytosis Not Reportable 08/06/17 00:21 Macrocytosis Not Reportable 08/06/17 00:21 Spherocytes Not Reportable 08/06/17 00:21 Pappenheimer Bodies Not Reportable 08/06/17 00:21 Sickle Cells Not Reportable 08/06/17 00:21 Target Cells Few 08/06/17 00:21 Tear Drop Cells Not Reportable 08/06/17 00:21 Ovalocytes Not Reportable 08/06/17 00:21 Helmet Cells Not Reportable 08/06/17 00:21 [place] Bodies Not Reportable 08/06/17 00:21 [place] Rings Not Reportable 08/06/17 00:21 [place] Cells Not Reportable 08/06/17 00:21 Bite Cells Not Reportable 08/06/17 00:21 Crenated Cell Not Reportable 08/06/17 00:21 Elliptocytes Not Reportable 08/06/17 00:21 Acanthocytes (Spur) Not Reportable 08/06/17 00:21 Rouleaux Not Reportable 08/06/17 00:21 Hemoglobin C Crystals Not Reportable 08/06/17 00:21 Schistocytes Not Reportable 08/06/17 00:21 Malaria parasites Not Reportable 08/06/17 00:21 [place] Bodies Not Reportable 08/06/17 00:21 Hem Pathologist Commnt No 08/06/17 00:21 PT 14.9 Sec. (12.2-14.9) 08/12/17 07:29 INR 1.11 (0.87-1.13) 08/12/17 07:29 APTT 24.2 Sec. (24.2-36.6) 08/06/17 00:21 D-Dimer 765.25 ng/mlDDU (0-234) H 08/06/17 00:21 POC ABG pH 7.625 (7.35-7.45) H 08/09/17 12:46 POC ABG pCO2 45.7 (35-45) H 08/09/17 12:46 POC ABG pO2 30 (80-105) L 08/09/17 12:46 POC ABG HCO3 47.5 08/09/17 12:46 POC ABG Total CO2 49 08/09/17 12:46 POC ABG O2 Sat 69 08/09/17 12:46 POC ABG Base Excess 26 08/09/17 12:46 FiO2 21 % 08/09/17 12:46 Sodium 159 mmol/L (137-145) H D 08/12/17 07:29 Potassium 3.9 mmol/L (3.6-5.0) 08/12/17 07:29 Chloride 109.9 mmol/L (98-107) H 08/12/17 07:29 Carbon Dioxide 37 mmol/L (22-30) H 08/12/17 07:29 Anion Gap 16 mmol/L 08/12/17 07:29 BUN 17 mg/dL (7-17) 08/12/17 07:29 Creatinine 0.9 mg/dL (0.7-1.2) 08/12/17 07:29 Estimated GFR > 60 ml/min 08/12/17 07:29 BUN/Creatinine Ratio 19 % 08/12/17 07:29 Glucose 86 mg/dL (65-100) 08/12/17 07:29 Calcium 7.9 mg/dL (8.4-10.2) L 08/12/17 07:29 Total Creatine Kinase 37 units/L (30-135) 08/06/17 12:45 CK-MB (CK-2) < 1.0 ng/mL (0.0-4.0) 08/06/17 12:45 CK-MB (CK-2) Rel Index 2.7 (0-4) 08/06/17 12:45 Troponin T < 0.010 ng/mL (0.00-0.029) 08/06/17 12:45 Blood Type A POSITIVE 08/09/17 19:52 Antibody Screen Negative 08/09/17 19:52 Crossmatch See Detail 08/09/17 19:52
[2017-08-13] MEDS: PROTONIX 80 MG in NACL 0.9% 100 ML IV SCH (00:11)
[2017-08-13] MEDS: SODIUM CHLORIDE FLUSH SYRINGE 10 ML IV SCH ×4 (00:13→22:22)
[2017-08-13] MEDS: LOPRESSOR PO SCH ×3 (00:17→22:22)
[2017-08-13 08:05] LABS: Hemoglobin 8.3 gm/dl (10.1-14.3)
[2017-08-13 08:12] LABS: INR 1.01 (0.87-1.13)
[2017-08-13 08:18] LABS: BUN/Creatinine Ratio 13; Blood Urea Nitrogen 13 mg/dL (7-17); Calcium 7.4 mg/dL (8.4-10.2); Hemolysis Index 5
[2017-08-13] MEDS ORDERED: POTASSIUM CHLORIDE FEEDTUBE ONE ×2 (09:21→12:00)
--- NOTE | 2017-08-13 09:28 | Progress Note ---
Assessment and Plan 1. Chronic atrial fibrillation with controlled ventricular response 2. Chronic cor pulmonale with right sided heart failure and severe pulmonary hypertension. 3. History of HIV 4. Obesity 5. Obstructive sleep apnea Plan. Patient is undergoing GI workup for anemia anticoagulation on hold. Subjective Date of service: 08/13/17 Principal diagnosis: CHF Interval history: No cardiac symptoms wants to go home Objective Vital Signs Temp Pulse Resp BP BP Pulse Ox 08/13/17 05:31 98.9 F 69 20 100/59 100 08/13/17 01:34 97.6 F 64 18 121/68 99 08/13/17 00:44 20 08/12/17 22:00 96 08/12/17 20:09 98.6 F 68 20 101/50 99 08/12/17 20:00 68 08/12/17 16:35 85 18 102/58 100 08/12/17 16:00 98.2 F 08/12/17 13:00 88 08/12/17 11:49 75 20 97 08/12/17 09:55 92 08/12/17 09:44 81 105/62 - Physical Examination General: Appears Well, No Apparent Distress, Other (obese) HEENT: Positive: PERRL, Normocephaly Neck: Positive: neck supple. Negative: JVD/HJR Cardiac: Positive: Regular Rate, S1/S2, PMI, Laterally Displaced Lungs: Positive: clear to auscultation, No Wheeze, Rales, Rhonchi Neuro: Positive: Grossly Intact Abdomen: Positive: Unremarkable, Soft Skin: Positive: Clear Extremities: Present: edema (trace) - Labs and Meds Coagulation 08/13/17 Range/Units 07:34 PT 13.8 (12.2-14.9) Sec. INR 1.01 (0.87-1.13) CBC 08/13/17 Range/Units 07:34 Hgb 8.3 L (10.1-14.3) gm/dl Hct 25.0 L (30.3-42.9) % Comprehensive Metabolic Panel 08/13/17 Range/Units 07:34 Sodium 139 D (137-145) mmol/L Potassium 2.9 L* D (3.6-5.0) mmol/L Chloride 93.6 L (98-107) mmol/L Carbon Dioxide 38 H (22-30) mmol/L BUN 13 (7-17) mg/dL Creatinine 1.0 (0.7-1.2) mg/dL Glucose 124 H (65-100) mg/dL Calcium 7.4 L (8.4-10.2) mg/dL - Imaging and Cardiology EKG: image reviewed - Telemetry EKG Rhythm: Sinus Rhythm
[2017-08-13] MEDS: PROTONIX PO SCH ×2 (11:51→22:22)
[2017-08-13] MEDS: ZIAGEN PO SCH (12:19)
[2017-08-13] MEDS: PREZISTA PO SCH (12:19)
[2017-08-13] MEDS: TIVICAY (NF) PO SCH (12:40)
--- NOTE | 2017-08-13 13:06 | Progress Note ---
Assessment and Plan Chronic atrial fibrillation with controlled ventricular response Chronic cor pulmonale Severe pulmonary hypertension. Both group 2, 3 findings per ABG/echocardiogram History of HIV. PAH is also a consideration. No recent heart catheterization data Dementia Morbid obesity Obesity hypoventilation syndrome. Patient with hypercapnia on presentation Obstructive sleep apnea Recommendations Continue oxygen during daytime. Avoid sustained hypoxemia, especially at nighttime Continue BiPAP at nighttime. If there is no prior sleep study data, she will need an outpatient sleep study evaluation. This assuming patient is able to comply with CPAP therapy The patient is not able to comply with CPAP/BiPAP treatment due to dementia problems, recommend to use support oxygen nighttime Outpatient pulmonary hypertension/PAH workup Follow-up in cardiology recommendations DVT prophylaxis May give empirically Spiriva respiratory inhaler 1-2 inhalations daily, if any history of smoking exposure in the past. Outpatient PFT for COPD evaluation Subjective Date of service: 08/13/17 Principal diagnosis: CHF, HIV, severe morbid obesity, pulmonary hypertension Interval history: Reports no respiratory complaints at this time. Objective Vital Signs - 12hr 08/13/17 08/13/17 08/13/17 01:34 05:31 09:03 Temperature 97.6 F 98.9 F 97.9 F Pulse Rate 64 69 72 Respiratory 18 20 18 Rate Blood Pressure 107/59 Blood Pressure 121/68 100/59 [Left] O2 Sat by Pulse 99 100 98 Oximetry 08/13/17 11:54 Temperature Pulse Rate 72 Respiratory Rate Blood Pressure 107/59 Blood Pressure [Left] O2 Sat by Pulse Oximetry Constitutional: no acute distress, other (morbidly obese) ENT: oropharynx moist Neck: no JVD Ascultation: Bilateral: clear, diminished breath sounds Percussion: Bilateral: not dull Cardiovascular: regular rate and rhythm Gastrointestinal: other (obese) Extremities: no cyanosis, no edema, pink and warm Neurologic: normal mental status, non-focal exam, pupils equal and round, CN II- XII normal Psychiatric: mood appropriate CBC and BMP: 08/13/17 07:34 08/13/17 07:34 ABG, PT/INR, D-dimer: ABG POC ABG pH 7.625 (7.35-7.45) H 08/09/17 12:46 POC ABG pCO2 45.7 (35-45) H 08/09/17 12:46 POC ABG pO2 30 (80-105) L 08/09/17 12:46 POC ABG HCO3 47.5 08/09/17 12:46 POC ABG Total CO2 49 08/09/17 12:46 POC ABG O2 Sat 69 08/09/17 12:46 PT/INR, D-dimer PT 13.8 Sec. (12.2-14.9) 08/13/17 07:34 INR 1.01 (0.87-1.13) 08/13/17 07:34 D-Dimer 765.25 ng/mlDDU (0-234) H 08/06/17 00:21 Abnormal lab findings: Abnormal Labs 08/06/17 08/06/17 08/06/17 00:15 00:21 00:21 WBC RBC Hgb Hct MCH 26 L RDW 18.0 H Lymph % (Auto) [place] % (Auto) Lymph # [place] # Seg Neutrophils % Seg Neuts % (Manual) 84.0 H Lymphocytes % (Manual) 6.0 L Nucleated RBC % 4.0 H Seg Neutrophils # Seg Neutrophils # Man 8.1 H Lymphocytes # (Manual) 0.6 L PT D-Dimer POC ABG pH POC ABG pCO2 57.0 H POC ABG pO2 41 L Sodium Potassium Chloride 94.5 L Carbon Dioxide 32 H BUN 33 H Creatinine 2.4 H Glucose 128 H Calcium Crossmatch 08/06/17 08/07/17 08/07/17 00:21 06:38 06:38 WBC RBC Hgb 10.0 L Hct MCH 26 L RDW 17.5 H Lymph % (Auto) 9.0 L [place] % (Auto) 12.5 H Lymph # 0.8 L [place] # 1.2 H Seg Neutrophils % 78.2 H Seg Neuts % (Manual) Lymphocytes % (Manual) Nucleated RBC % Seg Neutrophils # Seg Neutrophils # Man Lymphocytes # (Manual) PT D-Dimer 765.25 H POC ABG pH POC ABG pCO2 POC ABG pO2 Sodium Potassium 5.5 H D Chloride Carbon Dioxide 31 H BUN 41 H Creatinine 1.7 H Glucose Calcium Crossmatch 08/08/17 08/08/17 08/08/17 06:36 06:36 10:06 WBC 11.2 H RBC 3.47 L Hgb 8.9 L Hct 28.6 L MCH 26 L RDW 17.3 H Lymph % (Auto) 10.2 L [place] % (Auto) 10.9 H Lymph # 1.1 L [place] # 1.2 H Seg Neutrophils % 78.3 H Seg Neuts % (Manual) Lymphocytes % (Manual) Nucleated RBC % Seg Neutrophils # 8.8 H Seg Neutrophils # Man Lymphocytes # (Manual) PT D-Dimer POC ABG pH 7.520 H POC ABG pCO2 59.5 H POC ABG pO2 59 L Sodium 150 H D Potassium Chloride Carbon Dioxide 41 H* D BUN 32 H Creatinine Glucose 124 H Calcium Crossmatch 08/09/17 08/09/17 08/09/17 06:11 12:46 16:32 WBC 12.6 H 12.0 H RBC 3.05 L 2.88 L Hgb 7.9 L 7.5 L Hct 24.9 L 23.3 L MCH 26 L 26 L RDW 17.2 H 17.5 H Lymph % (Auto) 8.8 L [place] % (Auto) 14.9 H Lymph # 1.1 L [place] # 1.8 H Seg Neutrophils % 76.3 H Seg Neuts % (Manual) Lymphocytes % (Manual) Nucleated RBC % Seg Neutrophils # 9.1 H Seg Neutrophils # Man Lymphocytes # (Manual) PT D-Dimer POC ABG pH 7.625 H POC ABG pCO2 45.7 H POC ABG pO2 30 L Sodium Potassium Chloride Carbon Dioxide BUN Creatinine Glucose Calcium Crossmatch 08/09/17 08/09/17 08/10/17 16:32 19:52 01:00 WBC RBC Hgb 6.9 L Hct 21.7 L MCH RDW Lymph % (Auto) [place] % (Auto) Lymph # [place] # Seg Neutrophils % Seg Neuts % (Manual) Lymphocytes % (Manual) Nucleated RBC % Seg Neutrophils # Seg Neutrophils # Man Lymphocytes # (Manual) PT D-Dimer POC ABG pH POC ABG pCO2 POC ABG pO2 Sodium 153 H Potassium Chloride Carbon Dioxide 45 H* BUN 33 H Creatinine Glucose 109 H Calcium Crossmatch See Detail 08/10/17 08/10/17 08/10/17 07:02 07:02 07:02 WBC RBC 3.14 L Hgb 8.2 L Hct 25.8 L MCH 26 L RDW 17.1 H Lymph % (Auto) [place] % (Auto) 11.8 H Lymph # [place] # 1.2 H Seg Neutrophils % 73.8 H Seg Neuts % (Manual) Lymphocytes % (Manual) Nucleated RBC % Seg Neutrophils # Seg Neutrophils # Man Lymphocytes # (Manual) PT 15.0 H D-Dimer POC ABG pH POC ABG pCO2 POC ABG pO2 Sodium 152 H Potassium 3.5 L Chloride Carbon Dioxide 44 H* BUN 21 H Creatinine Glucose 111 H Calcium 8.1 L Crossmatch 08/10/17 08/10/17 08/11/17 17:16 21:20 07:51 WBC RBC 3.09 L Hgb 8.7 L 8.2 L 8.2 L Hct 27.0 L 25.6 L 25.7 L MCH 27 L RDW 16.7 H Lymph % (Auto) [place] % (Auto) 12.1 H Lymph # [place] # 1.2 H Seg Neutrophils % 73.1 H Seg Neuts % (Manual) Lymphocytes % (Manual) Nucleated RBC % Seg Neutrophils # Seg Neutrophils # Man Lymphocytes # (Manual) PT D-Dimer POC ABG pH POC ABG pCO2 POC ABG pO2 Sodium Potassium Chloride Carbon Dioxide BUN Creatinine Glucose Calcium Crossmatch 08/11/17 08/12/17 08/12/17 07:51 07:29 07:29 WBC 11.3 H RBC 3.17 L Hgb 8.2 L Hct 26.5 L MCH 26 L RDW 16.9 H Lymph % (Auto) 12.9 L [place] % (Auto) 11.4 H Lymph # [place] # 1.3 H Seg Neutrophils % 74.3 H Seg Neuts % (Manual) Lymphocytes % (Manual) Nucleated RBC % Seg Neutrophils # 8.4 H Seg Neutrophils # Man Lymphocytes # (Manual) PT D-Dimer POC ABG pH POC ABG pCO2 POC ABG pO2 Sodium 149 H 159 H D Potassium Chloride 109.9 H Carbon Dioxide 40 H 37 H BUN Creatinine Glucose Calcium 8.0 L 7.9 L Crossmatch 08/13/17 08/13/17 07:34 07:34 WBC RBC Hgb 8.3 L Hct 25.0 L MCH RDW Lymph % (Auto) [place] % (Auto) Lymph # [place] # Seg Neutrophils % Seg Neuts % (Manual) Lymphocytes % (Manual) Nucleated RBC % Seg Neutrophils # Seg Neutrophils # Man Lymphocytes # (Manual) PT D-Dimer POC ABG pH POC ABG pCO2 POC ABG pO2 Sodium Potassium 2.9 L* D Chloride 93.6 L Carbon Dioxide 38 H BUN Creatinine Glucose 124 H Calcium 7.4 L Crossmatch
--- NOTE | 2017-08-13 15:31 | Progress Note ---
Assessment and Plan Assessment and plan: 82 year old -[place] female with medical history significant for dementia, HIV/AIDS, A. fib on anticoagulation was brought to the emergency department for the complains of shortness of breath. In the emergency department chest x-ray was done and showed pulmonary congestion, elevated creatinine Congestive heart failure - Diastolic CHF - Patient is on IV Lasix - Blood pressure is marginal and couldn't tolerate any other blood pressure medication Cor pulmonale - Pulmonary consulted Atrial fibrillation - Held Coumadin because of GI bleed TREY - Resolved Hypokalemia - will replace and check potassium Dementia - supportive care HIV/AIDS - Restart home medication GI bleed - Gl was consulted and they did EGD and showed 2 deep ulcers with fibrous base, no active bleeding - ON Pantoprazole drip - Advance diet Hypernatremia - Resolved DVT prophylaxis - SCDs because of GI bleed Disposition -Continue inpatient care History Interval history: Patient has severe dementia and she answer yes to every question. Hospitalist Physical - Physical exam Narrative exam: Not in cardiopulmonary distress. The patient is morbidly obese. Vital signs as documented. Head exam is unremarkable. No scleral icterus . Neck is without jugular venous distension, thyromegaly, or carotid bruits. Lungs are clear to auscultation. Cardiac exam reveals irregular rate and Rhythm. Abdominal exam reveals normal bowel sounds. Extremities are nonedematous and both femoral and pedal pulses are normal. VENDING TECHNICIAN: Alert and not oriented. No focal weakness. - Constitutional Vitals: Temp Pulse Resp BP Pulse Ox 97.9 F 72 18 107/59 98 08/13/17 09:03 08/13/17 11:54 08/13/17 09:03 08/13/17 11:54 08/13/17 09:03 General appearance: Present: no acute distress Results - Labs CBC & Chem 7: 08/13/17 07:34 08/13/17 07:34 Labs: Laboratory Last Values WBC 11.3 K/mm3 (4.5-11.0) H 08/12/17 07:29 RBC 3.17 M/mm3 (3.65-5.03) L 08/12/17 07:29 Hgb 8.3 gm/dl (10.1-14.3) L 08/13/17 07:34 Hct 25.0 % (30.3-42.9) L 08/13/17 07:34 MCV 84 fl (79-97) 08/12/17 07:29 MCH 26 pg (28-32) L 08/12/17 07:29 MCHC 31 % (30-34) 08/12/17 07: RDW 16.9 % (13.2-15.2) H 08/12/17 07:29 Plt Count 147 K/mm3 (140-440) 08/12/17 07:29 Lymph % (Auto) 12.9 % (13.4-35.0) L 08/12/17 07:29 [place] % (Auto) 11.4 % (0.0-7.3) H 08/12/17 07:29 Eos % (Auto) 1.0 % (0.0-4.3) 08/12/17 07: Baso % (Auto) 0.4 % (0.0-1.8) 08/12/17 07: Lymph # 1.5 K/mm3 (1.2-5.4) 08/12/17 07: [place] # 1.3 K/mm3 (0.0-0.8) H 08/12/17 07:29 Eos # 0.1 K/mm3 (0.0-0.4) 08/12/17 07:29 Baso # 0.0 K/mm3 (0.0-0.1) 08/12/17 07:29 Add Manual Diff Complete 08/06/17 00:21 Total Counted 100 08/06/17 00:21 Seg Neutrophils % 74.3 % (40.0-70.0) H 08/12/17 07:29 Seg Neuts % (Manual) 84.0 % (40.0-70.0) H 08/06/17 00:21 Band Neutrophils % 2.0 % 08/06/17 00:21 Lymphocytes % (Manual) 6.0 % (13.4-35.0) L 08/06/17 00:21 Reactive Lymphs % (Man) 0 % 08/06/17 00:21 Monocytes % (Manual) 7.0 % (0.0-7.3) 08/06/17 00:21 Eosinophils % (Manual) 0 % (0.0-4.3) 08/06/17 00:21 Basophils % (Manual) 0 % (0.0-1.8) 08/06/17 00:21 Metamyelocytes % 0 % 08/06/17 00:21 Myelocytes % 1.0 % 08/06/17 00:21 Promyelocytes % 0 % 08/06/17 00:21 Blast Cells % 0 % 08/06/17 00:21 Nucleated RBC % 4.0 % (0.0-0.9) H 08/06/17 00:21 Seg Neutrophils # 8.4 K/mm3 (1.8-7.7) H 08/12/17 07:29 Seg Neutrophils # Man 8.1 K/mm3 (1.8-7.7) H 08/06/17 00:21 Band Neutrophils # 0.2 K/mm3 08/06/17 00:21 Lymphocytes # (Manual) 0.6 K/mm3 (1.2-5.4) L 08/06/17 00:21 Abs React Lymphs (Man) 0.0 K/mm3 08/06/17 00:21 Monocytes # (Manual) 0.7 K/mm3 (0.0-0.8) 08/06/17 00:21 Eosinophils # (Manual) 0.0 K/mm3 (0.0-0.4) 08/06/17 00:21 Basophils # (Manual) 0.0 K/mm3 (0.0-0.1) 08/06/17 00:21 Metamyelocytes # 0.0 K/mm3 08/06/17 00:21 Myelocytes # 0.1 K/mm3 08/06/17 00:21 Promyelocytes # 0.0 K/mm3 08/06/17 00:21 Blast Cells # 0.0 K/mm3 08/06/17 00:21 WBC Morphology Not Reportable 08/06/17 00:21 Hypersegmented Neuts Not Reportable 08/06/17 00:21 Hyposegmented Neuts Not Reportable 08/06/17 00:21 Hypogranular Neuts Not Reportable 08/06/17 00:21 Smudge Cells Not Reportable 08/06/17 00:21 Toxic Granulation Not Reportable 08/06/17 00:21 Toxic Vacuolation Not Reportable 08/06/17 00:21 Dohle Bodies Not Reportable 08/06/17 00:21 Pelger-Huet Anomaly Not Reportable 08/06/17 00:21 Bryant Rods Not Reportable 08/06/17 00:21 Platelet Estimate Consistent w auto 08/06/17 00:21 Clumped Platelets Not Reportable 08/06/17 00:21 Plt Clumps, EDTA Not Reportable 08/06/17 00:21 Large Platelets Not Reportable 08/06/17 00:21 Giant Platelets Not Reportable 08/06/17 00:21 Platelet Satelliting Not Reportable 08/06/17 00:21 Plt Morphology Comment Not Reportable 08/06/17 00:21 RBC Morphology Not Reportable 08/06/17 00:21 Dimorphic RBCs Not Reportable 08/06/17 00:21 Polychromasia Not Reportable 08/06/17 00:21 Hypochromasia 1+ 08/06/17 00:21 Poikilocytosis Not Reportable 08/06/17 00:21 Anisocytosis Not Reportable 08/06/17 00:21 Microcytosis Not Reportable 08/06/17 00:21 Macrocytosis Not Reportable 08/06/17 00:21 Spherocytes Not Reportable 08/06/17 00:21 Pappenheimer Bodies Not Reportable 08/06/17 00:21 Sickle Cells Not Reportable 08/06/17 00:21 Target Cells Few 08/06/17 00:21 Tear Drop Cells Not Reportable 08/06/17 00:21 Ovalocytes Not Reportable 08/06/17 00:21 Helmet Cells Not Reportable 08/06/17 00:21 [place] Bodies Not Reportable 08/06/17 00:21 [place] Rings Not Reportable 08/06/17 00:21 [place] Cells Not Reportable 08/06/17 00:21 Bite Cells Not Reportable 08/06/17 00:21 Crenated Cell Not Reportable 08/06/17 00:21 Elliptocytes Not Reportable 08/06/17 00:21 Acanthocytes (Spur) Not Reportable 08/06/17 00:21 Rouleaux Not Reportable 08/06/17 00:21 Hemoglobin C Crystals Not Reportable 08/06/17 00:21 Schistocytes Not Reportable 08/06/17 00:21 Malaria parasites Not Reportable 08/06/17 00:21 Carlo Bodies Not Reportable 08/06/17 00:21 Hem Pathologist Commnt No 08/06/17 00:21 PT 13.8 Sec. (12.2-14.9) 08/13/17 07:34 INR 1.01 (0.87-1.13) 08/13/17 07:34 APTT 24.2 Sec. (24.2-36.6) 08/06/17 00:21 D-Dimer 765.25 ng/mlDDU (0-234) H 08/06/17 00:21 POC ABG pH 7.625 (7.35-7.45) H 08/09/17 12:46 POC ABG pCO2 45.7 (35-45) H 08/09/17 12:46 POC ABG pO2 30 (80-105) L 08/09/17 12:46 POC ABG HCO3 47.5 08/09/17 12:46 POC ABG Total CO2 49 08/09/17 12:46 POC ABG O2 Sat 69 08/09/17 12:46 POC ABG Base Excess 26 08/09/17 12:46 FiO2 21 % 08/09/17 12:46 Sodium 139 mmol/L (137-145) D 08/13/17 07:34 Potassium 2.9 mmol/L (3.6-5.0) L* D 08/13/17 07:34 Chloride 93.6 mmol/L (98-107) L 08/13/17 07:34 Carbon Dioxide 38 mmol/L (22-30) H 08/13/17 07:34 Anion Gap 10 mmol/L 08/13/17 07:34 BUN 13 mg/dL (7-17) 08/13/17 07:34 Creatinine 1.0 mg/dL (0.7-1.2) 08/13/17 07:34 Estimated GFR > 60 ml/min 08/13/17 07:34 BUN/Creatinine Ratio 13 % 08/13/17 07:34 Glucose 124 mg/dL (65-100) H 08/13/17 07:34 Calcium 7.4 mg/dL (8.4-10.2) L 08/13/17 07:34 Total Creatine Kinase 37 units/L (30-135) 08/06/17 12:45 CK-MB (CK-2) < 1.0 ng/mL (0.0-4.0) 08/06/17 12:45 CK-MB (CK-2) Rel Index 2.7 (0-4) 08/06/17 12:45 Troponin T < 0.010 ng/mL (0.00-0.029) 08/06/17 12:45 Blood Type A POSITIVE 08/09/17 19:52 Antibody Screen Negative 08/09/17 19:52 Crossmatch See Detail 08/09/17 19:52
[2017-08-13] MEDS: LASIX IV SCH (19:32)
[2017-08-14] MEDS: LASIX IV SCH ×3 (05:35→18:18)
[2017-08-14 08:31] LABS: Basophils % (Auto) 0.2 % (0.0-1.8); Eosinophils # (Auto) 0.1 K/mm3 (0.0-0.4); Eosinophils % (Auto) 1.6 % (0.0-4.3); Hematocrit 26.3 % (30.3-42.9); Hemoglobin 8.6 gm/dl (10.1-14.3); Lymphocytes # (Auto) 1.5 K/mm3 (1.2-5.4); Lymphocytes % (Auto) 15.6 % (13.4-35.0); Mean Corpuscular HGB Conc 33 % (30-34); Mean Corpuscular Hemoglobin 27 pg (28-32); Mean Corpuscular Volume 81 fl (79-97); Monocytes # (Auto) 1.1 K/mm3 (0.0-0.8); Monocytes % (Auto) 11.9 % (0.0-7.3); Platelet Count 157 K/mm3 (140-440); Red Blood Count 3.25 M/mm3 (3.65-5.03); Red Cell Distribution Width 16.8 % (13.2-15.2)
[2017-08-14 08:44] LABS: INR 1.01 (0.87-1.13)
[2017-08-14 08:47] LABS: BUN/Creatinine Ratio 16; Blood Urea Nitrogen 14 mg/dL (7-17); Calcium 7.7 mg/dL (8.4-10.2); Hemolysis Index 25
[2017-08-14] MEDS: LOPRESSOR PO SCH ×2 (10:08→21:38)
[2017-08-14] MEDS: ZIAGEN PO SCH (10:09)
[2017-08-14] MEDS: TIVICAY (NF) PO SCH (10:10)
[2017-08-14] MEDS: PREZISTA PO SCH (10:10)
[2017-08-14] MEDS: PROTONIX PO SCH ×2 (10:10→21:38)
[2017-08-14] MEDS: SODIUM CHLORIDE FLUSH SYRINGE 10 ML IV SCH ×2 (10:50→21:38)
--- NOTE | 2017-08-14 11:23 | Progress Note ---
Assessment and Plan Pulmonary edema ventilation perfusion study of the lungs was negative for pulmonary embolism. Chronic Atrial fibrillation, rate control Warfarin discontinued due to anemia requiring blood transfusion Acute renal failure -resolved Anemia s/p PRBC transfusion EGD- 2 large, duodenal bulb ulcers Hx of HIV infection Echocardiogram shows severe dilatation of the right heart chambers, moderate tricuspid regurgitation, and moderate pulmonary hypertension with pulmonary artery systolic pressures of 55 mmHg. Findings are consistent with chronic cor pulmonale. In addition to right heart findings, there is marked dilatation of the left atrium. There is at least mild to moderate mitral regurgitation. Left ventricular chamber size and systolic function are normal with an ejection fraction of 55%. Continue rate controlling agents for chronic atrial fibrillation. Otherwise, conservative cardiac management. Subjective Date of service: 08/14/17 Principal diagnosis: CHF, HIV, severe morbid obesity, pulmonary hypertension Interval history: Patient is resting in bed comfortably. She denies shortness of breath. Family member at bedside. Objective Vital Signs Temp Pulse Resp BP BP Pulse Ox 08/14/17 10:08 86 104/58 08/14/17 10:00 98 08/14/17 08:18 98.1 F 73 18 104/58 98 08/14/17 05:07 98.1 F 74 18 96/53 91 08/14/17 00:00 98.3 F 75 18 105/49 93 08/13/17 22:00 18 98 08/13/17 21:59 68 27 H 98 08/13/17 19:21 97.8 F 77 18 111/44 99 08/13/17 16:58 98.6 F 18 102/61 08/13/17 12:08 71 112/53 90 08/13/17 11:54 72 107/59 - Physical Examination General: No Apparent Distress HEENT: Positive: PERRL Cardiac: Positive: irregularly irregular Extremities: Absent: edema - Labs and Meds Coagulation 08/14/17 Range/Units 06:54 PT 13.8 (12.2-14.9) Sec. INR 1.01 (0.87-1.13) CBC 08/14/17 Range/Units 06:54 WBC 9.3 (4.5-11.0) K/mm3 RBC 3.25 L (3.65-5.03) M/mm3 Hgb 8.6 L (10.1-14.3) gm/dl Hct 26.3 L (30.3-42.9) % Plt Count 157 (140-440) K/mm3 Lymph # 1.5 (1.2-5.4) K/mm3 [place] # 1.1 H (0.0-0.8) K/mm3 Eos # 0.1 (0.0-0.4) K/mm3 Baso # 0.0 (0.0-0.1) K/mm3 Comprehensive Metabolic Panel 08/13/17 08/14/17 Range/Units 15:49 06:54 Sodium 139 (137-145) mmol/L Potassium 3.4 L 3.3 L (3.6-5.0) mmol/L Chloride 96.1 L (98-107) mmol/L Carbon Dioxide 37 H (22-30) mmol/L BUN 14 (7-17) mg/dL Creatinine 0.9 (0.7-1.2) mg/dL Glucose 96 (65-100) mg/dL Calcium 7.7 L (8.4-10.2) mg/dL
--- NOTE | 2017-08-14 11:24 | Progress Note ---
Assessment and Plan Pulmonary edema - resolved ventilation perfusion study of the lungs was negative for pulmonary embolism. Chronic Atrial fibrillation, rate control Warfarin discontinued due to anemia and dropping Hb Cor-pulmonale Obesity hypoventilation syndrome/LINDA Anemia, new onset s/p PRBC transfusion EGD showing 2 deep base ulcers Acute renal failure - resolved Hx of HIV infection Echocardiogram shows severe dilatation of the right heart chambers, moderate tricuspid regurgitation, and moderate pulmonary hypertension with pulmonary artery systolic pressures of 55 mmHg. Findings are consistent with chronic cor pulmonale. In addition to right heart findings, there is marked dilatation of the left atrium. There is at least mild to moderate mitral regurgitation. Left ventricular chamber size and systolic function are normal with an ejection fraction of 55%. Recommendations: Resume anticoagulation when cleared by GI Continue metoprolol for rate control Switch to po lasix upon discharge Will sign off Please call back if needed Subjective Date of service: 08/14/17 Principal diagnosis: CHF, HIV, severe morbid obesity, pulmonary hypertension Interval history: Patient seen and examined No cardiac events overnight Objective Vital Signs Temp Pulse Resp BP BP Pulse Ox 08/14/17 10:08 86 104/58 08/14/17 10:00 98 08/14/17 08:18 98.1 F 73 18 104/58 98 08/14/17 05:07 98.1 F 74 18 96/53 91 08/14/17 00:00 98.3 F 75 18 105/49 93 08/13/17 22:00 18 98 08/13/17 21:59 68 27 H 98 08/13/17 19:21 97.8 F 77 18 111/44 99 08/13/17 16:58 98.6 F 18 102/61 08/13/17 12:08 71 112/53 90 08/13/17 11:54 72 107/59 - Physical Examination General: Appears Well, No Apparent Distress, Other (obese) HEENT: Positive: PERRL, Normocephaly Neck: Positive: neck supple. Negative: JVD/HJR Cardiac: Positive: irregularly irregular Lungs: Positive: Decreased Breath Sounds Neuro: Positive: Grossly Intact Abdomen: Positive: Unremarkable, Soft Skin: Positive: Clear Extremities: Present: edema (trace) - Labs and Meds Coagulation 08/14/17 Range/Units 06:54 PT 13.8 (12.2-14.9) Sec. INR 1.01 (0.87-1.13) CBC 08/14/17 Range/Units 06:54 WBC 9.3 (4.5-11.0) K/mm3 RBC 3.25 L (3.65-5.03) M/mm3 Hgb 8.6 L (10.1-14.3) gm/dl Hct 26.3 L (30.3-42.9) % Plt Count 157 (140-440) K/mm3 Lymph # 1.5 (1.2-5.4) K/mm3 [place] # 1.1 H (0.0-0.8) K/mm3 Eos # 0.1 (0.0-0.4) K/mm3 Baso # 0.0 (0.0-0.1) K/mm3 Comprehensive Metabolic Panel 08/13/17 08/14/17 Range/Units 15:49 06:54 Sodium 139 (137-145) mmol/L Potassium 3.4 L 3.3 L (3.6-5.0) mmol/L Chloride 96.1 L (98-107) mmol/L Carbon Dioxide 37 H (22-30) mmol/L BUN 14 (7-17) mg/dL Creatinine 0.9 (0.7-1.2) mg/dL Glucose 96 (65-100) mg/dL Calcium 7.7 L (8.4-10.2) mg/dL - Imaging and Cardiology EKG: image reviewed
--- NOTE | 2017-08-14 14:35 | Progress Note ---
Assessment and Plan Chronic atrial fibrillation with controlled ventricular response Chronic cor pulmonale Severe pulmonary hypertension. Both group 2, 3 findings per ABG/echocardiogram History of HIV. PAH is also a consideration. No recent heart catheterization data Dementia Morbid obesity Obesity hypoventilation syndrome. Patient with hypercapnia on presentation Obstructive sleep apnea Recommendations Continue oxygen during daytime. Avoid sustained hypoxemia, especially at nighttime Continue BiPAP at nighttime. If there is no prior sleep study data, she will need an outpatient sleep study evaluation, assuming patient is able to comply with CPAP therapy The patient is not able to comply with CPAP/BiPAP treatment due to dementia problems, recommend to use support oxygen nighttime Outpatient pulmonary hypertension/PAH workup Follow-up in cardiology recommendations DVT prophylaxis May give empirically Spiriva respiratory inhaler 1-2 inhalations daily, if any history of smoking exposure in the past. Outpatient PFT for COPD evaluation Subjective Date of service: 08/14/17 Principal diagnosis: CHF, HIV, severe morbid obesity, pulmonary hypertension Interval history: Reports no radiological complaints. Currently using her oxygen, not her BiPAP Objective Vital Signs - 12hr 08/14/17 08/14/17 08/14/17 05:07 08:18 10:00 Temperature 98.1 F 98.1 F Pulse Rate 74 73 Respiratory 18 18 Rate Blood Pressure 96/53 104/58 O2 Sat by Pulse 91 98 98 Oximetry 08/14/17 10:08 Temperature Pulse Rate 86 Respiratory Rate Blood Pressure 104/58 O2 Sat by Pulse Oximetry Constitutional: no acute distress, alert, other (morbidly obese) ENT: oropharynx moist Neck: no JVD Ascultation: Bilateral: clear, diminished breath sounds Percussion: Bilateral: not dull Cardiovascular: regular rate and rhythm Gastrointestinal: other (obese) Extremities: no cyanosis, no edema, pink and warm Neurologic: normal mental status, non-focal exam, pupils equal and round, CN II- XII normal Psychiatric: mood appropriate CBC and BMP: 08/14/17 06:54 08/14/17 06:54 ABG, PT/INR, D-dimer: ABG POC ABG pH 7.625 (7.35-7.45) H 08/09/17 12:46 POC ABG pCO2 45.7 (35-45) H 08/09/17 12:46 POC ABG pO2 30 (80-105) L 08/09/17 12:46 POC ABG HCO3 47.5 08/09/17 12:46 POC ABG Total CO2 49 08/09/17 12:46 POC ABG O2 Sat 69 08/09/17 12:46 PT/INR, D-dimer PT 13.8 Sec. (12.2-14.9) 08/14/17 06:54 INR 1.01 (0.87-1.13) 08/14/17 06:54 D-Dimer 765.25 ng/mlDDU (0-234) H 08/06/17 00:21 Abnormal lab findings: Abnormal Labs 08/06/17 08/06/17 08/06/17 00:15 00:21 00:21 WBC RBC Hgb Hct MCH 26 L RDW 18.0 H Lymph % (Auto) [place] % (Auto) Lymph # [place] # Seg Neutrophils % Seg Neuts % (Manual) 84.0 H Lymphocytes % (Manual) 6.0 L Nucleated RBC % 4.0 H Seg Neutrophils # Seg Neutrophils # Man 8.1 H Lymphocytes # (Manual) 0.6 L PT D-Dimer POC ABG pH POC ABG pCO2 57.0 H POC ABG pO2 41 L Sodium Potassium Chloride 94.5 L Carbon Dioxide 32 H BUN 33 H Creatinine 2.4 H Glucose 128 H Calcium Crossmatch 08/06/17 08/07/17 08/07/17 00:21 06:38 06:38 WBC RBC Hgb 10.0 L Hct MCH 26 L RDW 17.5 H Lymph % (Auto) 9.0 L [place] % (Auto) 12.5 H Lymph # 0.8 L [place] # 1.2 H Seg Neutrophils % 78.2 H Seg Neuts % (Manual) Lymphocytes % (Manual) Nucleated RBC % Seg Neutrophils # Seg Neutrophils # Man Lymphocytes # (Manual) PT D-Dimer 765.25 H POC ABG pH POC ABG pCO2 POC ABG pO2 Sodium Potassium 5.5 H D Chloride Carbon Dioxide 31 H BUN 41 H Creatinine 1.7 H Glucose Calcium Crossmatch 08/08/17 08/08/17 08/08/17 06:36 06:36 10:06 WBC 11.2 H RBC 3.47 L Hgb 8.9 L Hct 28.6 L MCH 26 L RDW 17.3 H Lymph % (Auto) 10.2 L [place] % (Auto) 10.9 H Lymph # 1.1 L [place] # 1.2 H Seg Neutrophils % 78.3 H Seg Neuts % (Manual) Lymphocytes % (Manual) Nucleated RBC % Seg Neutrophils # 8.8 H Seg Neutrophils # Man Lymphocytes # (Manual) PT D-Dimer POC ABG pH 7.520 H POC ABG pCO2 59.5 H POC ABG pO2 59 L Sodium 150 H D Potassium Chloride Carbon Dioxide 41 H* D BUN 32 H Creatinine Glucose 124 H Calcium Crossmatch 08/09/17 08/09/17 08/09/17 06:11 12:46 16:32 WBC 12.6 H 12.0 H RBC 3.05 L 2.88 L Hgb 7.9 L 7.5 L Hct 24.9 L 23.3 L MCH 26 L 26 L RDW 17.2 H 17.5 H Lymph % (Auto) 8.8 L [place] % (Auto) 14.9 H Lymph # 1.1 L [place] # 1.8 H Seg Neutrophils % 76.3 H Seg Neuts % (Manual) Lymphocytes % (Manual) Nucleated RBC % Seg Neutrophils # 9.1 H Seg Neutrophils # Man Lymphocytes # (Manual) PT D-Dimer POC ABG pH 7.625 H POC ABG pCO2 45.7 H POC ABG pO2 30 L Sodium Potassium Chloride Carbon Dioxide BUN Creatinine Glucose Calcium Crossmatch 08/09/17 08/09/17 08/10/17 16:32 19:52 01:00 WBC RBC Hgb 6.9 L Hct 21.7 L MCH RDW Lymph % (Auto) [place] % (Auto) Lymph # [place] # Seg Neutrophils % Seg Neuts % (Manual) Lymphocytes % (Manual) Nucleated RBC % Seg Neutrophils # Seg Neutrophils # Man Lymphocytes # (Manual) PT D-Dimer POC ABG pH POC ABG pCO2 POC ABG pO2 Sodium 153 H Potassium Chloride Carbon Dioxide 45 H* BUN 33 H Creatinine Glucose 109 H Calcium Crossmatch See Detail 08/10/17 08/10/17 08/10/17 07:02 07:02 07:02 WBC RBC 3.14 L Hgb 8.2 L Hct 25.8 L MCH 26 L RDW 17.1 H Lymph % (Auto) [place] % (Auto) 11.8 H Lymph # [place] # 1.2 H Seg Neutrophils % 73.8 H Seg Neuts % (Manual) Lymphocytes % (Manual) Nucleated RBC % Seg Neutrophils # Seg Neutrophils # Man Lymphocytes # (Manual) PT 15.0 H D-Dimer POC ABG pH POC ABG pCO2 POC ABG pO2 Sodium 152 H Potassium 3.5 L Chloride Carbon Dioxide 44 H* BUN 21 H Creatinine Glucose 111 H Calcium 8.1 L Crossmatch 08/10/17 08/10/17 08/11/17 17:16 21:20 07:51 WBC RBC 3.09 L Hgb 8.7 L 8.2 L 8.2 L Hct 27.0 L 25.6 L 25.7 L MCH 27 L RDW 16.7 H Lymph % (Auto) [place] % (Auto) 12.1 H Lymph # [place] # 1.2 H Seg Neutrophils % 73.1 H Seg Neuts % (Manual) Lymphocytes % (Manual) Nucleated RBC % Seg Neutrophils # Seg Neutrophils # Man Lymphocytes # (Manual) PT D-Dimer POC ABG pH POC ABG pCO2 POC ABG pO2 Sodium Potassium Chloride Carbon Dioxide BUN Creatinine Glucose Calcium Crossmatch 08/11/17 08/12/17 08/12/17 07:51 07:29 07:29 WBC 11.3 H RBC 3.17 L Hgb 8.2 L Hct 26.5 L MCH 26 L RDW 16.9 H Lymph % (Auto) 12.9 L [place] % (Auto) 11.4 H Lymph # [place] # 1.3 H Seg Neutrophils % 74.3 H Seg Neuts % (Manual) Lymphocytes % (Manual) Nucleated RBC % Seg Neutrophils # 8.4 H Seg Neutrophils # Man Lymphocytes # (Manual) PT D-Dimer POC ABG pH POC ABG pCO2 POC ABG pO2 Sodium 149 H 159 H D Potassium Chloride 109.9 H Carbon Dioxide 40 H 37 H BUN Creatinine Glucose Calcium 8.0 L 7.9 L Crossmatch 08/13/17 08/13/17 08/13/17 07:34 07:34 15:49 WBC RBC Hgb 8.3 L Hct 25.0 L MCH RDW Lymph % (Auto) [place] % (Auto) Lymph # [place] # Seg Neutrophils % Seg Neuts % (Manual) Lymphocytes % (Manual) Nucleated RBC % Seg Neutrophils # Seg Neutrophils # Man Lymphocytes # (Manual) PT D-Dimer POC ABG pH POC ABG pCO2 POC ABG pO2 Sodium Potassium 2.9 L* D 3.4 L Chloride 93.6 L Carbon Dioxide 38 H BUN Creatinine Glucose 124 H Calcium 7.4 L Crossmatch 08/14/17 08/14/17 06:54 06:54 WBC RBC 3.25 L Hgb 8.6 L Hct 26.3 L MCH 27 L RDW 16.8 H Lymph % (Auto) [place] % (Auto) 11.9 H Lymph # [place] # 1.1 H Seg Neutrophils % 70.7 H Seg Neuts % (Manual) Lymphocytes % (Manual) Nucleated RBC % Seg Neutrophils # Seg Neutrophils # Man Lymphocytes # (Manual) PT D-Dimer POC ABG pH POC ABG pCO2 POC ABG pO2 Sodium Potassium 3.3 L Chloride 96.1 L Carbon Dioxide 37 H BUN Creatinine Glucose Calcium 7.7 L Crossmatch
[2017-08-14] MEDS ORDERED: POTASSIUM CHLORIDE FEEDTUBE ONE ×2 (14:47→18:00)
--- NOTE | 2017-08-14 14:55 | Progress Note ---
Assessment and Plan Assessment and plan: 82 year old -[place] female with medical history significant for dementia, HIV/AIDS, A. fib on anticoagulation was brought to the emergency department for the complains of shortness of breath. In the emergency department chest x-ray was done and showed pulmonary congestion, elevated creatinine Congestive heart failure - Diastolic CHF - Patient is on IV Lasix - Blood pressure is marginal and couldn't tolerate any other blood pressure medication Cor pulmonale - Pulmonary consulted Atrial fibrillation - Held Coumadin because of GI bleed TREY - Resolved Hypokalemia - will replace and check potassium Dementia - supportive care HIV/AIDS - Restart home medication GI bleed - Gl was consulted and they did EGD and showed 2 deep ulcers with fibrous base, no active bleeding - on PPI - Advance diet Hypernatremia - Resolved DVT prophylaxis - SCDs because of GI bleed Disposition -Pending placement to rehabilitation. History Interval history: Patient has severe dementia and she answer yes to every question. Her was in the room while I examined the patient. Hospitalist Physical - Physical exam Narrative exam: Not in cardiopulmonary distress. The patient is morbidly obese. Vital signs as documented. Head exam is unremarkable. No scleral icterus . Neck is without jugular venous distension, thyromegaly, or carotid bruits. Lungs are clear to auscultation. Cardiac exam reveals irregular rate and Rhythm. Abdominal exam reveals normal bowel sounds. Extremities are nonedematous and both femoral and pedal pulses are normal. [employer]: Alert and not oriented. No focal weakness. - Constitutional Vitals: Temp Pulse Resp BP Pulse Ox 98.1 F 86 18 104/58 98 08/14/17 08:18 08/14/17 10:08 08/14/17 08:18 08/14/17 10:08 08/14/17 10:00 General appearance: Present: no acute distress Results - Labs CBC & Chem 7: 08/14/17 06:54 08/14/17 06:54 Labs: Laboratory Last Values WBC 9.3 K/mm3 (4.5-11.0) 08/14/17 06:54 RBC 3.25 M/mm3 (3.65-5.03) L 08/14/17 06:54 Hgb 8.6 gm/dl (10.1-14.3) L 08/14/17 06:54 Hct 26.3 % (30.3-42.9) L 08/14/17 06:54 MCV 81 fl (79-97) 08/14/17 06:54 MCH 27 pg (28-32) L 08/14/17 06:54 MCHC 33 % (30-34) 08/14/17 06:54 RDW 16.8 % (13.2-15.2) H 08/14/17 06:54 Plt Count 157 K/mm3 (140-440) 08/14/17 06:54 Lymph % (Auto) 15.6 % (13.4-35.0) 08/14/17 06:54 [place] % (Auto) 11.9 % (0.0-7.3) H 08/14/17 06:54 E[place] % (Auto) 1.6 % (0.0-4.3) 08/14/17 06:54 Baso % (Auto) 0.2 % (0.0-1.8) 08/14/17 06:54 Lymph # 1.5 K/mm3 (1.2-5.4) 08/14/17 06:54 [place] # 1.1 K/mm3 (0.0-0.8) H 08/14/17 06:54 Eos # 0.1 K/mm3 (0.0-0.4) 08/14/17 06:54 Baso # 0.0 K/mm3 (0.0-0.1) 08/14/17 06:54 Add Manual Diff Complete 08/06/17 00:21 Total Counted 100 08/06/17 00:21 Seg Neutrophils % 70.7 % (40.0-70.0) H 08/14/17 06:54 Seg Neuts % (Manual) 84.0 % (40.0-70.0) H 08/06/17 00:21 Band Neutrophils % 2.0 % 08/06/17 00:21 Lymphocytes % (Manual) 6.0 % (13.4-35.0) L 08/06/17 00:21 Reactive Lymphs % (Man) 0 % 08/06/17 00:21 Monocytes % (Manual) 7.0 % (0.0-7.3) 08/06/17 00:21 Eosinophils % (Manual) 0 % (0.0-4.3) 08/06/17 00:21 Basophils % (Manual) 0 % (0.0-1.8) 08/06/17 00:21 Metamyelocytes % 0 % 08/06/17 00:21 Myelocytes % 1.0 % 08/06/17 00:21 Promyelocytes % 0 % 08/06/17 00:21 Blast Cells % 0 % 08/06/17 00:21 Nucleated RBC % 4.0 % (0.0-0.9) H 08/06/17 00:21 Seg Neutrophils # 6.6 K/mm3 (1.8-7.7) 08/14/17 06:54 Seg Neutrophils # Man 8.1 K/mm3 (1.8-7.7) H 08/06/17 00:21 Band Neutrophils # 0.2 K/mm3 08/06/17 00:21 Lymphocytes # (Manual) 0.6 K/mm3 (1.2-5.4) L 08/06/17 00:21 Abs React Lymphs (Man) 0.0 K/mm3 08/06/17 00:21 Monocytes # (Manual) 0.7 K/mm3 (0.0-0.8) 08/06/17 00:21 Eosinophils # (Manual) 0.0 K/mm3 (0.0-0.4) 08/06/17 00:21 Basophils # (Manual) 0.0 K/mm3 (0.0-0.1) 08/06/17 00:21 Metamyelocytes # 0.0 K/mm3 08/06/17 00:21 Myelocytes # 0.1 K/mm3 08/06/17 00:21 Promyelocytes # 0.0 K/mm3 08/06/17 00:21 Blast Cells # 0.0 K/mm3 08/06/17 00:21 WBC Morphology Not Reportable 08/06/17 00:21 Hypersegmented Neuts Not Reportable 08/06/17 00:21 Hyposegmented Neuts Not Reportable 08/06/17 00:21 Hypogranular Neuts Not Reportable 08/06/17 00:21 Smudge Cells Not Reportable 08/06/17 00:21 Toxic Granulation Not Reportable 08/06/17 00:21 Toxic Vacuolation Not Reportable 08/06/17 00:21 Dohle Bodies Not Reportable 08/06/17 00:21 Pelger-Huet Anomaly Not Reportable 08/06/17 00:21 [place] Rods Not Reportable 08/06/17 00:21 Platelet Estimate Consistent w auto 08/06/17 00:21 Clumped Platelets Not Reportable 08/06/17 00:21 Plt Clumps, EDTA Not Reportable 08/06/17 00:21 Large Platelets Not Reportable 08/06/17 00:21 Giant Platelets Not Reportable 08/06/17 00:21 Platelet Satelliting Not Reportable 08/06/17 00:21 Plt Morphology Comment Not Reportable 08/06/17 00:21 RBC Morphology Not Reportable 08/06/17 00:21 Dimorphic RBCs Not Reportable 08/06/17 00:21 Polychromasia Not Reportable 08/06/17 00:21 Hypochromasia 1+ 08/06/17 00:21 Poikilocytosis Not Reportable 08/06/17 00:21 Anisocytosis Not Reportable 08/06/17 00:21 Microcytosis Not Reportable 08/06/17 00:21 Macrocytosis Not Reportable 08/06/17 00:21 Spherocytes Not Reportable 08/06/17 00:21 Pappenheimer Bodies Not Reportable 08/06/17 00:21 Sickle Cells Not Reportable 08/06/17 00:21 Target Cells Few 08/06/17 00:21 Tear Drop Cells Not Reportable 08/06/17 00:21 Ovalocytes Not Reportable 08/06/17 00:21 Helmet Cells Not Reportable 08/06/17 00:21 [place] Bodies Not Reportable 08/06/17 00:21 [place] Rings Not Reportable 08/06/17 00:21 [place] Cells Not Reportable 08/06/17 00:21 Bite Cells Not Reportable 08/06/17 00:21 Crenated Cell Not Reportable 08/06/17 00:21 Elliptocytes Not Reportable 08/06/17 00:21 Acanthocytes (Spur) Not Reportable 08/06/17 00:21 Rouleaux Not Reportable 08/06/17 00:21 Hemoglobin C Crystals Not Reportable 08/06/17 00:21 Schistocytes Not Reportable 08/06/17 00:21 Malaria parasites Not Reportable 08/06/17 00:21 Carlo Bodies Not Reportable 08/06/17 00:21 Hem Pathologist Commnt No 08/06/17 00:21 PT 13.8 Sec. (12.2-14.9) 08/14/17 06:54 INR 1.01 (0.87-1.13) 08/14/17 06:54 APTT 24.2 Sec. (24.2-36.6) 08/06/17 00:21 D-Dimer 765.25 ng/mlDDU (0-234) H 08/06/17 00:21 POC ABG pH 7.625 (7.35-7.45) H 08/09/17 12:46 POC ABG pCO2 45.7 (35-45) H 08/09/17 12:46 POC ABG pO2 30 (80-105) L 08/09/17 12:46 POC ABG HCO3 47.5 08/09/17 12:46 POC ABG Total CO2 49 08/09/17 12:46 POC ABG O2 Sat 69 08/09/17 12:46 POC ABG Base Excess 26 08/09/17 12:46 FiO2 21 % 08/09/17 12:46 Sodium 139 mmol/L (137-145) 08/14/17 06:54 Potassium 3.3 mmol/L (3.6-5.0) L 08/14/17 06:54 Chloride 96.1 mmol/L (98-107) L 08/14/17 06:54 Carbon Dioxide 37 mmol/L (22-30) H 08/14/17 06:54 Anion Gap 9 mmol/L 08/14/17 06:54 BUN 14 mg/dL (7-17) 08/14/17 06:54 Creatinine 0.9 mg/dL (0.7-1.2) 08/14/17 06:54 Estimated GFR > 60 ml/min 08/14/17 06:54 BUN/Creatinine Ratio 16 % 08/14/17 06:54 Glucose 96 mg/dL (65-100) 08/14/17 06:54 Calcium 7.7 mg/dL (8.4-10.2) L 08/14/17 06:54 Total Creatine Kinase 37 units/L (30-135) 08/06/17 12:45 CK-MB (CK-2) < 1.0 ng/mL (0.0-4.0) 08/06/17 12:45 CK-MB (CK-2) Rel Index 2.7 (0-4) 08/06/17 12:45 Troponin T < 0.010 ng/mL (0.00-0.029) 08/06/17 12:45 Blood Type A POSITIVE 08/09/17 19:52 Antibody Screen Negative 08/09/17 19:52 Crossmatch See Detail 08/09/17 19:52
[2017-08-15] MEDS: LASIX IV SCH ×2 (05:51→19:43)
[2017-08-15 07:38] LABS: INR 0.99 (0.87-1.13)
[2017-08-15 07:46] LABS: BUN/Creatinine Ratio 13; Blood Urea Nitrogen 13 mg/dL (7-17); Calcium 7.6 mg/dL (8.4-10.2); Hemolysis Index 29
[2017-08-15] MEDS ORDERED: POTASSIUM CHLORIDE FEEDTUBE NR (09:11)
[2017-08-15] MEDS: ZIAGEN PO SCH (10:46)
[2017-08-15] MEDS: PROTONIX PO SCH ×2 (10:47→21:35)
[2017-08-15] MEDS: PREZISTA PO SCH (10:47)
[2017-08-15] MEDS: LOPRESSOR PO SCH ×2 (10:47→22:00)
[2017-08-15] MEDS: TIVICAY (NF) PO SCH (10:48)
[2017-08-15] MEDS: SODIUM CHLORIDE FLUSH SYRINGE 10 ML IV SCH ×2 (10:50→21:35)
--- NOTE | 2017-08-15 14:09 | Progress Note ---
Assessment and Plan Chronic atrial fibrillation with controlled ventricular response Chronic cor pulmonale Severe pulmonary hypertension. Both group 2, 3 findings per ABG/echocardiogram History of HIV. PAH is also a consideration. No recent heart catheterization data Dementia Morbid obesity Obesity hypoventilation syndrome. Patient with hypercapnia on presentation Obstructive sleep apnea Recommendations Continue oxygen during daytime. Continue BiPAP at nighttime. Outpatient sleep study evaluation, assuming patient is able to comply with CPAP therapy Outpatient pulmonary hypertension/PAH workup Follow-up in cardiology recommendations DVT prophylaxis Spiriva respiratory inhaler 1-2 inhalations daily, if any history of smoking exposure in the past. Outpatient PFT for COPD evaluation Subjective Date of service: 08/15/17 Principal diagnosis: CHF, HIV, severe morbid obesity, pulmonary hypertension Interval history: Reports no complaints. Objective Vital Signs - 12hr 08/15/17 08/15/17 08/15/17 05:20 07:46 09:14 Temperature 98.8 F 97.9 F Pulse Rate 72 77 Respiratory 18 20 Rate Blood Pressure 105/61 Blood Pressure 116/52 [Left] O2 Sat by Pulse 93 97 99 Oximetry 08/15/17 08/15/17 10:47 11:45 Temperature 98.2 F Pulse Rate 77 79 Respiratory 20 Rate Blood Pressure 105/61 135/77 Blood Pressure [Left] O2 Sat by Pulse 97 Oximetry Constitutional: no acute distress, alert, other (morbidly obese) ENT: oropharynx moist Neck: no JVD Ascultation: Bilateral: clear, diminished breath sounds Percussion: Bilateral: not dull Cardiovascular: regular rate and rhythm Gastrointestinal: other (obese) Extremities: no cyanosis, no edema, pink and warm Neurologic: normal mental status, non-focal exam, pupils equal and round, CN II- XII normal Psychiatric: mood appropriate CBC and BMP: 08/15/17 06:27 08/15/17 06:27 ABG, PT/INR, D-dimer: ABG POC ABG pH 7.625 (7.35-7.45) H 08/09/17 12:46 POC ABG pCO2 45.7 (35-45) H 08/09/17 12:46 POC ABG pO2 30 (80-105) L 08/09/17 12:46 POC ABG HCO3 47.5 08/09/17 12:46 POC ABG Total CO2 49 08/09/17 12:46 POC ABG O2 Sat 69 08/09/17 12:46 PT/INR, D-dimer PT 13.6 Sec. (12.2-14.9) 08/15/17 06:27 INR 0.99 (0.87-1.13) 08/15/17 06:27 D-Dimer 765.25 ng/mlDDU (0-234) H 08/06/17 00:21 Abnormal lab findings: Abnormal Labs 08/06/17 08/06/17 08/06/17 00:15 00:21 00:21 WBC RBC Hgb Hct MCH 26 L RDW 18.0 H Lymph % (Auto) [place] % (Auto) Lymph # [place] # Seg Neutrophils % Seg Neuts % (Manual) 84.0 H Lymphocytes % (Manual) 6.0 L Nucleated RBC % 4.0 H Seg Neutrophils # Seg Neutrophils # Man 8.1 H Lymphocytes # (Manual) 0.6 L PT D-Dimer POC ABG pH POC ABG pCO2 57.0 H POC ABG pO2 41 L Sodium Potassium Chloride 94.5 L Carbon Dioxide 32 H BUN 33 H Creatinine 2.4 H Glucose 128 H Calcium Crossmatch 08/06/17 08/07/17 08/07/17 00:21 06:38 06:38 WBC RBC Hgb 10.0 L Hct MCH 26 L RDW 17.5 H Lymph % (Auto) 9.0 L [place] % (Auto) 12.5 H Lymph # 0.8 L [place] # 1.2 H Seg Neutrophils % 78.2 H Seg Neuts % (Manual) Lymphocytes % (Manual) Nucleated RBC % Seg Neutrophils # Seg Neutrophils # Man Lymphocytes # (Manual) PT D-Dimer 765.25 H POC ABG pH POC ABG pCO2 POC ABG pO2 Sodium Potassium 5.5 H D Chloride Carbon Dioxide 31 H BUN 41 H Creatinine 1.7 H Glucose Calcium Crossmatch 08/08/17 08/08/17 08/08/17 06:36 06:36 10:06 WBC 11.2 H RBC 3.47 L Hgb 8.9 L Hct 28.6 L MCH 26 L RDW 17.3 H Lymph % (Auto) 10.2 L [place] % (Auto) 10.9 H Lymph # 1.1 L [place] # 1.2 H Seg Neutrophils % 78.3 H Seg Neuts % (Manual) Lymphocytes % (Manual) Nucleated RBC % Seg Neutrophils # 8.8 H Seg Neutrophils # Man Lymphocytes # (Manual) PT D-Dimer POC ABG pH 7.520 H POC ABG pCO2 59.5 H POC ABG pO2 59 L Sodium 150 H D Potassium Chloride Carbon Dioxide 41 H* D BUN 32 H Creatinine Glucose 124 H Calcium Crossmatch 08/09/17 08/09/17 08/09/17 06:11 12:46 16:32 WBC 12.6 H 12.0 H RBC 3.05 L 2.88 L Hgb 7.9 L 7.5 L Hct 24.9 L 23.3 L MCH 26 L 26 L RDW 17.2 H 17.5 H Lymph % (Auto) 8.8 L [place] % (Auto) 14.9 H Lymph # 1.1 L [place] # 1.8 H Seg Neutrophils % 76.3 H Seg Neuts % (Manual) Lymphocytes % (Manual) Nucleated RBC % Seg Neutrophils # 9.1 H Seg Neutrophils # Man Lymphocytes # (Manual) PT D-Dimer POC ABG pH 7.625 H POC ABG pCO2 45.7 H POC ABG pO2 30 L Sodium Potassium Chloride Carbon Dioxide BUN Creatinine Glucose Calcium Crossmatch 08/09/17 08/09/17 08/10/17 16:32 19:52 01:00 WBC RBC Hgb 6.9 L Hct 21.7 L MCH RDW Lymph % (Auto) [place] % (Auto) Lymph # [place] # Seg Neutrophils % Seg Neuts % (Manual) Lymphocytes % (Manual) Nucleated RBC % Seg Neutrophils # Seg Neutrophils # Man Lymphocytes # (Manual) PT D-Dimer POC ABG pH POC ABG pCO2 POC ABG pO2 Sodium 153 H Potassium Chloride Carbon Dioxide 45 H* BUN 33 H Creatinine Glucose 109 H Calcium Crossmatch See Detail 08/10/17 08/10/17 08/10/17 07:02 07:02 07:02 WBC RBC 3.14 L Hgb 8.2 L Hct 25.8 L MCH 26 L RDW 17.1 H Lymph % (Auto) [place] % (Auto) 11.8 H Lymph # [place] # 1.2 H Seg Neutrophils % 73.8 H Seg Neuts % (Manual) Lymphocytes % (Manual) Nucleated RBC % Seg Neutrophils # Seg Neutrophils # Man Lymphocytes # (Manual) PT 15.0 H D-Dimer POC ABG pH POC ABG pCO2 POC ABG pO2 Sodium 152 H Potassium 3.5 L Chloride Carbon Dioxide 44 H* BUN 21 H Creatinine Glucose 111 H Calcium 8.1 L Crossmatch 08/10/17 08/10/17 08/11/17 17:16 21:20 07:51 WBC RBC 3.09 L Hgb 8.7 L 8.2 L 8.2 L Hct 27.0 L 25.6 L 25.7 L MCH 27 L RDW 16.7 H Lymph % (Auto) [place] % (Auto) 12.1 H Lymph # [place] # 1.2 H Seg Neutrophils % 73.1 H Seg Neuts % (Manual) Lymphocytes % (Manual) Nucleated RBC % Seg Neutrophils # Seg Neutrophils # Man Lymphocytes # (Manual) PT D-Dimer POC ABG pH POC ABG pCO2 POC ABG pO2 Sodium Potassium Chloride Carbon Dioxide BUN Creatinine Glucose Calcium Crossmatch 08/11/17 08/12/17 08/12/17 07:51 07:29 07:29 WBC 11.3 H RBC 3.17 L Hgb 8.2 L Hct 26.5 L MCH 26 L RDW 16.9 H Lymph % (Auto) 12.9 L [place] % (Auto) 11.4 H Lymph # [place] # 1.3 H Seg Neutrophils % 74.3 H Seg Neuts % (Manual) Lymphocytes % (Manual) Nucleated RBC % Seg Neutrophils # 8.4 H Seg Neutrophils # Man Lymphocytes # (Manual) PT D-Dimer POC ABG pH POC ABG pCO2 POC ABG pO2 Sodium 149 H 159 H D Potassium Chloride 109.9 H Carbon Dioxide 40 H 37 H BUN Creatinine Glucose Calcium 8.0 L 7.9 L Crossmatch 08/13/17 08/13/17 08/13/17 07:34 07:34 15:49 WBC RBC Hgb 8.3 L Hct 25.0 L MCH RDW Lymph % (Auto) [place] % (Auto) Lymph # [place] # Seg Neutrophils % Seg Neuts % (Manual) Lymphocytes % (Manual) Nucleated RBC % Seg Neutrophils # Seg Neutrophils # Man Lymphocytes # (Manual) PT D-Dimer POC ABG pH POC ABG pCO2 POC ABG pO2 Sodium Potassium 2.9 L* D 3.4 L Chloride 93.6 L Carbon Dioxide 38 H BUN Creatinine Glucose 124 H Calcium 7.4 L Crossmatch 08/14/17 08/14/17 08/15/17 06:54 06:54 06:27 WBC RBC 3.25 L Hgb 8.6 L Hct 26.3 L MCH 27 L RDW 16.8 H Lymph % (Auto) [place] % (Auto) 11.9 H Lymph # [place] # 1.1 H Seg Neutrophils % 70.7 H Seg Neuts % (Manual) Lymphocytes % (Manual) Nucleated RBC % Seg Neutrophils # Seg Neutrophils # Man Lymphocytes # (Manual) PT D-Dimer POC ABG pH POC ABG pCO2 POC ABG pO2 Sodium Potassium 3.3 L 3.5 L Chloride 96.1 L 92.9 L Carbon Dioxide 37 H 38 H BUN Creatinine Glucose Calcium 7.7 L 7.6 L Crossmatch 08/15/17 06:27 WBC RBC Hgb 9.0 L Hct 27.0 L MCH RDW Lymph % (Auto) [place] % (Auto) Lymph # [place] # Seg Neutrophils % Seg Neuts % (Manual) Lymphocytes % (Manual) Nucleated RBC % Seg Neutrophils # Seg Neutrophils # Man Lymphocytes # (Manual) PT D-Dimer POC ABG pH POC ABG pCO2 POC ABG pO2 Sodium Potassium Chloride Carbon Dioxide BUN Creatinine Glucose Calcium Crossmatch
[2017-08-15] MEDS ORDERED: NACL 0.9% 500 ML 500 ML IV ONE (18:59)
[2017-08-16] MEDS: LASIX IV SCH ×2 (05:36→18:46)
[2017-08-16] MEDS: PREZISTA PO SCH (11:28)
[2017-08-16] MEDS: ZIAGEN PO SCH (11:28)
[2017-08-16] MEDS: TIVICAY (NF) PO SCH (11:28)
[2017-08-16] MEDS: LOPRESSOR PO SCH (11:29)
[2017-08-16] MEDS: PROTONIX PO SCH ×2 (11:29→23:00)
[2017-08-16] MEDS: SODIUM CHLORIDE FLUSH SYRINGE 10 ML IV SCH (11:30)
--- NOTE | 2017-08-16 12:43 | Progress Note ---
Assessment and Plan Chronic atrial fibrillation with controlled ventricular response Chronic cor pulmonale . Clinically stable Severe pulmonary hypertension. Both group 2, 3 findings per ABG/echocardiogram History of HIV. PAH is also a consideration. No recent heart catheterization data Dementia Morbid obesity Obesity hypoventilation syndrome. Patient with hypercapnia on presentation Obstructive sleep apnea. Her son reported that she used to be on either CPAP or BiPAP at home but discontinued treatment Recommendations Continue oxygen during daytime. Continue oxygen at night. Patient is not using her BiPAP Outpatient sleep study evaluation update to reset CPAP therapy vs oxygen Outpatient pulmonary hypertension/PAH workup Follow-up in cardiology recommendations DVT prophylaxis Spiriva respiratory inhaler 1-2 inhalations daily, if any history of smoking exposure in the past. Outpatient PFT for COPD evaluation Discussed recommendations and need for follow-up with patient's son in detail. Office address and phone noted family We'll sign off at this point. Feel free to reconsult if needed Subjective Date of service: 08/16/17 Principal diagnosis: CHF, HIV, severe morbid obesity, pulmonary hypertension Interval history: No respiratory complaints. On nasal, oxygen. Family at the bedside. Scheduled to be discharged to rehabilitation Objective Vital Signs - 12hr 08/16/17 07:06 Temperature 97.5 F L Pulse Rate 87 Respiratory 20 Rate Blood Pressure 108/50 [Left] O2 Sat by Pulse 88 Oximetry Constitutional: no acute distress, alert, other (morbidly obese) ENT: oropharynx moist Neck: no JVD Ascultation: Bilateral: clear, diminished breath sounds Percussion: Bilateral: not dull Cardiovascular: regular rate and rhythm Gastrointestinal: other (obese) Extremities: no cyanosis, no edema, pink and warm Neurologic: normal mental status, non-focal exam, pupils equal and round, CN II- XII normal Psychiatric: mood appropriate CBC and BMP: 08/15/17 06:27 08/15/17 06:27 ABG, PT/INR, D-dimer: ABG POC ABG pH 7.625 (7.35-7.45) H 08/09/17 12:46 POC ABG pCO2 45.7 (35-45) H 08/09/17 12:46 POC ABG pO2 30 (80-105) L 08/09/17 12:46 POC ABG HCO3 47.5 08/09/17 12:46 POC ABG Total CO2 49 08/09/17 12:46 POC ABG O2 Sat 69 08/09/17 12:46 PT/INR, D-dimer PT 13.6 Sec. (12.2-14.9) 08/15/17 06:27 INR 0.99 (0.87-1.13) 08/15/17 06:27 D-Dimer 765.25 ng/mlDDU (0-234) H 08/06/17 00:21 Abnormal lab findings: Abnormal Labs 08/06/17 08/06/17 08/06/17 00:15 00:21 00:21 WBC RBC Hgb Hct MCH 26 L RDW 18.0 H Lymph % (Auto) Newton % (Auto) Lymph # Newton # Seg Neutrophils % Seg Neuts % (Manual) 84.0 H Lymphocytes % (Manual) 6.0 L Nucleated RBC % 4.0 H Seg Neutrophils # Seg Neutrophils # Man 8.1 H Lymphocytes # (Manual) 0.6 L PT D-Dimer POC ABG pH POC ABG pCO2 57.0 H POC ABG pO2 41 L Sodium Potassium Chloride 94.5 L Carbon Dioxide 32 H BUN 33 H Creatinine 2.4 H Glucose 128 H Calcium Crossmatch 08/06/17 08/07/17 08/07/17 00:21 06:38 06:38 WBC RBC Hgb 10.0 L Hct MCH 26 L RDW 17.5 H Lymph % (Auto) 9.0 L Newton % (Auto) 12.5 H Lymph # 0.8 L Newton # 1.2 H Seg Neutrophils % 78.2 H Seg Neuts % (Manual) Lymphocytes % (Manual) Nucleated RBC % Seg Neutrophils # Seg Neutrophils # Man Lymphocytes # (Manual) PT D-Dimer 765.25 H POC ABG pH POC ABG pCO2 POC ABG pO2 Sodium Potassium 5.5 H D Chloride Carbon Dioxide 31 H BUN 41 H Creatinine 1.7 H Glucose Calcium Crossmatch 08/08/17 08/08/17 08/08/17 06:36 06:36 10:06 WBC 11.2 H RBC 3.47 L Hgb 8.9 L Hct 28.6 L MCH 26 L RDW 17.3 H Lymph % (Auto) 10.2 L Newton % (Auto) 10.9 H Lymph # 1.1 L Newton # 1.2 H Seg Neutrophils % 78.3 H Seg Neuts % (Manual) Lymphocytes % (Manual) Nucleated RBC % Seg Neutrophils # 8.8 H Seg Neutrophils # Man Lymphocytes # (Manual) PT D-Dimer POC ABG pH 7.520 H POC ABG pCO2 59.5 H POC ABG pO2 59 L Sodium 150 H D Potassium Chloride Carbon Dioxide 41 H* D BUN 32 H Creatinine Glucose 124 H Calcium Crossmatch 08/09/17 08/09/17 08/09/17 06:11 12:46 16:32 WBC 12.6 H 12.0 H RBC 3.05 L 2.88 L Hgb 7.9 L 7.5 L Hct 24.9 L 23.3 L MCH 26 L 26 L RDW 17.2 H 17.5 H Lymph % (Auto) 8.8 L Newton % (Auto) 14.9 H Lymph # 1.1 L Newton # 1.8 H Seg Neutrophils % 76.3 H Seg Neuts % (Manual) Lymphocytes % (Manual) Nucleated RBC % Seg Neutrophils # 9.1 H Seg Neutrophils # Man Lymphocytes # (Manual) PT D-Dimer POC ABG pH 7.625 H POC ABG pCO2 45.7 H POC ABG pO2 30 L Sodium Potassium Chloride Carbon Dioxide BUN Creatinine Glucose Calcium Crossmatch 08/09/17 08/09/17 08/10/17 16:32 19:52 01:00 WBC RBC Hgb 6.9 L Hct 21.7 L MCH RDW Lymph % (Auto) Newton % (Auto) Lymph # Newton # Seg Neutrophils % Seg Neuts % (Manual) Lymphocytes % (Manual) Nucleated RBC % Seg Neutrophils # Seg Neutrophils # Man Lymphocytes # (Manual) PT D-Dimer POC ABG pH POC ABG pCO2 POC ABG pO2 Sodium 153 H Potassium Chloride Carbon Dioxide 45 H* BUN 33 H Creatinine Glucose 109 H Calcium Crossmatch See Detail 08/10/17 08/10/17 08/10/17 07:02 07:02 07:02 WBC RBC 3.14 L Hgb 8.2 L Hct 25.8 L MCH 26 L RDW 17.1 H Lymph % (Auto) Newton % (Auto) 11.8 H Lymph # Newton # 1.2 H Seg Neutrophils % 73.8 H Seg Neuts % (Manual) Lymphocytes % (Manual) Nucleated RBC % Seg Neutrophils # Seg Neutrophils # Man Lymphocytes # (Manual) PT 15.0 H D-Dimer POC ABG pH POC ABG pCO2 POC ABG pO2 Sodium 152 H Potassium 3.5 L Chloride Carbon Dioxide 44 H* BUN 21 H Creatinine Glucose 111 H Calcium 8.1 L Crossmatch 08/10/17 08/10/17 08/11/17 17:16 21:20 07:51 WBC RBC 3.09 L Hgb 8.7 L 8.2 L 8.2 L Hct 27.0 L 25.6 L 25.7 L MCH 27 L RDW 16.7 H Lymph % (Auto) Newton % (Auto) 12.1 H Lymph # Newton # 1.2 H Seg Neutrophils % 73.1 H Seg Neuts % (Manual) Lymphocytes % (Manual) Nucleated RBC % Seg Neutrophils # Seg Neutrophils # Man Lymphocytes # (Manual) PT D-Dimer POC ABG pH POC ABG pCO2 POC ABG pO2 Sodium Potassium Chloride Carbon Dioxide BUN Creatinine Glucose Calcium Crossmatch 08/11/17 08/12/17 08/12/17 07:51 07:29 07:29 WBC 11.3 H RBC 3.17 L Hgb 8.2 L Hct 26.5 L MCH 26 L RDW 16.9 H Lymph % (Auto) 12.9 L Newton % (Auto) 11.4 H Lymph # Newton # 1.3 H Seg Neutrophils % 74.3 H Seg Neuts % (Manual) Lymphocytes % (Manual) Nucleated RBC % Seg Neutrophils # 8.4 H Seg Neutrophils # Man Lymphocytes # (Manual) PT D-Dimer POC ABG pH POC ABG pCO2 POC ABG pO2 Sodium 149 H 159 H D Potassium Chloride 109.9 H Carbon Dioxide 40 H 37 H BUN Creatinine Glucose Calcium 8.0 L 7.9 L Crossmatch 08/13/17 08/13/17 08/13/17 07:34 07:34 15:49 WBC RBC Hgb 8.3 L Hct 25.0 L MCH RDW Lymph % (Auto) Newton % (Auto) Lymph # Newton # Seg Neutrophils % Seg Neuts % (Manual) Lymphocytes % (Manual) Nucleated RBC % Seg Neutrophils # Seg Neutrophils # Man Lymphocytes # (Manual) PT D-Dimer POC ABG pH POC ABG pCO2 POC ABG pO2 Sodium Potassium 2.9 L* D 3.4 L Chloride 93.6 L Carbon Dioxide 38 H BUN Creatinine Glucose 124 H Calcium 7.4 L Crossmatch 05/29/18 05/29/18 05/30/18 06:54 06:54 06:27 WBC RBC 3.25 L Hgb 8.6 L Hct 26.3 L MCH 27 L RDW 16.8 H Lymph % (Auto) Newton % (Auto) 11.9 H Lymph # Newton # 1.1 H Seg Neutrophils % 70.7 H Seg Neuts % (Manual) Lymphocytes % (Manual) Nucleated RBC % Seg Neutrophils # Seg Neutrophils # Man Lymphocytes # (Manual) PT D-Dimer POC ABG pH POC ABG pCO2 POC ABG pO2 Sodium Potassium 3.3 L 3.5 L Chloride 96.1 L 92.9 L Carbon Dioxide 37 H 38 H BUN Creatinine Glucose Calcium 7.7 L 7.6 L Crossmatch 08/15/17 06:27 WBC RBC Hgb 9.0 L Hct 27.0 L MCH RDW Lymph % (Auto) Newton % (Auto) Lymph # Newton # Seg Neutrophils % Seg Neuts % (Manual) Lymphocytes % (Manual) Nucleated RBC % Seg Neutrophils # Seg Neutrophils # Man Lymphocytes # (Manual) PT D-Dimer POC ABG pH POC ABG pCO2 POC ABG pO2 Sodium Potassium Chloride Carbon Dioxide BUN Creatinine Glucose Calcium Crossmatch
--- NOTE | 2017-08-16 16:39 | Progress Note ---
Assessment and Plan Assessment and plan: 82 year old -Citizen Of [place] female with medical history significant for dementia, HIV/AIDS, A. fib on anticoagulation was brought to the emergency department for the complains of shortness of breath. In the emergency department chest x-ray was done and showed pulmonary congestion, elevated creatinine Congestive heart failure - Diastolic CHF - Patient is on IV Lasix - Blood pressure is marginal and couldn't tolerate any other blood pressure medication Cor pulmonale - Pulmonary consulted Atrial fibrillation - Held Coumadin because of GI bleed TREY - Resolved Hypokalemia - will replace and check potassium Dementia - supportive care HIV/AIDS - Restart home medication GI bleed - Gl was consulted and they did EGD and showed 2 deep ulcers with fibrous base, no active bleeding - on PPI - Advance diet Hypernatremia - Resolved DVT prophylaxis - SCDs because of GI bleed Disposition -Pending placement to rehabilitation. History Interval history: Patient has severe dementia and she answer yes to every question. Her was in the room while I examined the patient. Hospitalist Physical - Physical exam Narrative exam: Not in cardiopulmonary distress. The patient is morbidly obese. Vital signs as documented. Head exam is unremarkable. No scleral icterus . Neck is without jugular venous distension, thyromegaly, or carotid bruits. Lungs are clear to auscultation. Cardiac exam reveals irregular rate and Rhythm. Abdominal exam reveals normal bowel sounds. Extremities are nonedematous and both femoral and pedal pulses are normal. 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 No focal weakness. - Constitutional Vitals: Temp Pulse Resp BP Pulse Ox 97.5 F L 87 20 108/50 88 08/16/17 07:06 08/16/17 07:06 08/16/17 07:06 08/16/17 07:06 08/16/17 07:06 General appearance: Present: no acute distress Results - Labs CBC & Chem 7: 08/15/17 06:27 08/15/17 06:27 Labs: Laboratory Last Values WBC 9.3 K/mm3 (4.5-11.0) 08/14/17 06:54 RBC 3.25 M/mm3 (3.65-5.03) L 08/14/17 06:54 Hgb 9.0 gm/dl (10.1-14.3) L 08/15/17 06:27 Hct 27.0 % (30.3-42.9) L 08/15/17 06:27 MCV 81 fl (79-97) 08/14/17 06:54 MCH 27 pg (28-32) L 08/14/17 06:54 MCHC 33 % (30-34) 08/14/17 06:54 RDW 16.8 % (13.2-15.2) H 08/14/17 06:54 Plt Count 157 K/mm3 (140-440) 08/14/17 06:54 Lymph % (Auto) 15.6 % (13.4-35.0) 08/14/17 06:54 Edwards % (Auto) 11.9 % (0.0-7.3) H 08/14/17 06:54 Eos % (Auto) 1.6 % (0.0-4.3) 08/14/17 06:54 Baso % (Auto) 0.2 % (0.0-1.8) 08/14/17 06:54 Lymph # 1.5 K/mm3 (1.2-5.4) 08/14/17 06:54 Edwards # 1.1 K/mm3 (0.0-0.8) H 08/14/17 06:54 Eos # 0.1 K/mm3 (0.0-0.4) 08/14/17 06:54 Baso # 0.0 K/mm3 (0.0-0.1) 08/14/17 06:54 Add Manual Diff Complete 08/06/17 00:21 Total Counted 100 08/06/17 00:21 Seg Neutrophils % 70.7 % (40.0-70.0) H 08/14/17 06:54 Seg Neuts % (Manual) 84.0 % (40.0-70.0) H 08/06/17 00:21 Band Neutrophils % 2.0 % 08/06/17 00:21 Lymphocytes % (Manual) 6.0 % (13.4-35.0) L 08/06/17 00:21 Reactive Lymphs % (Man) 0 % 08/06/17 00:21 Monocytes % (Manual) 7.0 % (0.0-7.3) 08/06/17 00:21 Eosinophils % (Manual) 0 % (0.0-4.3) 08/06/17 00:21 Basophils % (Manual) 0 % (0.0-1.8) 08/06/17 00:21 Metamyelocytes % 0 % 08/06/17 00:21 Myelocytes % 1.0 % 08/06/17 00:21 Promyelocytes % 0 % 08/06/17 00:21 Blast Cells % 0 % 08/06/17 00:21 Nucleated RBC % 4.0 % (0.0-0.9) H 08/06/17 00:21 Seg Neutrophils # 6.6 K/mm3 (1.8-7.7) 08/14/17 06:54 Seg Neutrophils # Man 8.1 K/mm3 (1.8-7.7) H 08/06/17 00:21 Band Neutrophils # 0.2 K/mm3 08/06/17 00:21 Lymphocytes # (Manual) 0.6 K/mm3 (1.2-5.4) L 08/06/17 00:21 Abs React Lymphs (Man) 0.0 K/mm3 08/06/17 00:21 Monocytes # (Manual) 0.7 K/mm3 (0.0-0.8) 08/06/17 00:21 Eosinophils # (Manual) 0.0 K/mm3 (0.0-0.4) 08/06/17 00:21 Basophils # (Manual) 0.0 K/mm3 (0.0-0.1) 08/06/17 00:21 Metamyelocytes # 0.0 K/mm3 08/06/17 00:21 Myelocytes # 0.1 K/mm3 08/06/17 00:21 Promyelocytes # 0.0 K/mm3 08/06/17 00:21 Blast Cells # 0.0 K/mm3 08/06/17 00:21 WBC Morphology Not Reportable 08/06/17 00:21 Hypersegmented Neuts Not Reportable 08/06/17 00:21 Hyposegmented Neuts Not Reportable 08/06/17 00:21 Hypogranular Neuts Not Reportable 08/06/17 00:21 Smudge Cells Not Reportable 08/06/17 00:21 Toxic Granulation Not Reportable 08/06/17 00:21 Toxic Vacuolation Not Reportable 08/06/17 00:21 Dohle Bodies Not Reportable 08/06/17 00:21 Pelger-Huet Anomaly Not Reportable 08/06/17 00:21 Bryant Rods Not Reportable 08/06/17 00:21 Platelet Estimate Consistent w auto 08/06/17 00:21 Clumped Platelets Not Reportable 08/06/17 00:21 Plt Clumps, EDTA Not Reportable 08/06/17 00:21 Large Platelets Not Reportable 08/06/17 00:21 Giant Platelets Not Reportable 08/06/17 00:21 Platelet Satelliting Not Reportable 08/06/17 00:21 Plt Morphology Comment Not Reportable 08/06/17 00:21 RBC Morphology Not Reportable 08/06/17 00:21 Dimorphic RBCs Not Reportable 08/06/17 00:21 Polychromasia Not Reportable 08/06/17 00:21 Hypochromasia 1+ 08/06/17 00:21 Poikilocytosis Not Reportable 08/06/17 00:21 Anisocytosis Not Reportable 08/06/17 00:21 Microcytosis Not Reportable 08/06/17 00:21 Macrocytosis Not Reportable 08/06/17 00:21 Spherocytes Not Reportable 08/06/17 00:21 Pappenheimer Bodies Not Reportable 08/06/17 00:21 Sickle Cells Not Reportable 08/06/17 00:21 Target Cells Few 08/06/17 00:21 Tear Drop Cells Not Reportable 08/06/17 00:21 Ovalocytes Not Reportable 08/06/17 00:21 Helmet Cells Not Reportable 08/06/17 00:21 Cheek-Casmalia Bodies Not Reportable 08/06/17 00:21 [place] Rings Not Reportable 08/06/17 00:21 Addison Cells Not Reportable 08/06/17 00:21 Bite Cells Not Reportable 08/06/17 00:21 Crenated Cell Not Reportable 08/06/17 00:21 Elliptocytes Not Reportable 08/06/17 00:21 Acanthocytes (Spur) Not Reportable 08/06/17 00:21 Rouleaux Not Reportable 08/06/17 00:21 Hemoglobin C Crystals Not Reportable 08/06/17 00:21 Schistocytes Not Reportable 08/06/17 00:21 Malaria parasites Not Reportable 08/06/17 00:21 Carlo Bodies Not Reportable 08/06/17 00:21 Hem Pathologist Commnt No 08/06/17 00:21 PT 13.6 Sec. (12.2-14.9) 08/15/17 06:27 INR 0.99 (0.87-1.13) 08/15/17 06:27 APTT 24.2 Sec. (24.2-36.6) 08/06/17 00:21 D-Dimer 765.25 ng/mlDDU (0-234) H 08/06/17 00:21 POC ABG pH 7.625 (7.35-7.45) H 08/09/17 12:46 POC ABG pCO2 45.7 (35-45) H 08/09/17 12:46 POC ABG pO2 30 (80-105) L 08/09/17 12:46 POC ABG HCO3 47.5 08/09/17 12:46 POC ABG Total CO2 49 08/09/17 12:46 POC ABG O2 Sat 69 08/09/17 12:46 POC ABG Base Excess 26 08/09/17 12:46 FiO2 21 % 08/09/17 12:46 Sodium 138 mmol/L (137-145) 08/15/17 06:27 Potassium 3.5 mmol/L (3.6-5.0) L 08/15/17 06:27 Chloride 92.9 mmol/L (98-107) L 08/15/17 06:27 Carbon Dioxide 38 mmol/L (22-30) H 08/15/17 06:27 Anion Gap 11 mmol/L 08/15/17 06:27 BUN 13 mg/dL (7-17) 08/15/17 06:27 Creatinine 1.0 mg/dL (0.7-1.2) 08/15/17 06:27 Estimated GFR > 60 ml/min 08/15/17 06:27 BUN/Creatinine Ratio 13 % 08/15/17 06:27 Glucose 91 mg/dL (65-100) 08/15/17 06:27 Calcium 7.6 mg/dL (8.4-10.2) L 08/15/17 06:27 Total Creatine Kinase 37 units/L (30-135) 08/06/17 12:45 CK-MB (CK-2) < 1.0 ng/mL (0.0-4.0) 08/06/17 12:45 CK-MB (CK-2) Rel Index 2.7 (0-4) 08/06/17 12:45 Troponin T < 0.010 ng/mL (0.00-0.029) 08/06/17 12:45 Blood Type A POSITIVE 08/09/17 19:52 Antibody Screen Negative 08/09/17 19:52 Crossmatch See Detail 08/09/17 19:52
[2017-08-17] MEDS: LOPRESSOR PO SCH ×3 (00:53→22:10)
[2017-08-17] MEDS: LASIX IV SCH ×2 (06:00→19:05)
--- NOTE | 2017-08-17 10:49 | Query-Infection ---
Dear Date:__08/17/2017 Medical Administrative Technician/CDS:___Shahida Phone#:__[phone] Exercise your independent professional judgment when responding to this query. Questions asked do not imply a particular answer is desired or expected. We greatly appreciate your clarification on this issue. Clinical Documentation States: 82 Year old female was admitted on 08/05/2017 for the complains of shortness of breath. The Hospitalist (Dr. Collins) progress note on 08/16/2017 states "In the emergency department chest x-ray was done and showed pulmonary congestion. HIV/AIDS - Restart home medication." The IM H&P note states "Her chest x-ray shows she has CHF and pneumonia." Clinical findings show: (please check applicable parameters) OR (08/05): 105 RR (08/05): 44 Infection, known /suspected, with some of the following indicators; Specify the infection: 3 General parameters [ ] Fever (core temp >38.30C or 100.40F) [ ] Hypothermia (core temp <36C) [X] Heart rate >90 bpm [X] Tachypnea: >20 bpm or pCO2 < 32 mmHg [ ] Altered mental status [ ] Significant edema / +ve fluid balance (>20 ml/kg 24 h) [ ] Hyperglycemia (Bl. glucose >110 mg/dl) w/o diabetes Inflammatory parameters [ ] Leukocytosis (white blood cell count >12,000/l) [ ] Leukopenia (white blood cell count <4,000/l) [ ] Bandemia (immature WBC > 10%) [ ] Leucocyte Left Shift [ ] Plasma procalcitonin>2 SD above the normal value Hemodynamic and tissue perfusion parameters [ ] Arterial hypotension(SBP <90 mmHg, MAP <70 mmHg,or a SBP drop >40 mmHg in adults) [ ] Hyperlactatemia (>3 mmol/l) [ ] Anion Gap (> 11mEG/l) [ ] Decreased capillary refill or mottling Organ dysfunction parameters [ ] Arterial hypoxemia (PaO2/FIO2 <300) [ ] Creatinine increase =0.5 mg/dl [ ] Acute oliguria (urine output <0.5 ml | kg |h or 45 mM/l for at least 2 hrs) [ ] Coagulation abnormalities (INR >1.5 or activated partial thromboplastin time >60 s) [ ] Ileus (absent pavel wel sounds) [ ] Thrombocytopenia (platelet count <100,000/l) [ ] Hyperbilirubinemia (plasma total bilirubin >4 mg/dl) According to the clinical indications above, can Bacteremia be further specified? If so, please indicate below and in your Progress Notes and/ or Discharge Summary. Indicate if the condition was present on admission. PHYSICIAN RESPONSE: [ ] Sepsis [ ] Severe Sepsis [ ] Septic Shock [ ] Septicemia [ ] Sepsis now resolved [ x] SIRS due to non-infectious cause with organ dysfunction [ ] SIRS due to non-infectious cause without organ dysfunction [ ] Other: [ ] Comment/Explanation: Present on Admission: [ x] Yes (Y) [ ] Clinically undeterminable (W) [ ] No (N) [ ] Ruled Out Please also document response in your Progress Notes and/or Discharge Summary and indicate if the condition was present on admission Notes: SIRS/ SIRS WITH ORGAN DYSFUNCTION Systemic inflammatory response syndrome (SIRS) generally refers to the systemic response to trauma/quintero or other insult such as Acute Myocardial Infarction, Acute Pancreatitis, and Major Surgery with symptoms including fever, tachycardia , tachypnea, and leukocytosis (1). BACTEREMIA Presence of viable bacteria in the circulating blood (2). This term is reserved for patients that do not manifest above SIRS response. SEPTICEMIA Generally refers to a systemic disease associated with the presence of pathological microorganisms or toxins in the blood, which can include bacteria, viruses, fungi or other organisms (1). SEPSIS Generally refers to SIRS due infection (1). SEVERE SEPSIS Generally refers to sepsis associated with acute organ dysfunction (1). SEPTIC SHOCK Generally refers to circulatory failure associated with severe sepsis (2), and defined as hypotension or hypoperfusion despite adequate fluid resuscitation (1 hour) (3). REFERENCES: 1. [place] [employer]/Society of Critical Care Medicine Consensus Conference. Definitions for sepsis and organ failure and guidelines for the use of innovative therapies in sepsis. Critical Care Med 1992;20:864 - 74. 2. Lev y MM, Atif BRITTON, Osbaldo ARA, Pritesh E, David D, Ortiz D, Hendrickson J, Cutler SM , Russell JL, Aislinn G; International Sepsis Definitions Conference. 2001 SCCM/ESICM/ACCP/ATS/SIS International Sepsis Definitions Conference. Intensive Care Med. 2002;29(4):530-8. Epub 2002Jun 13. Review. PubMed PMID:[id number] 3. ICD-9-CM Official Guidelines for Coding and Reporting 4. Medscape Drugs, Diseases and Procedures references 5. [employer] Textbook of Internal Medicine. 18th Edition MTDD
[2017-08-17] MEDS: ZIAGEN PO SCH (11:54)
[2017-08-17] MEDS: SODIUM CHLORIDE FLUSH SYRINGE 10 ML IV SCH ×2 (11:54→22:11)
[2017-08-17] MEDS: TIVICAY (NF) PO SCH (11:55)
[2017-08-17] MEDS: PREZISTA PO SCH (11:55)
[2017-08-17] MEDS: PROTONIX PO SCH ×2 (11:55→22:10)
--- NOTE | 2017-08-17 17:28 | Progress Note ---
Assessment and Plan Assessment and plan: 82 year old -[place] female with medical history significant for dementia, HIV/AIDS, A. fib on anticoagulation was brought to the emergency department for the complains of shortness of breath. In the emergency department chest x-ray was done and showed pulmonary congestion, elevated creatinine Congestive heart failure - Diastolic CHF - Patient is on IV Lasix - Blood pressure is marginal and couldn't tolerate any other blood pressure medication Cor pulmonale - Pulmonary consulted Atrial fibrillation - Held Coumadin because of GI bleed TREY - Resolved Hypokalemia - will replace and check potassium Dementia - supportive care HIV/AIDS - Restart home medication GI bleed - Gl was consulted and they did EGD and showed 2 deep ulcers with fibrous base, no active bleeding - on PPI - Advance diet Hypernatremia - Resolved DVT prophylaxis - SCDs because of GI bleed Disposition -Pending placement to rehabilitation. History Interval history: Patient has severe dementia and she answer yes to every question. Patient was not in pain or in distress. Hospitalist Physical - Physical exam Narrative exam: Not in cardiopulmonary distress. The patient is morbidly obese. Vital signs as documented. Head exam is unremarkable. No scleral icterus . Neck is without jugular venous distension, thyromegaly, or carotid bruits. Lungs are clear to auscultation. Cardiac exam reveals irregular rate and Rhythm. Abdominal exam reveals normal bowel sounds. Extremities are nonedematous and both femoral and pedal pulses are normal. 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 No focal weakness. - Constitutional Vitals: Temp Pulse Resp BP Pulse Ox 97.5 F L 81 18 127/69 99 08/17/17 12:32 08/17/17 12:32 08/17/17 12:32 08/17/17 12:32 08/17/17 12:32 General appearance: Present: no acute distress Results - Labs CBC & Chem 7: 08/15/17 06:27 08/15/17 06:27 Labs: Laboratory Last Values WBC 9.3 K/mm3 (4.5-11.0) 08/14/17 06:54 RBC 3.25 M/mm3 (3.65-5.03) L 08/14/17 06:54 Hgb 9.0 gm/dl (10.1-14.3) L 08/15/17 06:27 Hct 27.0 % (30.3-42.9) L 08/15/17 06:27 MCV 81 fl (79-97) 08/14/17 06:54 MCH 27 pg (28-32) L 08/14/17 06:54 MCHC 33 % (30-34) 08/14/17 06:54 RDW 16.8 % (13.2-15.2) H 08/14/17 06:54 Plt Count 157 K/mm3 (140-440) 08/14/17 06:54 Lymph % (Auto) 15.6 % (13.4-35.0) 08/14/17 06:54 [place] % (Auto) 11.9 % (0.0-7.3) H 08/14/17 06:54 Eos % (Auto) 1.6 % (0.0-4.3) 08/14/17 06:54 Baso % (Auto) 0.2 % (0.0-1.8) 08/14/17 06:54 Lymph # 1.5 K/mm3 (1.2-5.4) 08/14/17 06:54 [place] # 1.1 K/mm3 (0.0-0.8) H 08/14/17 06:54 Eos # 0.1 K/mm3 (0.0-0.4) 08/14/17 06:54 Baso # 0.0 K/mm3 (0.0-0.1) 08/14/17 06:54 Add Manual Diff Complete 08/06/17 00:21 Total Counted 100 08/06/17 00:21 Seg Neutrophils % 70.7 % (40.0-70.0) H 08/14/17 06:54 Seg Neuts % (Manual) 84.0 % (40.0-70.0) H 08/06/17 00:21 Band Neutrophils % 2.0 % 08/06/17 00:21 Lymphocytes % (Manual) 6.0 % (13.4-35.0) L 08/06/17 00:21 Reactive Lymphs % (Man) 0 % 08/06/17 00:21 Monocytes % (Manual) 7.0 % (0.0-7.3) 08/06/17 00:21 Eosinophils % (Manual) 0 % (0.0-4.3) 08/06/17 00:21 Basophils % (Manual) 0 % (0.0-1.8) 08/06/17 00:21 Metamyelocytes % 0 % 08/06/17 00:21 Myelocytes % 1.0 % 08/06/17 00:21 Promyelocytes % 0 % 08/06/17 00:21 Blast Cells % 0 % 08/06/17 00:21 Nucleated RBC % 4.0 % (0.0-0.9) H 08/06/17 00:21 Seg Neutrophils # 6.6 K/mm3 (1.8-7.7) 08/14/17 06:54 Seg Neutrophils # Man 8.1 K/mm3 (1.8-7.7) H 08/06/17 00:21 Band Neutrophils # 0.2 K/mm3 08/06/17 00:21 Lymphocytes # (Manual) 0.6 K/mm3 (1.2-5.4) L 08/06/17 00:21 Abs React Lymphs (Man) 0.0 K/mm3 08/06/17 00:21 Monocytes # (Manual) 0.7 K/mm3 (0.0-0.8) 08/06/17 00:21 Eosinophils # (Manual) 0.0 K/mm3 (0.0-0.4) 08/06/17 00:21 Basophils # (Manual) 0.0 K/mm3 (0.0-0.1) 08/06/17 00:21 Metamyelocytes # 0.0 K/mm3 08/06/17 00:21 Myelocytes # 0.1 K/mm3 08/06/17 00:21 Promyelocytes # 0.0 K/mm3 08/06/17 00:21 Blast Cells # 0.0 K/mm3 08/06/17 00:21 WBC Morphology Not Reportable 08/06/17 00:21 Hypersegmented Neuts Not Reportable 08/06/17 00:21 Hyposegmented Neuts Not Reportable 08/06/17 00:21 Hypogranular Neuts Not Reportable 08/06/17 00:21 Smudge Cells Not Reportable 08/06/17 00:21 Toxic Granulation Not Reportable 08/06/17 00:21 Toxic Vacuolation Not Reportable 08/06/17 00:21 Dohle Bodies Not Reportable 08/06/17 00:21 Pelger-Huet Anomaly Not Reportable 08/06/17 00:21 [place] Rods Not Reportable 08/06/17 00:21 Platelet Estimate Consistent w auto 08/06/17 00:21 Clumped Platelets Not Reportable 08/06/17 00:21 Plt Clumps, EDTA Not Reportable 08/06/17 00:21 Large Platelets Not Reportable 08/06/17 00:21 Giant Platelets Not Reportable 08/06/17 00:21 Platelet Satelliting Not Reportable 08/06/17 00:21 Plt Morphology Comment Not Reportable 08/06/17 00:21 RBC Morphology Not Reportable 08/06/17 00:21 Dimorphic RBCs Not Reportable 08/06/17 00:21 Polychromasia Not Reportable 08/06/17 00:21 Hypochromasia 1+ 08/06/17 00:21 Poikilocytosis Not Reportable 08/06/17 00:21 Anisocytosis Not Reportable 08/06/17 00:21 Microcytosis Not Reportable 08/06/17 00:21 Macrocytosis Not Reportable 08/06/17 00:21 Spherocytes Not Reportable 08/06/17 00:21 Pappenheimer Bodies Not Reportable 08/06/17 00:21 Sickle Cells Not Reportable 08/06/17 00:21 Target Cells Few 08/06/17 00:21 Tear Drop Cells Not Reportable 08/06/17 00:21 Ovalocytes Not Reportable 08/06/17 00:21 Helmet Cells Not Reportable 08/06/17 00:21 [place] Bodies Not Reportable 08/06/17 00:21 [place] Rings Not Reportable 08/06/17 00:21 [place] Cells Not Reportable 08/06/17 00:21 Bite Cells Not Reportable 08/06/17 00:21 Crenated Cell Not Reportable 08/06/17 00:21 Elliptocytes Not Reportable 08/06/17 00:21 Acanthocytes (Spur) Not Reportable 08/06/17 00:21 Rouleaux Not Reportable 08/06/17 00:21 Hemoglobin C Crystals Not Reportable 08/06/17 00:21 Schistocytes Not Reportable 08/06/17 00:21 Malaria parasites Not Reportable 08/06/17 00:21 Carlo Bodies Not Reportable 08/06/17 00:21 Hem Pathologist Commnt No 08/06/17 00:21 PT 13.6 Sec. (12.2-14.9) 08/15/17 06:27 INR 0.99 (0.87-1.13) 08/15/17 06:27 APTT 24.2 Sec. (24.2-36.6) 08/06/17 00:21 D-Dimer 765.25 ng/mlDDU (0-234) H 08/06/17 00:21 POC ABG pH 7.625 (7.35-7.45) H 08/09/17 12:46 POC ABG pCO2 45.7 (35-45) H 08/09/17 12:46 POC ABG pO2 30 (80-105) L 08/09/17 12:46 POC ABG HCO3 47.5 08/09/17 12:46 POC ABG Total CO2 49 08/09/17 12:46 POC ABG O2 Sat 69 08/09/17 12:46 POC ABG Base Excess 26 08/09/17 12:46 FiO2 21 % 08/09/17 12:46 Sodium 138 mmol/L (137-145) 08/15/17 06:27 Potassium 3.5 mmol/L (3.6-5.0) L 08/15/17 06:27 Chloride 92.9 mmol/L (98-107) L 08/15/17 06:27 Carbon Dioxide 38 mmol/L (22-30) H 08/15/17 06:27 Anion Gap 11 mmol/L 08/15/17 06:27 BUN 13 mg/dL (7-17) 08/15/17 06:27 Creatinine 1.0 mg/dL (0.7-1.2) 08/15/17 06:27 Estimated GFR > 60 ml/min 08/15/17 06:27 BUN/Creatinine Ratio 13 % 08/15/17 06:27 Glucose 91 mg/dL (65-100) 08/15/17 06:27 Calcium 7.6 mg/dL (8.4-10.2) L 08/15/17 06:27 Total Creatine Kinase 37 units/L (30-135) 08/06/17 12:45 CK-MB (CK-2) < 1.0 ng/mL (0.0-4.0) 08/06/17 12:45 CK-MB (CK-2) Rel Index 2.7 (0-4) 08/06/17 12:45 Troponin T < 0.010 ng/mL (0.00-0.029) 08/06/17 12:45 Blood Type A POSITIVE 08/09/17 19:52 Antibody Screen Negative 08/09/17 19:52 Crossmatch See Detail 08/09/17 19:52
[2017-08-18] MEDS: LASIX IV SCH ×2 (06:30→19:37)
[2017-08-18 08:24] LABS: Basophils % (Auto) 0.5 % (0.0-1.8); Eosinophils % (Auto) 0.5 % (0.0-4.3); Hematocrit 26.3 % (30.3-42.9); Hemoglobin 8.5 gm/dl (10.1-14.3); Lymphocytes # (Auto) 1.8 K/mm3 (1.2-5.4); Lymphocytes % (Auto) 20.7 % (13.4-35.0); Mean Corpuscular HGB Conc 32 % (30-34); Mean Corpuscular Hemoglobin 27 pg (28-32); Mean Corpuscular Volume 83 fl (79-97); Monocytes # (Auto) 1.3 K/mm3 (0.0-0.8); Monocytes % (Auto) 14.7 % (0.0-7.3); Platelet Count 257 K/mm3 (140-440); Red Blood Count 3.17 M/mm3 (3.65-5.03); Red Cell Distribution Width 17.8 % (13.2-15.2)
[2017-08-18 08:42] LABS: BUN/Creatinine Ratio 10; Blood Urea Nitrogen 10 mg/dL (7-17); Calcium 7.6 mg/dL (8.4-10.2); Hemolysis Index 0
[2017-08-18] MEDS ORDERED: POTASSIUM CHLORIDE FEEDTUBE ONE (09:35)
[2017-08-18] MEDS: PREZISTA PO SCH (11:16)
[2017-08-18] MEDS: PROTONIX PO SCH ×2 (11:16→22:47)
[2017-08-18] MEDS: ZIAGEN PO SCH (11:16)
[2017-08-18] MEDS: SODIUM CHLORIDE FLUSH SYRINGE 10 ML IV SCH ×2 (11:17→22:47)
[2017-08-18] MEDS: LOPRESSOR PO SCH ×2 (11:17→22:44)
[2017-08-18] MEDS: TIVICAY (NF) PO SCH (11:17)
--- NOTE | 2017-08-18 15:44 | Progress Note ---
Assessment and Plan Assessment and plan: 82 year old -[place]gian female with medical history significant for dementia, HIV/AIDS, A. fib on anticoagulation was brought to the emergency department for the complains of shortness of breath. In the emergency department chest x-ray was done and showed pulmonary congestion, elevated creatinine Congestive heart failure - Diastolic CHF - Patient is on IV Lasix - Blood pressure is marginal and couldn't tolerate any other blood pressure medication Cor pulmonale - Pulmonary consulted Atrial fibrillation - Held Coumadin because of GI bleed TREY - Resolved Hypokalemia - repleted - will check Dementia - supportive care HIV/AIDS - Restart home medication GI bleed - Gl was consulted and they did EGD and showed 2 deep ulcers with fibrous base, no active bleeding - on PPI - Advance diet Hypernatremia - Resolved DVT prophylaxis - SCDs because of GI bleed Disposition -Pending placement to rehabilitation. History Interval history: Patient has severe dementia and she answer yes to every question. Patient was not in pain or in distress. Hospitalist Physical - Physical exam Narrative exam: Not in cardiopulmonary distress. The patient is morbidly obese. Vital signs as documented. Head exam is unremarkable. No scleral icterus . Neck is without jugular venous distension, thyromegaly, or carotid bruits. Lungs are clear to auscultation. Cardiac exam reveals irregular rate and Rhythm. Abdominal exam reveals normal bowel sounds. Extremities are nonedematous. 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 - Constitutional Vitals: Temp Pulse Resp BP Pulse Ox 98.0 F 78 18 127/75 92 08/18/17 12:35 08/18/17 12:35 08/18/17 12:35 08/18/17 12:35 08/18/17 12:35 General appearance: Present: no acute distress Results - Labs CBC & Chem 7: 08/18/17 07:22 08/18/17 07:22 Labs: Laboratory Last Values WBC 8.8 K/mm3 (4.5-11.0) 08/18/17 07:22 RBC 3.17 M/mm3 (3.65-5.03) L 08/18/17 07:22 Hgb 8.5 gm/dl (10.1-14.3) L 08/18/17 07:22 Hct 26.3 % (30.3-42.9) L 08/18/17 07:22 MCV 83 fl (79-97) 08/18/17 07:22 MCH 27 pg (28-32) L 08/18/17 07:22 MCHC 32 % (30-34) 08/18/17 07:22 RDW 17.8 % (13.2-15.2) H 08/18/17 07:22 Plt Count 257 K/mm3 (140-440) 08/18/17 07:22 Lymph % (Auto) 20.7 % (13.4-35.0) 08/18/17 07:22 [place] % (Auto) 14.7 % (0.0-7.3) H 08/18/17 07:22 Eos % (Auto) 0.5 % (0.0-4.3) 08/18/17 07:22 Baso % (Auto) 0.5 % (0.0-1.8) 08/18/17 07:22 Lymph # 1.8 K/mm3 (1.2-5.4) 08/18/17 07:22 [place] # 1.3 K/mm3 (0.0-0.8) H 08/18/17 07:22 Eos # 0.0 K/mm3 (0.0-0.4) 08/18/17 07:22 Baso # 0.0 K/mm3 (0.0-0.1) 08/18/17 07:22 Add Manual Diff Complete 08/06/17 00:21 Total Counted 100 08/06/17 00:21 Seg Neutrophils % 63.6 % (40.0-70.0) 08/18/17 07:22 Seg Neuts % (Manual) 84.0 % (40.0-70.0) H 08/06/17 00:21 Band Neutrophils % 2.0 % 08/06/17 00:21 Lymphocytes % (Manual) 6.0 % (13.4-35.0) L 08/06/17 00:21 Reactive Lymphs % (Man) 0 % 08/06/17 00:21 Monocytes % (Manual) 7.0 % (0.0-7.3) 08/06/17 00:21 Eosinophils % (Manual) 0 % (0.0-4.3) 08/06/17 00:21 Basophils % (Manual) 0 % (0.0-1.8) 08/06/17 00:21 Metamyelocytes % 0 % 08/06/17 00:21 Myelocytes % 1.0 % 08/06/17 00:21 Promyelocytes % 0 % 08/06/17 00:21 Blast Cells % 0 % 08/06/17 00:21 Nucleated RBC % 4.0 % (0.0-0.9) H 08/06/17 00:21 Seg Neutrophils # 5.6 K/mm3 (1.8-7.7) 08/18/17 07:22 Seg Neutrophils # Man 8.1 K/mm3 (1.8-7.7) H 08/06/17 00:21 Band Neutrophils # 0.2 K/mm3 08/06/17 00:21 Lymphocytes # (Manual) 0.6 K/mm3 (1.2-5.4) L 08/06/17 00:21 Abs React Lymphs (Man) 0.0 K/mm3 08/06/17 00:21 Monocytes # (Manual) 0.7 K/mm3 (0.0-0.8) 08/06/17 00:21 Eosinophils # (Manual) 0.0 K/mm3 (0.0-0.4) 08/06/17 00:21 Basophils # (Manual) 0.0 K/mm3 (0.0-0.1) 08/06/17 00:21 Metamyelocytes # 0.0 K/mm3 08/06/17 00:21 Myelocytes # 0.1 K/mm3 08/06/17 00:21 Promyelocytes # 0.0 K/mm3 08/06/17 00:21 Blast Cells # 0.0 K/mm3 08/06/17 00:21 WBC Morphology Not Reportable 08/06/17 00:21 Hypersegmented Neuts Not Reportable 08/06/17 00:21 Hyposegmented Neuts Not Reportable 08/06/17 00:21 Hypogranular Neuts Not Reportable 08/06/17 00:21 Smudge Cells Not Reportable 08/06/17 00:21 Toxic Granulation Not Reportable 08/06/17 00:21 Toxic Vacuolation Not Reportable 08/06/17 00:21 Dohle Bodies Not Reportable 08/06/17 00:21 Pelger-Huet Anomaly Not Reportable 08/06/17 00:21 [place] Rods Not Reportable 08/06/17 00:21 Platelet Estimate Consistent w auto 08/06/17 00:21 Clumped Platelets Not Reportable 08/06/17 00:21 Plt Clumps, EDTA Not Reportable 08/06/17 00:21 Large Platelets Not Reportable 08/06/17 00:21 Giant Platelets Not Reportable 08/06/17 00:21 Platelet Satelliting Not Reportable 08/06/17 00:21 Plt Morphology Comment Not Reportable 08/06/17 00:21 RBC Morphology Not Reportable 08/06/17 00:21 Dimorphic RBCs Not Reportable 08/06/17 00:21 Polychromasia Not Reportable 08/06/17 00:21 Hypochromasia 1+ 08/06/17 00:21 Poikilocytosis Not Reportable 08/06/17 00:21 Anisocytosis Not Reportable 08/06/17 00:21 Microcytosis Not Reportable 08/06/17 00:21 Macrocytosis Not Reportable 08/06/17 00:21 Spherocytes Not Reportable 08/06/17 00:21 Pappenheimer Bodies Not Reportable 08/06/17 00:21 Sickle Cells Not Reportable 08/06/17 00:21 Target Cells Few 08/06/17 00:21 Tear Drop Cells Not Reportable 08/06/17 00:21 Ovalocytes Not Reportable 08/06/17 00:21 Helmet Cells Not Reportable 08/06/17 00:21 Cheek-[place] Bodies Not Reportable 08/06/17 00:21 [place] Rings Not Reportable 08/06/17 00:21 [place] Cells Not Reportable 08/06/17 00:21 Bite Cells Not Reportable 08/06/17 00:21 Crenated Cell Not Reportable 08/06/17 00:21 Elliptocytes Not Reportable 08/06/17 00:21 Acanthocytes (Spur) Not Reportable 08/06/17 00:21 Rouleaux Not Reportable 08/06/17 00:21 Hemoglobin C Crystals Not Reportable 08/06/17 00:21 Schistocytes Not Reportable 08/06/17 00:21 Malaria parasites Not Reportable 08/06/17 00:21 Carlo Bodies Not Reportable 08/06/17 00:21 Hem Pathologist Commnt No 08/06/17 00:21 PT 13.6 Sec. (12.2-14.9) 08/15/17 06:27 INR 0.99 (0.87-1.13) 08/15/17 06:27 APTT 24.2 Sec. (24.2-36.6) 08/06/17 00:21 D-Dimer 765.25 ng/mlDDU (0-234) H 08/06/17 00:21 POC ABG pH 7.625 (7.35-7.45) H 08/09/17 12:46 POC ABG pCO2 45.7 (35-45) H 08/09/17 12:46 POC ABG pO2 30 (80-105) L 08/09/17 12:46 POC ABG HCO3 47.5 08/09/17 12:46 POC ABG Total CO2 49 08/09/17 12:46 POC ABG O2 Sat 69 08/09/17 12:46 POC ABG Base Excess 26 08/09/17 12:46 FiO2 21 % 08/09/17 12:46 Sodium 139 mmol/L (137-145) 08/18/17 07:22 Potassium 2.7 mmol/L (3.6-5.0) L* D 08/18/17 07:22 Chloride 88.6 mmol/L (98-107) L 08/18/17 07:22 Carbon Dioxide 39 mmol/L (22-30) H 08/18/17 07:22 Anion Gap 14 mmol/L 08/18/17 07:22 BUN 10 mg/dL (7-17) 08/18/17 07:22 Creatinine 1.0 mg/dL (0.7-1.2) 08/18/17 07:22 Estimated GFR > 60 ml/min 08/18/17 07:22 BUN/Creatinine Ratio 10 % 08/18/17 07:22 Glucose 94 mg/dL (65-100) 08/18/17 07:22 POC Glucose 121 (70-105) H 08/18/17 12:42 Calcium 7.6 mg/dL (8.4-10.2) L 08/18/17 07:22 Total Creatine Kinase 37 units/L (30-135) 08/06/17 12:45 CK-MB (CK-2) < 1.0 ng/mL (0.0-4.0) 08/06/17 12:45 CK-MB (CK-2) Rel Index 2.7 (0-4) 08/06/17 12:45 Troponin T < 0.010 ng/mL (0.00-0.029) 08/06/17 12:45 Blood Type A POSITIVE 08/09/17 19:52 Antibody Screen Negative 08/09/17 19:52 Crossmatch See Detail 08/09/17 19:52
[2017-08-18 17:19] LABS: BUN/Creatinine Ratio 10; Blood Urea Nitrogen 10 mg/dL (7-17); Calcium 7.7 mg/dL (8.4-10.2); Hemolysis Index 13
[2017-08-19] MEDS: LASIX IV SCH ×2 (07:05→17:09)
[2017-08-19 09:25] LABS: BUN/Creatinine Ratio 10; Blood Urea Nitrogen 10 mg/dL (7-17); Calcium 7.7 mg/dL (8.4-10.2); Hemolysis Index 7
[2017-08-19] MEDS: PREZISTA PO SCH (10:48)
[2017-08-19] MEDS: LOPRESSOR PO SCH ×2 (10:48→22:28)
[2017-08-19] MEDS: TIVICAY (NF) PO SCH (10:49)
[2017-08-19] MEDS: ZIAGEN PO SCH (10:49)
[2017-08-19] MEDS: SODIUM CHLORIDE FLUSH SYRINGE 10 ML IV SCH ×2 (10:49→22:28)
[2017-08-19] MEDS: PROTONIX PO SCH ×2 (10:49→22:27)
--- NOTE | 2017-08-19 14:23 | Progress Note ---
Assessment and Plan Assessment and plan: 82 year old -Luxembour[place] female with medical history significant for dementia, HIV/AIDS, A. fib on anticoagulation was brought to the emergency department for the complains of shortness of breath. In the emergency department chest x-ray was done and showed pulmonary congestion, elevated creatinine Congestive heart failure - Diastolic CHF - On IV lasix Cor pulmonale - Pulmonary consulted Atrial fibrillation - Held Coumadin because of GI bleed TREY - Resolved Hypokalemia - repleted - will check Dementia - supportive care HIV/AIDS - Restart home medication GI bleed - Gl was consulted and they did EGD and showed 2 deep ulcers with fibrous base, no active bleeding - on PPI - Advance diet Hypernatremia - Resolved DVT prophylaxis - SCDs because of GI bleed Disposition -Pending placement to rehabilitation. History Interval history: Patient has severe dementia and she answer yes to every question. Patient was not in pain or in distress. Hospitalist Physical - Physical exam Narrative exam: Not in cardiopulmonary distress. The patient is morbidly obese. Vital signs as documented. Head exam is unremarkable. No scleral icterus . Neck is without jugular venous distension, thyromegaly, or carotid bruits. Lungs are clear to auscultation. Cardiac exam reveals irregular rate and Rhythm. Abdominal exam reveals normal bowel sounds. Extremities are nonedematous. 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 - Constitutional Vitals: Temp Pulse Resp BP Pulse Ox 98.1 F 70 20 170/83 100 08/19/17 08:44 08/19/17 10:00 08/19/17 10:00 08/19/17 08:44 08/19/17 10:00 General appearance: Present: no acute distress Results - Labs CBC & Chem 7: 08/18/17 07:22 08/19/17 07:47 Labs: Laboratory Last Values WBC 8.8 K/mm3 (4.5-11.0) 08/18/17 07:22 RBC 3.17 M/mm3 (3.65-5.03) L 08/18/17 07:22 Hgb 8.5 gm/dl (10.1-14.3) L 08/18/17 07:22 Hct 26.3 % (30.3-42.9) L 08/18/17 07:22 MCV 83 fl (79-97) 08/18/17 07:22 MCH 27 pg (28-32) L 08/18/17 07:22 MCHC 32 % (30-34) 08/18/17 07:22 RDW 17.8 % (13.2-15.2) H 08/18/17 07:22 Plt Count 257 K/mm3 (140-440) 08/18/17 07:22 Lymph % (Auto) 20.7 % (13.4-35.0) 08/18/17 07:22 [place] % (Auto) 14.7 % (0.0-7.3) H 08/18/17 07:22 Eos % (Auto) 0.5 % (0.0-4.3) 08/18/17 07:22 Baso % (Auto) 0.5 % (0.0-1.8) 08/18/17 07:22 Lymph # 1.8 K/mm3 (1.2-5.4) 08/18/17 07:22 [place] # 1.3 K/mm3 (0.0-0.8) H 08/18/17 07:22 Eos # 0.0 K/mm3 (0.0-0.4) 08/18/17 07:22 Baso # 0.0 K/mm3 (0.0-0.1) 08/18/17 07:22 Add Manual Diff Complete 08/06/17 00:21 Total Counted 100 08/06/17 00:21 Seg Neutrophils % 63.6 % (40.0-70.0) 08/18/17 07:22 Seg Neuts % (Manual) 84.0 % (40.0-70.0) H 08/06/17 00:21 Band Neutrophils % 2.0 % 08/06/17 00:21 Lymphocytes % (Manual) 6.0 % (13.4-35.0) L 08/06/17 00:21 Reactive Lymphs % (Man) 0 % 08/06/17 00:21 Monocytes % (Manual) 7.0 % (0.0-7.3) 08/06/17 00:21 Eosinophils % (Manual) 0 % (0.0-4.3) 08/06/17 00:21 Basophils % (Manual) 0 % (0.0-1.8) 08/06/17 00:21 Metamyelocytes % 0 % 08/06/17 00:21 Myelocytes % 1.0 % 08/06/17 00:21 Promyelocytes % 0 % 08/06/17 00:21 Blast Cells % 0 % 08/06/17 00:21 Nucleated RBC % 4.0 % (0.0-0.9) H 08/06/17 00:21 Seg Neutrophils # 5.6 K/mm3 (1.8-7.7) 08/18/17 07:22 Seg Neutrophils # Man 8.1 K/mm3 (1.8-7.7) H 08/06/17 00:21 Band Neutrophils # 0.2 K/mm3 08/06/17 00:21 Lymphocytes # (Manual) 0.6 K/mm3 (1.2-5.4) L 08/06/17 00:21 Abs React Lymphs (Man) 0.0 K/mm3 08/06/17 00:21 Monocytes # (Manual) 0.7 K/mm3 (0.0-0.8) 08/06/17 00:21 Eosinophils # (Manual) 0.0 K/mm3 (0.0-0.4) 08/06/17 00:21 Basophils # (Manual) 0.0 K/mm3 (0.0-0.1) 08/06/17 00:21 Metamyelocytes # 0.0 K/mm3 08/06/17 00:21 Myelocytes # 0.1 K/mm3 08/06/17 00:21 Promyelocytes # 0.0 K/mm3 08/06/17 00:21 Blast Cells # 0.0 K/mm3 08/06/17 00:21 WBC Morphology Not Reportable 08/06/17 00:21 Hypersegmented Neuts Not Reportable 08/06/17 00:21 Hyposegmented Neuts Not Reportable 08/06/17 00:21 Hypogranular Neuts Not Reportable 08/06/17 00:21 Smudge Cells Not Reportable 08/06/17 00:21 Toxic Granulation Not Reportable 08/06/17 00:21 Toxic Vacuolation Not Reportable 08/06/17 00:21 Dohle Bodies Not Reportable 08/06/17 00:21 Pelger-Huet Anomaly Not Reportable 08/06/17 00:21 [place] Rods Not Reportable 08/06/17 00:21 Platelet Estimate Consistent w auto 08/06/17 00:21 Clumped Platelets Not Reportable 08/06/17 00:21 Plt Clumps, EDTA Not Reportable 08/06/17 00:21 Large Platelets Not Reportable 08/06/17 00:21 Giant Platelets Not Reportable 08/06/17 00:21 Platelet Satelliting Not Reportable 08/06/17 00:21 Plt Morphology Comment Not Reportable 08/06/17 00:21 RBC Morphology Not Reportable 08/06/17 00:21 Dimorphic RBCs Not Reportable 08/06/17 00:21 Polychromasia Not Reportable 08/06/17 00:21 Hypochromasia 1+ 08/06/17 00:21 Poikilocytosis Not Reportable 08/06/17 00:21 Anisocytosis Not Reportable 08/06/17 00:21 Microcytosis Not Reportable 08/06/17 00:21 Macrocytosis Not Reportable 08/06/17 00:21 Spherocytes Not Reportable 08/06/17 00:21 Pappenheimer Bodies Not Reportable 08/06/17 00:21 Sickle Cells Not Reportable 08/06/17 00:21 Target Cells Few 08/06/17 00:21 Tear Drop Cells Not Reportable 08/06/17 00:21 Ovalocytes Not Reportable 08/06/17 00:21 Helmet Cells Not Reportable 08/06/17 00:21 Cheek-[place] Bodies Not Reportable 08/06/17 00:21 [place] Rings Not Reportable 08/06/17 00:21 [place] Cells Not Reportable 08/06/17 00:21 Bite Cells Not Reportable 08/06/17 00:21 Crenated Cell Not Reportable 08/06/17 00:21 Elliptocytes Not Reportable 08/06/17 00:21 Acanthocytes (Spur) Not Reportable 08/06/17 00:21 Rouleaux Not Reportable 08/06/17 00:21 Hemoglobin C Crystals Not Reportable 08/06/17 00:21 Schistocytes Not Reportable 08/06/17 00:21 Malaria parasites Not Reportable 08/06/17 00:21 Carlo Bodies Not Reportable 08/06/17 00:21 Hem Pathologist Commnt No 08/06/17 00:21 PT 13.6 Sec. (12.2-14.9) 08/15/17 06:27 INR 0.99 (0.87-1.13) 08/15/17 06:27 APTT 24.2 Sec. (24.2-36.6) 08/06/17 00:21 D-Dimer 765.25 ng/mlDDU (0-234) H 08/06/17 00:21 POC ABG pH 7.625 (7.35-7.45) H 08/09/17 12:46 POC ABG pCO2 45.7 (35-45) H 08/09/17 12:46 POC ABG pO2 30 (80-105) L 08/09/17 12:46 POC ABG HCO3 47.5 08/09/17 12:46 POC ABG Total CO2 49 08/09/17 12:46 POC ABG O2 Sat 69 08/09/17 12:46 POC ABG Base Excess 26 08/09/17 12:46 FiO2 21 % 08/09/17 12:46 Sodium 142 mmol/L (137-145) 08/19/17 07:47 Potassium 3.9 mmol/L (3.6-5.0) 08/19/17 07:47 Chloride 99.1 mmol/L (98-107) 08/19/17 07:47 Carbon Dioxide 35 mmol/L (22-30) H 08/19/17 07:47 Anion Gap 12 mmol/L 08/19/17 07:47 BUN 10 mg/dL (7-17) 08/19/17 07:47 Creatinine 1.0 mg/dL (0.7-1.2) 08/19/17 07:47 Estimated GFR > 60 ml/min 08/19/17 07:47 BUN/Creatinine Ratio 10 % 08/19/17 07:47 Glucose 88 mg/dL (65-100) 08/19/17 07:47 POC Glucose 99 (70-105) 08/19/17 06:26 Calcium 7.7 mg/dL (8.4-10.2) L 08/19/17 07:47 Total Creatine Kinase 37 units/L (30-135) 08/06/17 12:45 CK-MB (CK-2) < 1.0 ng/mL (0.0-4.0) 08/06/17 12:45 CK-MB (CK-2) Rel Index 2.7 (0-4) 08/06/17 12:45 Troponin T < 0.010 ng/mL (0.00-0.029) 08/06/17 12:45 Blood Type A POSITIVE 08/09/17 19:52 Antibody Screen Negative 08/09/17 19:52 Crossmatch See Detail 08/09/17 19:52
[2017-08-20] MEDS: LASIX IV SCH ×2 (05:05→17:39)
[2017-08-20 08:15] LABS: BUN/Creatinine Ratio 11; Blood Urea Nitrogen 11 mg/dL (7-17); Calcium 8.2 mg/dL (8.4-10.2); Hemolysis Index 119
[2017-08-20] MEDS: TIVICAY (NF) PO SCH (09:37)
[2017-08-20] MEDS: ZIAGEN PO SCH (09:37)
[2017-08-20] MEDS: SODIUM CHLORIDE FLUSH SYRINGE 10 ML IV SCH ×2 (09:38→22:21)
[2017-08-20] MEDS: LOPRESSOR PO SCH ×2 (09:38→22:20)
[2017-08-20] MEDS: PROTONIX PO SCH ×2 (09:38→22:21)
[2017-08-20] MEDS: PREZISTA PO SCH (09:38)
--- NOTE | 2017-08-20 14:54 | Progress Note ---
Assessment and Plan Assessment and plan: 82 year old -N[place]ian female with medical history significant for dementia, HIV/AIDS, A. fib on anticoagulation was brought to the emergency department for the complains of shortness of breath. In the emergency department chest x-ray was done and showed pulmonary congestion, elevated creatinine Congestive heart failure - Diastolic CHF - On IV lasix Cor pulmonale - Pulmonary consulted Atrial fibrillation - Held Coumadin because of GI bleed TREY - Resolved Hypokalemia - repleted - will check Dementia - supportive care HIV/AIDS - Restart home medication GI bleed - Gl was consulted and they did EGD and showed 2 deep ulcers with fibrous base, no active bleeding - on PPI - Advance diet Hypernatremia - Resolved DVT prophylaxis - SCDs because of GI bleed Disposition -Pending placement to rehabilitation. patient is medically stable. History Interval history: Patient has dementia, oriented to self and place. Patient was not in pain or in distress. Hospitalist Physical - Physical exam Narrative exam: Not in cardiopulmonary distress. The patient is morbidly obese. Vital signs as documented. Head exam is unremarkable. No scleral icterus . Neck is without jugular venous distension, thyromegaly, or carotid bruits. Lungs are clear to auscultation. Cardiac exam reveals irregular rate and Rhythm. Abdominal exam reveals normal bowel sounds. Extremities are nonedematous. 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 - Constitutional Vitals: Temp Pulse Resp BP Pulse Ox 98.3 F 87 20 104/61 100 08/19/17 23:43 08/20/17 11:47 08/20/17 11:47 08/20/17 11:47 08/20/17 11:47 General appearance: Present: no acute distress Results - Labs CBC & Chem 7: 08/18/17 07:22 08/20/17 06:45 Labs: Laboratory Last Values WBC 8.8 K/mm3 (4.5-11.0) 08/18/17 07:22 RBC 3.17 M/mm3 (3.65-5.03) L 08/18/17 07:22 Hgb 8.5 gm/dl (10.1-14.3) L 08/18/17 07:22 Hct 26.3 % (30.3-42.9) L 08/18/17 07:22 MCV 83 fl (79-97) 08/18/17 07:22 MCH 27 pg (28-32) L 08/18/17 07:22 MCHC 32 % (30-34) 08/18/17 07:22 RDW 17.8 % (13.2-15.2) H 08/18/17 07:22 Plt Count 257 K/mm3 (140-440) 08/18/17 07:22 Lymph % (Auto) 20.7 % (13.4-35.0) 08/18/17 07:22 [place] % (Auto) 14.7 % (0.0-7.3) H 08/18/17 07:22 Eos % (Auto) 0.5 % (0.0-4.3) 08/18/17 07:22 Baso % (Auto) 0.5 % (0.0-1.8) 08/18/17 07:22 Lymph # 1.8 K/mm3 (1.2-5.4) 08/18/17 07:22 [place] # 1.3 K/mm3 (0.0-0.8) H 08/18/17 07:22 Eos # 0.0 K/mm3 (0.0-0.4) 08/18/17 07:22 Baso # 0.0 K/mm3 (0.0-0.1) 08/18/17 07:22 Add Manual Diff Complete 08/06/17 00:21 Total Counted 100 08/06/17 00:21 Seg Neutrophils % 63.6 % (40.0-70.0) 08/18/17 07:22 Seg Neuts % (Manual) 84.0 % (40.0-70.0) H 08/06/17 00:21 Band Neutrophils % 2.0 % 08/06/17 00:21 Lymphocytes % (Manual) 6.0 % (13.4-35.0) L 08/06/17 00:21 Reactive Lymphs % (Man) 0 % 08/06/17 00:21 Monocytes % (Manual) 7.0 % (0.0-7.3) 08/06/17 00:21 Eosinophils % (Manual) 0 % (0.0-4.3) 08/06/17 00:21 Basophils % (Manual) 0 % (0.0-1.8) 08/06/17 00:21 Metamyelocytes % 0 % 08/06/17 00:21 Myelocytes % 1.0 % 08/06/17 00:21 Promyelocytes % 0 % 08/06/17 00:21 Blast Cells % 0 % 08/06/17 00:21 Nucleated RBC % 4.0 % (0.0-0.9) H 08/06/17 00:21 Seg Neutrophils # 5.6 K/mm3 (1.8-7.7) 08/18/17 07:22 Seg Neutrophils # Man 8.1 K/mm3 (1.8-7.7) H 08/06/17 00:21 Band Neutrophils # 0.2 K/mm3 08/06/17 00:21 Lymphocytes # (Manual) 0.6 K/mm3 (1.2-5.4) L 08/06/17 00:21 Abs React Lymphs (Man) 0.0 K/mm3 08/06/17 00:21 Monocytes # (Manual) 0.7 K/mm3 (0.0-0.8) 08/06/17 00:21 Eosinophils # (Manual) 0.0 K/mm3 (0.0-0.4) 08/06/17 00:21 Basophils # (Manual) 0.0 K/mm3 (0.0-0.1) 08/06/17 00:21 Metamyelocytes # 0.0 K/mm3 08/06/17 00:21 Myelocytes # 0.1 K/mm3 08/06/17 00:21 Promyelocytes # 0.0 K/mm3 08/06/17 00:21 Blast Cells # 0.0 K/mm3 08/06/17 00:21 WBC Morphology Not Reportable 08/06/17 00:21 Hypersegmented Neuts Not Reportable 08/06/17 00:21 Hyposegmented Neuts Not Reportable 08/06/17 00:21 Hypogranular Neuts Not Reportable 08/06/17 00:21 Smudge Cells Not Reportable 08/06/17 00:21 Toxic Granulation Not Reportable 08/06/17 00:21 Toxic Vacuolation Not Reportable 08/06/17 00:21 Dohle Bodies Not Reportable 08/06/17 00:21 Pelger-Huet Anomaly Not Reportable 08/06/17 00:21 [place] Rods Not Reportable 05/21/18 00:21 Platelet Estimate Consistent w auto 08/06/17 00:21 Clumped Platelets Not Reportable 08/06/17 00:21 Plt Clumps, EDTA Not Reportable 08/06/17 00:21 Large Platelets Not Reportable 08/06/17 00:21 Giant Platelets Not Reportable 08/06/17 00:21 Platelet Satelliting Not Reportable 08/06/17 00:21 Plt Morphology Comment Not Reportable 08/06/17 00:21 RBC Morphology Not Reportable 08/06/17 00:21 Dimorphic RBCs Not Reportable 08/06/17 00:21 Polychromasia Not Reportable 08/06/17 00:21 Hypochromasia 1+ 08/06/17 00:21 Poikilocytosis Not Reportable 08/06/17 00:21 Anisocytosis Not Reportable 08/06/17 00:21 Microcytosis Not Reportable 08/06/17 00:21 Macrocytosis Not Reportable 08/06/17 00:21 Spherocytes Not Reportable 08/06/17 00:21 Pappenheimer Bodies Not Reportable 08/06/17 00:21 Sickle Cells Not Reportable 08/06/17 00:21 Target Cells Few 08/06/17 00:21 Tear Drop Cells Not Reportable 08/06/17 00:21 Ovalocytes Not Reportable 08/06/17 00:21 Helmet Cells Not Reportable 08/06/17 00:21 [place] Bodies Not Reportable 08/06/17 00:21 [place] Rings Not Reportable 08/06/17 00:21 [place] Cells Not Reportable 08/06/17 00:21 Bite Cells Not Reportable 08/06/17 00:21 Crenated Cell Not Reportable 08/06/17 00:21 Elliptocytes Not Reportable 08/06/17 00:21 Acanthocytes (Spur) Not Reportable 08/06/17 00:21 Rouleaux Not Reportable 08/06/17 00:21 Hemoglobin C Crystals Not Reportable 08/06/17 00:21 Schistocytes Not Reportable 08/06/17 00:21 Malaria parasites Not Reportable 08/06/17 00:21 Carlo Bodies Not Reportable 08/06/17 00:21 Hem Pathologist Commnt No 08/06/17 00:21 PT 13.6 Sec. (12.2-14.9) 08/15/17 06:27 INR 0.99 (0.87-1.13) 08/15/17 06:27 APTT 24.2 Sec. (24.2-36.6) 08/06/17 00:21 D-Dimer 765.25 ng/mlDDU (0-234) H 08/06/17 00:21 POC ABG pH 7.625 (7.35-7.45) H 08/09/17 12:46 POC ABG pCO2 45.7 (35-45) H 08/09/17 12:46 POC ABG pO2 30 (80-105) L 08/09/17 12:46 POC ABG HCO3 47.5 08/09/17 12:46 POC ABG Total CO2 49 08/09/17 12:46 POC ABG O2 Sat 69 08/09/17 12:46 POC ABG Base Excess 26 08/09/17 12:46 FiO2 21 % 08/09/17 12:46 Sodium 141 mmol/L (137-145) 08/20/17 06:45 Potassium 4.9 mmol/L (3.6-5.0) D 08/20/17 06:45 Chloride 98.1 mmol/L (98-107) 08/20/17 06:45 Carbon Dioxide 29 mmol/L (22-30) 08/20/17 06:45 Anion Gap 19 mmol/L 08/20/17 06:45 BUN 11 mg/dL (7-17) 08/20/17 06:45 Creatinine 1.0 mg/dL (0.7-1.2) 08/20/17 06:45 Estimated GFR > 60 ml/min 08/20/17 06:45 BUN/Creatinine Ratio 11 % 08/20/17 06:45 Glucose 87 mg/dL (65-100) 08/20/17 06:45 POC Glucose 146 (70-105) H 08/20/17 12:11 Calcium 8.2 mg/dL (8.4-10.2) L 08/20/17 06:45 Total Creatine Kinase 37 units/L (30-135) 08/06/17 12:45 CK-MB (CK-2) < 1.0 ng/mL (0.0-4.0) 08/06/17 12:45 CK-MB (CK-2) Rel Index 2.7 (0-4) 08/06/17 12:45 Troponin T < 0.010 ng/mL (0.00-0.029) 08/06/17 12:45 Blood Type A POSITIVE 08/09/17 19:52 Antibody Screen Negative 08/09/17 19:52 Crossmatch See Detail 08/09/17 19:52
[2017-08-21] MEDS: LASIX IV SCH ×2 (05:08→17:00)
[2017-08-21] MEDS: LOPRESSOR PO SCH ×2 (10:14→22:50)
[2017-08-21] MEDS: PREZISTA PO SCH (10:14)
[2017-08-21] MEDS: TIVICAY (NF) PO SCH (10:14)
[2017-08-21] MEDS: ZIAGEN PO SCH (10:15)
[2017-08-21] MEDS: SODIUM CHLORIDE FLUSH SYRINGE 10 ML IV SCH ×2 (10:15→22:50)
[2017-08-21] MEDS: PROTONIX PO SCH ×2 (10:15→22:50)
--- NOTE | 2017-08-21 16:57 | Progress Note ---
Assessment and Plan Assessment and plan: 82 year old -[place] female with medical history significant for dementia, HIV/AIDS, A. fib on anticoagulation was brought to the emergency department for the complains of shortness of breath. In the emergency department chest x-ray was done and showed pulmonary congestion, elevated creatinine Congestive heart failure - Diastolic CHF - On IV lasix Cor pulmonale - Pulmonary consulted Atrial fibrillation - Held Coumadin because of GI bleed TREY - Resolved Hypokalemia - repleted - will check Dementia - supportive care HIV/AIDS - Restart home medication GI bleed - Gl was consulted and they did EGD and showed 2 deep ulcers with fibrous base, no active bleeding - on PPI - Advance diet Hypernatremia - Resolved DVT prophylaxis - SCDs because of GI bleed Disposition - Her [facility] and discussed with [facility] and said he will look at it again. History Interval history: Patient has dementia, oriented to self and place. Patient was not in pain or in distress. Hospitalist Physical - Physical exam Narrative exam: Not in cardiopulmonary distress. The patient is morbidly obese. Vital signs as documented. Head exam is unremarkable. No scleral icterus . Neck is without jugular venous distension, thyromegaly, or carotid bruits. Lungs are clear to auscultation. Cardiac exam reveals irregular rate and Rhythm. Abdominal exam reveals normal bowel sounds. Extremities are nonedematous. 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 - Constitutional Vitals: Temp Pulse Resp BP Pulse Ox 97.9 F 73 16 100/49 95 08/21/17 11:53 08/21/17 11:53 08/21/17 11:53 08/21/17 11:53 08/21/17 11:53 General appearance: Present: no acute distress Results - Labs CBC & Chem 7: 08/18/17 07:22 08/20/17 06:45 Labs: Laboratory Last Values WBC 8.8 K/mm3 (4.5-11.0) 08/18/17 07:22 RBC 3.17 M/mm3 (3.65-5.03) L 08/18/17 07:22 Hgb 8.5 gm/dl (10.1-14.3) L 08/18/17 07:22 Hct 26.3 % (30.3-42.9) L 08/18/17 07:22 MCV 83 fl (79-97) 08/18/17 07:22 MCH 27 pg (28-32) L 08/18/17 07:22 MCHC 32 % (30-34) 08/18/17 07:22 RDW 17.8 % (13.2-15.2) H 08/18/17 07:22 Plt Count 257 K/mm3 (140-440) 08/18/17 07:22 Lymph % (Auto) 20.7 % (13.4-35.0) 08/18/17 07:22 [place] % (Auto) 14.7 % (0.0-7.3) H 08/18/17 07:22 Eos % (Auto) 0.5 % (0.0-4.3) 08/18/17 07:22 Baso % (Auto) 0.5 % (0.0-1.8) 08/18/17 07:22 Lymph # 1.8 K/mm3 (1.2-5.4) 08/18/17 07:22 [place] # 1.3 K/mm3 (0.0-0.8) H 08/18/17 07:22 Eos # 0.0 K/mm3 (0.0-0.4) 08/18/17 07:22 Baso # 0.0 K/mm3 (0.0-0.1) 08/18/17 07:22 Add Manual Diff Complete 08/06/17 00:21 Total Counted 100 08/06/17 00:21 Seg Neutrophils % 63.6 % (40.0-70.0) 08/18/17 07:22 Seg Neuts % (Manual) 84.0 % (40.0-70.0) H 08/06/17 00:21 Band Neutrophils % 2.0 % 08/06/17 00:21 Lymphocytes % (Manual) 6.0 % (13.4-35.0) L 08/06/17 00:21 Reactive Lymphs % (Man) 0 % 08/06/17 00:21 Monocytes % (Manual) 7.0 % (0.0-7.3) 08/06/17 00:21 Eosinophils % (Manual) 0 % (0.0-4.3) 08/06/17 00:21 Basophils % (Manual) 0 % (0.0-1.8) 08/06/17 00:21 Metamyelocytes % 0 % 08/06/17 00:21 Myelocytes % 1.0 % 08/06/17 00:21 Promyelocytes % 0 % 08/06/17 00:21 Blast Cells % 0 % 08/06/17 00:21 Nucleated RBC % 4.0 % (0.0-0.9) H 08/06/17 00:21 Seg Neutrophils # 5.6 K/mm3 (1.8-7.7) 08/18/17 07:22 Seg Neutrophils # Man 8.1 K/mm3 (1.8-7.7) H 08/06/17 00:21 Band Neutrophils # 0.2 K/mm3 08/06/17 00:21 Lymphocytes # (Manual) 0.6 K/mm3 (1.2-5.4) L 08/06/17 00:21 Abs React Lymphs (Man) 0.0 K/mm3 08/06/17 00:21 Monocytes # (Manual) 0.7 K/mm3 (0.0-0.8) 08/06/17 00:21 Eosinophils # (Manual) 0.0 K/mm3 (0.0-0.4) 08/06/17 00:21 Basophils # (Manual) 0.0 K/mm3 (0.0-0.1) 08/06/17 00:21 Metamyelocytes # 0.0 K/mm3 08/06/17 00:21 Myelocytes # 0.1 K/mm3 08/06/17 00:21 Promyelocytes # 0.0 K/mm3 08/06/17 00:21 Blast Cells # 0.0 K/mm3 08/06/17 00:21 WBC Morphology Not Reportable 08/06/17 00:21 Hypersegmented Neuts Not Reportable 08/06/17 00:21 Hyposegmented Neuts Not Reportable 08/06/17 00:21 Hypogranular Neuts Not Reportable 08/06/17 00:21 Smudge Cells Not Reportable 08/06/17 00:21 Toxic Granulation Not Reportable 08/06/17 00:21 Toxic Vacuolation Not Reportable 08/06/17 00:21 Dohle Bodies Not Reportable 08/06/17 00:21 Pelger-Huet Anomaly Not Reportable 08/06/17 00:21 [place] Rods Not Reportable 08/06/17 00:21 Platelet Estimate Consistent w auto 08/06/17 00:21 Clumped Platelets Not Reportable 08/06/17 00:21 Plt Clumps, EDTA Not Reportable 08/06/17 00:21 Large Platelets Not Reportable 08/06/17 00:21 Giant Platelets Not Reportable 08/06/17 00:21 Platelet Satelliting Not Reportable 08/06/17 00:21 Plt Morphology Comment Not Reportable 08/06/17 00:21 RBC Morphology Not Reportable 08/06/17 00:21 Dimorphic RBCs Not Reportable 08/06/17 00:21 Polychromasia Not Reportable 08/06/17 00:21 Hypochromasia 1+ 08/06/17 00:21 Poikilocytosis Not Reportable 08/06/17 00:21 Anisocytosis Not Reportable 08/06/17 00:21 Microcytosis Not Reportable 08/06/17 00:21 Macrocytosis Not Reportable 08/06/17 00:21 Spherocytes Not Reportable 08/06/17 00:21 Pappenheimer Bodies Not Reportable 08/06/17 00:21 Sickle Cells Not Reportable 08/06/17 00:21 Target Cells Few 08/06/17 00:21 Tear Drop Cells Not Reportable 08/06/17 00:21 Ovalocytes Not Reportable 08/06/17 00:21 Helmet Cells Not Reportable 08/06/17 00:21 [place] Bodies Not Reportable 08/06/17 00:21 [place] Rings Not Reportable 08/06/17 00:21 [place] Cells Not Reportable 08/06/17 00:21 Bite Cells Not Reportable 08/06/17 00:21 Crenated Cell Not Reportable 08/06/17 00:21 Elliptocytes Not Reportable 08/06/17 00:21 Acanthocytes (Spur) Not Reportable 08/06/17 00:21 Rouleaux Not Reportable 08/06/17 00:21 Hemoglobin C Crystals Not Reportable 08/06/17 00:21 Schistocytes Not Reportable 08/06/17 00:21 Malaria parasites Not Reportable 08/06/17 00:21 Carlo Bodies Not Reportable 08/06/17 00:21 Hem Pathologist Commnt No 08/06/17 00:21 PT 13.6 Sec. (12.2-14.9) 08/15/17 06:27 INR 0.99 (0.87-1.13) 08/15/17 06:27 APTT 24.2 Sec. (24.2-36.6) 08/06/17 00:21 D-Dimer 765.25 ng/mlDDU (0-234) H 08/06/17 00:21 POC ABG pH 7.625 (7.35-7.45) H 08/09/17 12:46 POC ABG pCO2 45.7 (35-45) H 08/09/17 12:46 POC ABG pO2 30 (80-105) L 08/09/17 12:46 POC ABG HCO3 47.5 08/09/17 12:46 POC ABG Total CO2 49 08/09/17 12:46 POC ABG O2 Sat 69 08/09/17 12:46 POC ABG Base Excess 26 08/09/17 12:46 FiO2 21 % 08/09/17 12:46 Sodium 141 mmol/L (137-145) 08/20/17 06:45 Potassium 4.9 mmol/L (3.6-5.0) D 08/20/17 06:45 Chloride 98.1 mmol/L (98-107) 08/20/17 06:45 Carbon Dioxide 29 mmol/L (22-30) 08/20/17 06:45 Anion Gap 19 mmol/L 08/20/17 06:45 BUN 11 mg/dL (7-17) 08/20/17 06:45 Creatinine 1.0 mg/dL (0.7-1.2) 08/20/17 06:45 Estimated GFR > 60 ml/min 08/20/17 06:45 BUN/Creatinine Ratio 11 % 08/20/17 06:45 Glucose 87 mg/dL (65-100) 08/20/17 06:45 POC Glucose 127 (70-105) H 08/21/17 12:00 Calcium 8.2 mg/dL (8.4-10.2) L 08/20/17 06:45 Total Creatine Kinase 37 units/L (30-135) 08/06/17 12:45 CK-MB (CK-2) < 1.0 ng/mL (0.0-4.0) 08/06/17 12:45 CK-MB (CK-2) Rel Index 2.7 (0-4) 08/06/17 12:45 Troponin T < 0.010 ng/mL (0.00-0.029) 08/06/17 12:45 Blood Type A POSITIVE 08/09/17 19:52 Antibody Screen Negative 08/09/17 19:52 Crossmatch See Detail 08/09/17 19:52
[2017-08-22] MEDS: LASIX IV SCH ×2 (06:48→18:35)
[2017-08-22] MEDS: PROTONIX PO SCH ×2 (11:10→22:40)
[2017-08-22] MEDS: LOPRESSOR PO SCH ×2 (11:11→22:20)
[2017-08-22] MEDS: ZIAGEN PO SCH (11:11)
[2017-08-22] MEDS: PREZISTA PO SCH (11:11)
[2017-08-22] MEDS: SODIUM CHLORIDE FLUSH SYRINGE 10 ML IV SCH ×2 (11:12→22:40)
[2017-08-22] MEDS: TIVICAY (NF) PO SCH (11:21)
--- NOTE | 2017-08-22 15:52 | Discharge Summary ---
Providers - Providers Date of Admission: 08/06/17 04:21 Date of discharge: 08/23/17 Attending physician: OMAR LOWE MD 08/08/17 09:29 Physical Therapy Evaluation and Treat [CONS] Routine Comment: Reason For Exam: deconditioned 08/09/17 11:07 Consult to Physician [CONS] Routine Comment: Consulting Provider: CONCHIS PAUL Physician Instructions: Reason For Exam: GI bleed 08/20/17 06:42 Consult to Wound/ET Nurse [CONS] Routine Reason For Exam: wound eval, skin tear to right buttock. 08/21/17 09:52 Occupational Therapy Evaluate and Treat [CONS] Routine Comment: Need Evaluation Notes for subacute rehab referral Reason For Exam: Eval and treat/deconditioning Primary care physician: ERICK ESPOSITO Hospitalization Reason for admission: respiratory failure, corpulmonale Condition: Stable Hospital course: 82 year old -Spanish female with medical history significant for dementia, HIV/AIDS, A. fib on anticoagulation was brought to the emergency department for the complains of shortness of breath. In the emergency department chest x-ray was done and showed pulmonary congestion, elevated creatinine Congestive heart failure - Diastolic CHF - continue lasix Cor pulmonale - need out patient sleep study Atrial fibrillation - rate controlled, no anticoagulation due to advanced age and GI bleed TREY - Resolved Hypokalemia - repleted Dementia - supportive care HIV/AIDS - Continue HAART, follow with Dr Max GI bleed - resolved, continue PPI Hypernatremia - Resolved Plan was to send her to SNF, her insurance declined it. patient Discharged home in a stable condition. Disposition: [id number] HOME UNDER HOME [facility] Time spent for discharge: 38 minutes - Discharge Diagnoses (1) Atrial fibrillation Status: Chronic Qualifiers: Atrial fibrillation type: paroxysmal Qualified Code(s): I48.0 - Paroxysmal atrial fibrillation (2) Congestive heart failure Status: Acute Qualifiers: Heart failure type: diastolic (3) Cor pulmonale Status: Chronic (4) Heart failure with preserved ejection fraction Status: Chronic (5) Hypoxia Status: Acute Core Measure Documentation - Palliative Care Palliative Care/ Comfort Measures: Not Applicable - Core Measures Any of the following diagnoses?: none Exam - Physical Exam Narrative exam: Not in cardiopulmonary distress. The patient is morbidly obese. Vital signs as documented. Head exam is unremarkable. No scleral icterus . Neck is without jugular venous distension, thyromegaly, or carotid bruits. Lungs are clear to auscultation. Cardiac exam reveals irregular rate and Rhythm. Abdominal exam reveals normal bowel sounds. Extremities are nonedematous. 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 - Constitutional Vitals: Temp Pulse Resp BP Pulse Ox 98.6 F 79 22 112/54 96 08/22/17 08:22 08/22/17 08:22 08/22/17 08:22 08/22/17 08:22 08/22/17 10:00 Plan Activity: no restrictions Weight Bearing Status: Full Weight Bearing Diet: low cholesterol, low salt Special Instructions: home oxygen via Follow up with: ERICK ESPOSITO MD [Primary Care Provider] - 7 Days SALVADOR BANKS MD [Staff Physician] - 14 Days Forms: Warfarin Discharge Instruction Prescriptions: Furosemide [Lasix] 20 mg PO DAILY #30 tablet Metoprolol [Lopressor TAB] 25 mg PO BID #60 tablet Pantoprazole [Protonix TAB] 40 mg PO BID #30 tablet Potassium Chloride 10 meq PO DAILY #30 tablet.er
--- NOTE | 2017-08-22 17:40 | Progress Note ---
Assessment and Plan Assessment and plan: 82 year old -[place] female with medical history significant for dementia, HIV/AIDS, A. fib on anticoagulation was brought to the emergency department for the complains of shortness of breath. In the emergency department chest x-ray was done and showed pulmonary congestion, elevated creatinine Congestive heart failure - Diastolic CHF - On IV lasix Cor pulmonale - Pulmonary consulted Atrial fibrillation - Held Coumadin because of GI bleed TREY - Resolved Hypokalemia - repleted - will check Dementia - supportive care HIV/AIDS - Restart home medication GI bleed - Gl was consulted and they did EGD and showed 2 deep ulcers with fibrous base, no active bleeding - on PPI - Advance diet Hypernatremia - Resolved DVT prophylaxis - SCDs because of GI bleed Disposition - Her [facility] and discussed with well care and said he will look at it again. - Patient Problems (1) Atrial fibrillation Current Visit: Yes Status: Chronic Qualifiers: Atrial fibrillation type: paroxysmal Qualified Code(s): I48.0 - Paroxysmal atrial fibrillation (2) Congestive heart failure Current Visit: Yes Status: Acute Qualifiers: Heart failure type: diastolic (3) Cor pulmonale Current Visit: Yes Status: Chronic (4) Heart failure with preserved ejection fraction Current Visit: Yes Status: Chronic (5) Hypoxia Current Visit: Yes Status: Acute History Interval history: Patient has dementia, oriented to self and place. Patient was not in pain or in distress. Hospitalist Physical - Physical exam Narrative exam: Not in cardiopulmonary distress. The patient is morbidly obese. Vital signs as documented. Head exam is unremarkable. No scleral icterus . Neck is without jugular venous distension, thyromegaly, or carotid bruits. Lungs are clear to auscultation. Cardiac exam reveals irregular rate and Rhythm. Abdominal exam reveals normal bowel sounds. Extremities are nonedematous. 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 - Constitutional Vitals: Temp Pulse Resp BP Pulse Ox 100.4 F H 86 18 106/50 98 08/22/17 16:42 08/22/17 16:42 08/22/17 16:42 08/22/17 16:42 08/22/17 16:42 General appearance: Present: no acute distress Results - Labs CBC & Chem 7: 08/18/17 07:22 08/20/17 06:45 Labs: Laboratory Last Values WBC 8.8 K/mm3 (4.5-11.0) 08/18/17 07:22 RBC 3.17 M/mm3 (3.65-5.03) L 08/18/17 07:22 Hgb 8.5 gm/dl (10.1-14.3) L 08/18/17 07:22 Hct 26.3 % (30.3-42.9) L 08/18/17 07:22 MCV 83 fl (79-97) 08/18/17 07:22 MCH 27 pg (28-32) L 08/18/17 07:22 MCHC 32 % (30-34) 08/18/17 07:22 RDW 17.8 % (13.2-15.2) H 08/18/17 07:22 Plt Count 257 K/mm3 (140-440) 08/18/17 07:22 Lymph % (Auto) 20.7 % (13.4-35.0) 08/18/17 07:22 Cowley % (Auto) 14.7 % (0.0-7.3) H 08/18/17 07:22 Eos % (Auto) 0.5 % (0.0-4.3) 08/18/17 07:22 Baso % (Auto) 0.5 % (0.0-1.8) 08/18/17 07:22 Lymph # 1.8 K/mm3 (1.2-5.4) 08/18/17 07:22 Cowley # 1.3 K/mm3 (0.0-0.8) H 08/18/17 07:22 Eos # 0.0 K/mm3 (0.0-0.4) 08/18/17 07:22 Baso # 0.0 K/mm3 (0.0-0.1) 08/18/17 07:22 Add Manual Diff Complete 08/06/17 00:21 Total Counted 100 08/06/17 00:21 Seg Neutrophils % 63.6 % (40.0-70.0) 08/18/17 07:22 Seg Neuts % (Manual) 84.0 % (40.0-70.0) H 08/06/17 00:21 Band Neutrophils % 2.0 % 08/06/17 00:21 Lymphocytes % (Manual) 6.0 % (13.4-35.0) L 08/06/17 00:21 Reactive Lymphs % (Man) 0 % 08/06/17 00:21 Monocytes % (Manual) 7.0 % (0.0-7.3) 08/06/17 00:21 Eosinophils % (Manual) 0 % (0.0-4.3) 08/06/17 00:21 Basophils % (Manual) 0 % (0.0-1.8) 08/06/17 00:21 Metamyelocytes % 0 % 08/06/17 00:21 Myelocytes % 1.0 % 08/06/17 00:21 Promyelocytes % 0 % 08/06/17 00:21 Blast Cells % 0 % 08/06/17 00:21 Nucleated RBC % 4.0 % (0.0-0.9) H 08/06/17 00:21 Seg Neutrophils # 5.6 K/mm3 (1.8-7.7) 08/18/17 07:22 Seg Neutrophils # Man 8.1 K/mm3 (1.8-7.7) H 08/06/17 00:21 Band Neutrophils # 0.2 K/mm3 08/06/17 00:21 Lymphocytes # (Manual) 0.6 K/mm3 (1.2-5.4) L 08/06/17 00:21 Abs React Lymphs (Man) 0.0 K/mm3 08/06/17 00:21 Monocytes # (Manual) 0.7 K/mm3 (0.0-0.8) 08/06/17 00:21 Eosinophils # (Manual) 0.0 K/mm3 (0.0-0.4) 08/06/17 00:21 Basophils # (Manual) 0.0 K/mm3 (0.0-0.1) 08/06/17 00:21 Metamyelocytes # 0.0 K/mm3 08/06/17 00:21 Myelocytes # 0.1 K/mm3 08/06/17 00:21 Promyelocytes # 0.0 K/mm3 08/06/17 00:21 Blast Cells # 0.0 K/mm3 08/06/17 00:21 WBC Morphology Not Reportable 08/06/17 00:21 Hypersegmented Neuts Not Reportable 08/06/17 00:21 Hyposegmented Neuts Not Reportable 08/06/17 00:21 Hypogranular Neuts Not Reportable 08/06/17 00:21 Smudge Cells Not Reportable 08/06/17 00:21 Toxic Granulation Not Reportable 08/06/17 00:21 Toxic Vacuolation Not Reportable 08/06/17 00:21 Dohle Bodies Not Reportable 08/06/17 00:21 Pelger-Huet Anomaly Not Reportable 08/06/17 00:21 Bryant Rods Not Reportable 08/06/17 00:21 Platelet Estimate Consistent w auto 08/06/17 00:21 Clumped Platelets Not Reportable 08/06/17 00:21 Plt Clumps, EDTA Not Reportable 08/06/17 00:21 Large Platelets Not Reportable 08/06/17 00:21 Giant Platelets Not Reportable 08/06/17 00:21 Platelet Satelliting Not Reportable 08/06/17 00:21 Plt Morphology Comment Not Reportable 08/06/17 00:21 RBC Morphology Not Reportable 08/06/17 00:21 Dimorphic RBCs Not Reportable 08/06/17 00:21 Polychromasia Not Reportable 08/06/17 00:21 Hypochromasia 1+ 08/06/17 00:21 Poikilocytosis Not Reportable 08/06/17 00:21 Anisocytosis Not Reportable 08/06/17 00:21 Microcytosis Not Reportable 08/06/17 00:21 Macrocytosis Not Reportable 08/06/17 00:21 Spherocytes Not Reportable 08/06/17 00:21 Pappenheimer Bodies Not Reportable 08/06/17 00:21 Sickle Cells Not Reportable 08/06/17 00:21 Target Cells Few 08/06/17 00:21 Tear Drop Cells Not Reportable 08/06/17 00:21 Ovalocytes Not Reportable 08/06/17 00:21 Helmet Cells Not Reportable 08/06/17 00:21 Cheek-[place] Bodies Not Reportable 08/06/17 00:21 [place] Rings Not Reportable 08/06/17 00:21 Hermes Cells Not Reportable 08/06/17 00:21 Bite Cells Not Reportable 08/06/17 00:21 Crenated Cell Not Reportable 08/06/17 00:21 Elliptocytes Not Reportable 08/06/17 00:21 Acanthocytes (Spur) Not Reportable 08/06/17 00:21 Rouleaux Not Reportable 08/06/17 00:21 Hemoglobin C Crystals Not Reportable 08/06/17 00:21 Schistocytes Not Reportable 08/06/17 00:21 Malaria parasites Not Reportable 08/06/17 00:21 Carlo Bodies Not Reportable 08/06/17 00:21 Hem Pathologist Commnt No 08/06/17 00:21 PT 13.6 Sec. (12.2-14.9) 08/15/17 06:27 INR 0.99 (0.87-1.13) 08/15/17 06:27 APTT 24.2 Sec. (24.2-36.6) 08/06/17 00:21 D-Dimer 765.25 ng/mlDDU (0-234) H 08/06/17 00:21 POC ABG pH 7.625 (7.35-7.45) H 08/09/17 12:46 POC ABG pCO2 45.7 (35-45) H 08/09/17 12:46 POC ABG pO2 30 (80-105) L 08/09/17 12:46 POC ABG HCO3 47.5 08/09/17 12:46 POC ABG Total CO2 49 08/09/17 12:46 POC ABG O2 Sat 69 08/09/17 12:46 POC ABG Base Excess 26 08/09/17 12:46 FiO2 21 % 08/09/17 12:46 Sodium 141 mmol/L (137-145) 08/20/17 06:45 Potassium 4.9 mmol/L (3.6-5.0) D 08/20/17 06:45 Chloride 98.1 mmol/L (98-107) 08/20/17 06:45 Carbon Dioxide 29 mmol/L (22-30) 08/20/17 06:45 Anion Gap 19 mmol/L 08/20/17 06:45 BUN 11 mg/dL (7-17) 08/20/17 06:45 Creatinine 1.0 mg/dL (0.7-1.2) 08/20/17 06:45 Estimated GFR > 60 ml/min 08/20/17 06:45 BUN/Creatinine Ratio 11 % 08/20/17 06:45 Glucose 87 mg/dL (65-100) 08/20/17 06:45 POC Glucose 127 (70-105) H 08/21/17 12:00 Calcium 8.2 mg/dL (8.4-10.2) L 08/20/17 06:45 Total Creatine Kinase 37 units/L (30-135) 08/06/17 12:45 CK-MB (CK-2) < 1.0 ng/mL (0.0-4.0) 08/06/17 12:45 CK-MB (CK-2) Rel Index 2.7 (0-4) 08/06/17 12:45 Troponin T < 0.010 ng/mL (0.00-0.029) 08/06/17 12:45 Blood Type A POSITIVE 08/09/17 19:52 Antibody Screen Negative 08/09/17 19:52 Crossmatch See Detail 08/09/17 19:52
[2017-08-23 06:22] VITALS: BP 117/65
[2017-08-23] MEDS: LASIX IV SCH (06:46)
[2017-08-23] MEDS: PROTONIX PO SCH (09:17)
[2017-08-23] MEDS: LOPRESSOR PO SCH (09:17)
[2017-08-23] MEDS: PREZISTA PO SCH (09:18)
[2017-08-23] MEDS: SODIUM CHLORIDE FLUSH SYRINGE 10 ML IV SCH (09:18)
[2017-08-23] MEDS: TIVICAY (NF) PO SCH (09:18)
[2017-08-23] MEDS: ZIAGEN PO SCH (09:18)
== END 2017-08-23 13:20 | disposition home health service (06) | DRG 974 ==
LOC: ED 22:50 → 4A 08-06 04:21
PROVIDERS: ADMIT Internal Medicine; ATTEND Internal Medicine
PROC: 0DJ08ZZ Inspection of Upper Intestinal Tract, Via Natural or Artificial Opening Endoscopic (ICD-10-PCS; principal; 2017-08-06)
PROC: 4A033R1 Measurement of Arterial Saturation, Peripheral, Percutaneous Approach (ICD-10-PCS; 2017-08-06)
PROC: 5A09457 Assistance with Respiratory Ventilation, 24-96 Consecutive Hours, Continuous Positive Airway Pressure (ICD-10-PCS; 2017-08-06)
PROC: 30233N1 Transfusion of Nonautologous Red Blood Cells into Peripheral Vein, Percutaneous Approach (ICD-10-PCS; 2017-08-10)
PROC: 5A09357 Assistance with Respiratory Ventilation, Less than 24 Consecutive Hours, Continuous Positive Airway Pressure (ICD-10-PCS; 2017-08-10)
PROC: 5A09457 Assistance with Respiratory Ventilation, 24-96 Consecutive Hours, Continuous Positive Airway Pressure (ICD-10-PCS; 2017-08-12)
PROC: 5A09557 Assistance with Respiratory Ventilation, Greater than 96 Consecutive Hours, Continuous Positive Airway Pressure (ICD-10-PCS; 2017-08-16)
DX: B20 Human immunodeficiency virus [HIV] disease (principal); J18.9 Pneumonia, unspecified organism; R65.11 Systemic inflammatory response syndrome (SIRS) of non-infectious origin with acute organ dysfunction; I50.33 Acute on chronic diastolic (congestive) heart failure; K26.4 Chronic or unspecified duodenal ulcer with hemorrhage; N17.9 Acute kidney failure, unspecified; E87.0 Hyperosmolality and hypernatremia; I13.0 Hypertensive heart and chronic kidney disease with heart failure and stage 1 through stage 4 chronic kidney disease, or unspecified chronic kidney disease; F03.90 Unspecified dementia, unspecified severity, without behavioral disturbance, psychotic disturbance, mood disturbance, and anxiety; R09.02 Hypoxemia; I48.2 Chronic atrial fibrillation; Z96.652 Presence of left artificial knee joint; E87.5 Hyperkalemia; G47.33 Obstructive sleep apnea (adult) (pediatric); N18.9 Chronic kidney disease, unspecified; I27.29 Other secondary pulmonary hypertension; E66.01 Morbid (severe) obesity due to excess calories; Z68.39 Body mass index [BMI] 39.0-39.9, adult
CPT/HCPCS: 36415; 36600; 71045; 78582; 80048; 82550; 82553; 82803; 82962; 83880; 84132; 84484; 85007; 85014; 85018; 85025; 85027; 85379; 85610; 85730; 86850; 86900; 86901; 86920; 93005; 93010; 93306; 94660; 94760; 96374; A9540; A9558; C9113; G8978-GP; G8979-GP; G8987-GO; G8988-GO; J1650; J1940; J1956; J2704; J7030; J7040; J7070; P9016